=== PATIENT | female | born 1945 | race Caucasian/White ===

== ENCOUNTER → 2017-10-15 07:02 | Outpatient (CLI) | payer MEDICARE, OTHER, SELFPAY ==
--- NOTE | 2017-10-15 07:08 | BI_ITS ---
MAMMOGRAPHY - BILATERAL SCREENING REASON FOR EXAM: Female, 72 years old. Routine annual screening examination. PERTINENT HISTORY: Mother with breast cancer. Aunt with breast cancer. TECHNIQUE: Digital bilateral breast fabiana (3D mammographic acquisition) in the CC and MLO projections. 2-D mediolateral oblique (MLO) and craniocaudad (CC) views of both breasts were obtained. CAD: Full Field Digital Mammography with Computer Added Detection was performed. COMPARISON: Comparison is made with prior study dated October 10, 2016 and October 09, 2015. FINDINGS: Breast Composition: There are scattered areas of fibroglandular density. There are no dominant masses or suspicious calcifications. No other significant abnormalities are identified. There has been no significant change since the prior study. BI/SCREENING MAMM (CAD), BILAT IMPRESSION: Stable bilateral screening mammogram. Yearly follow-up mammogram recommended. (A) ASSESSMENT CATEGORY: BIRADS Category 1: Negative. A letter regarding these results will be sent to the patient by the facility within 30 days. Approximately 10% of breast cancers are not detected by mammography. A normal mammogram should not delay biopsy of a clinically suspicious abnormality. [id number] Electronically Signed: Sandro Velazquez MD at 9:46 EDT Tel [phone], Service support ,
== END ==
DX: Z12.31 Encounter for screening mammogram for malignant neoplasm of breast (principal)
CPT/HCPCS: 77063; 77067

== ENCOUNTER → 2018-10-28 07:47 | Outpatient (CLI) | payer MEDICARE, OTHER, SELFPAY ==
--- NOTE | 2018-10-28 07:50 | BI_ITS ---
MAMMOGRAPHY - BILATERAL SCREENING REASON FOR EXAM: Female, 73 years old. Routine annual screening examination. PERTINENT HISTORY: Mother with breast cancer. Aunt with breast cancer. TECHNIQUE: Digital bilateral breast nacho (3D mammographic acquisition) in the CC and MLO projections. 2-D mediolateral oblique (MLO) and craniocaudad (CC) views of both breasts were obtained. CAD: Full Field Digital Mammography with Computer Added Detection was performed. COMPARISON: Comparison is made with prior study dated October 15, 2017 and October 10, 2016. FINDINGS: Breast Composition: There are scattered areas of fibroglandular density. There are no dominant masses or suspicious calcifications. No other significant abnormalities are identified. There has been no significant change since the prior study. BI/SCREEN MAMM (CAD) W/NACHO BILAT IMPRESSION: Stable bilateral screening mammogram. Yearly follow-up mammogram recommended. (A) ASSESSMENT CATEGORY: BIRADS Category 1: Negative. A letter regarding these results will be sent to the patient by the facility within 30 days. Approximately 10% of breast cancers are not detected by mammography. A normal mammogram should not delay biopsy of a clinically suspicious abnormality. [id number] Electronically Signed: Sandro Velazquez, at 10:38 EDT , Service support ,
== END ==
DX: Z12.31 Encounter for screening mammogram for malignant neoplasm of breast (principal); Z80.3 Family history of malignant neoplasm of breast
CPT/HCPCS: 77063; 77067

== ENCOUNTER → 2019-11-01 14:29 | Outpatient (CLI) | payer MEDICARE, OTHER, SELFPAY ==
--- NOTE | 2019-11-01 14:34 | BI_ITS ---
MAMMOGRAPHY - BILATERAL SCREENING REASON FOR EXAM: Female, 74 years old. Routine annual screening examination. PERTINENT HISTORY: Mother with breast cancer. Aunt with breast cancer. TECHNIQUE: Digital bilateral breast nacho (3D mammographic acquisition) in the CC and MLO projections. 2-D mediolateral oblique (MLO) and craniocaudad (CC) views of both breasts were obtained. CAD: Full Field Digital Mammography with Computer Added Detection was performed. COMPARISON: Comparison is made with prior study dated 10/28/2018 and 10/15/2017. FINDINGS: Breast Composition: There are scattered areas of fibroglandular density. There are no dominant masses or suspicious calcifications. Stable bilateral benign-appearing axillary lymph nodes. No other significant abnormalities are identified. There has been no significant change since the prior study. BI/SCREEN MAMM (CAD) W/NACHO BILAT IMPRESSION: Stable bilateral screening mammogram. Yearly follow-up mammogram recommended. (A) ASSESSMENT CATEGORY: BIRADS Category 2: Benign. A letter regarding these results will be sent to the patient by the facility within 30 days. Approximately 10% of breast cancers are not detected by mammography. A normal mammogram should not delay biopsy of a clinically suspicious abnormality. [id number] Electronically Signed: Sandro Velazquez, at 15:17 EDT , Service support ,
== END ==
DX: Z12.31 Encounter for screening mammogram for malignant neoplasm of breast (principal)
CPT/HCPCS: 77063; 77067

== ENCOUNTER → 2020-11-06 09:44 | Outpatient (CLI) | payer MEDICARE, OTHER, SELFPAY ==
--- NOTE | 2020-11-06 09:47 | BI_ITS ---
MAMMOGRAPHY - BILATERAL SCREENING REASON FOR EXAM: Female, 75 years old. Routine annual screening examination. PERTINENT HISTORY: Mother with breast cancer. TECHNIQUE: Digital bilateral breast nacho (3D mammographic acquisition) in the CC and MLO projections. 2-D mediolateral oblique (MLO) and craniocaudad (CC) views of both breasts were obtained. CAD: Full Field Digital Mammography with Computer Added Detection was performed. COMPARISON: Comparison is made with prior study dated 11/01/2019 and 10/28/2018. FINDINGS: Breast Composition: There are scattered areas of fibroglandular density. There are no dominant masses or suspicious calcifications. Stable benign-appearing bilateral axillary lymph nodes. No other significant abnormalities are identified. There has been no significant change since the prior study. BI/SCRN MAMM (CAD)W/NACHO BILAT IMPRESSION: Stable bilateral screening mammogram. Yearly follow-up mammogram recommended. (A) ASSESSMENT CATEGORY: BIRADS Category 2: Benign. A letter regarding these results will be sent to the patient by the facility within 30 days. Approximately 10% of breast cancers are not detected by mammography. A normal mammogram should not delay biopsy of a clinically suspicious abnormality. [id number] Electronically Signed: Sandro Velazquez MD at 11:50 EDT , Service support ,
== END ==
DX: Z12.31 Encounter for screening mammogram for malignant neoplasm of breast (principal)
CPT/HCPCS: 77063; 77067

== ENCOUNTER 2021-06-07 06:12 | Outpatient (CLI) | payer MEDICARE, OTHER, SELFPAY ==
--- NOTE | 2021-06-07 06:34 | MRI_ITS ---
EXAM: MR HEAD WITHOUT AND WITH INTRAVENOUS CONTRAST CLINICAL INDICATION: TRIGEMINAL NERVE DISORDER ;right lower jaw pain TECHNIQUE: Multiplanar and multisequence MR images of the brain were obtained without and with intravenous contrast. This report was created using [employer] report [employer] technology. CONTRAST: IV 19ml Dotarem COMPARISON: None. FINDINGS: BRAIN AND EXTRA-AXIAL SPACES: Unremarkable. No intra- or extra-axial hemorrhage. No evidence of acute infarct. No intracranial mass or mass effect. There is preservation of the archer/white matter interface. Posterior fossa structures are unremarkable. Normal ventricles and cisterns. Normal Meckel''s cave cisterns. No suspicious abnormality of the trigeminal nerves. Following IV contrast administration, there are no suspicious enhancing lesions intraaxially and extra-axially. SELLA: Unremarkable. Normal sella turcica, pituitary gland, infundibular stalk, optic chiasm and hypothalamus. AUDITORY SYSTEM: Unremarkable. The internal auditory canals are patent. BONES/JOINTS: Unremarkable. No discrete lytic or blastic abnormalities. SINUSES: Unremarkable as visualized. Clear. MASTOID AIR CELLS: Unremarkable as visualized. Clear. ORBITS: Unremarkable as visualized. Both globes, extraocular muscles, optic nerves and retrobulbar fat appear unremarkable. VASCULATURE: Unremarkable as visualized. Normal flow voids in the major intracranial circulation. MRI/Brain W/WO Contrast IMPRESSION: Negative MRI brain without and with intravenous contrast including the trigeminal nerves and pathways. Electronically Signed: Nasim Acharya MD at 10:31 EST Reading Location ID and State: [facility] / [place] , Service support ,
[2021-06-07 06:45] LABS: CREATININE FINGERSTICK 0.7 mg/dL (0.55-1.02); EGFR FINGERSTICK > 60.0000 mL/min (>60)
== END 2021-06-07 23:59 | disposition home or self-care (01) ==
LOC: MRI 06:14
PROVIDERS: Referring Provider Psychiatry & Neurology Neurology; Visit Provider Psychiatry & Neurology Neurology
DX: G50.9 Disorder of trigeminal nerve, unspecified (principal)
CPT/HCPCS: 70553; A9575

== ENCOUNTER → 2021-11-14 | Outpatient (CLI) | payer MEDICARE, OTHER, SELFPAY ==
--- NOTE | 2021-11-14 09:54 | BI_ITS ---
MAMMOGRAPHY - BILATERAL SCREENING 3-D TOMOSYNTHESIS REASON FOR EXAM: Female, 76 years old. SCREENING PERTINENT HISTORY: No significant family history. TECHNIQUE: 2-D mammograms and 3-D Tomosynthesis of the breast (s) were performed. CAD was performed. COMPARISON: 11/06/2020 FINDINGS: The breast composition is composed of scattered fibroglandular density. Scattered benign calcifications are seen. No dense spiculated masses or suspicious microcalcifications are identified. No architectural distortion is identified. There is no skin thickening or retraction. There has been no significant change since the prior study. BI/SCRN MAMM (CAD)W/NACHO BILAT IMPRESSION: No mammographic signs of malignancy. Routine yearly mammograms recommended. ASSESSMENT CATEGORY: BIRADS Category 1: Negative. A letter regarding these results will be sent to the patient by the facility within 30 days. FOLLOW UP RECOMMENDATION: Yearly follow up mammogram recommended. (A) Approximately 10% of breast cancers are not detected by mammography. A normal mammogram should not delay biopsy of a clinically suspicious abnormality. Electronically Signed: Luis Watt MD at 10:49 EDT ,
== END | disposition home or self-care (01) ==
LOC: OPBI 09:52
DX: Z12.31 Encounter for screening mammogram for malignant neoplasm of breast (principal)
CPT/HCPCS: 77063; 77067

== ENCOUNTER → 2022-11-15 | Outpatient (CLI) | payer MEDICARE, OTHER, SELFPAY ==
--- NOTE | 2022-11-15 09:57 | BI_ITS ---
MAMMOGRAPHY - BILATERAL SCREENING REASON FOR EXAM: Female, 77 years old. Routine annual screening examination. PERTINENT HISTORY: Mother with breast cancer. Aunt with breast cancer. TECHNIQUE: Digital bilateral breast nacho (3D mammographic acquisition) in the CC and MLO projections. 2-D mediolateral oblique (MLO) and craniocaudad (CC) views of both breasts were obtained. CAD: Full Field Digital Mammography with Computer Added Detection was performed. COMPARISON: Comparison is made with prior study dated November 14, 2021 and November 06, 2020. FINDINGS: Breast Composition: There are scattered areas of fibroglandular density. There are no dominant masses or suspicious calcifications. No other significant abnormalities are identified. There has been no significant change since the prior study. BI/SCRN MAMM (CAD)W/NACHO BILAT IMPRESSION: Stable bilateral screening mammogram. Yearly follow-up mammogram recommended. (A) ASSESSMENT CATEGORY: BIRADS Category 1: Negative. A letter regarding these results will be sent to the patient by the facility within 30 days. Approximately 10% of breast cancers are not detected by mammography. A normal mammogram should not delay biopsy of a clinically suspicious abnormality. [id number] Electronically Signed: Sandro Velazquez MD at 10:54 EDT ,
== END | disposition home or self-care (01) ==
LOC: OPBI 09:56
DX: Z12.31 Encounter for screening mammogram for malignant neoplasm of breast (principal)
CPT/HCPCS: 77063; 77067

== ENCOUNTER → 2023-11-19 | Outpatient (CLI) | payer MEDICARE, OTHER, SELFPAY ==
--- NOTE | 2023-11-19 12:42 | BI_ITS ---
MAMMOGRAPHY - BILATERAL SCREENING REASON FOR EXAM: Female, 78 years old. Routine annual screening examination. PERTINENT HISTORY: Mother with breast cancer. Aunt with breast cancer. TECHNIQUE: Digital bilateral breast nacho (3D mammographic acquisition) in the CC and MLO projections. 2-D mediolateral oblique (MLO) and craniocaudad (CC) views of both breasts were obtained. CAD: Full Field Digital Mammography with Computer Added Detection was performed. COMPARISON: Comparison is made with prior study November 15, 2022 and November 14, 2021. FINDINGS: Breast Composition: There are scattered areas of fibroglandular density. There are no dominant masses or suspicious calcifications. No other significant abnormalities are identified. There has been no significant change since the prior study. BI/SCRN MAMM (CAD)W/NACHO BILAT IMPRESSION: Stable bilateral screening mammogram. Yearly follow-up mammogram recommended. (A) ASSESSMENT CATEGORY: BIRADS Category 1: Negative. A letter regarding these results will be sent to the patient by the facility within 30 days. Approximately 10% of breast cancers are not detected by mammography. A normal mammogram should not delay biopsy of a clinically suspicious abnormality. [id number] Electronically Signed: Sandro Velazquez MD at 13:39 EDT ,
== END | disposition home or self-care (01) ==
LOC: OPBI 12:41
DX: Z12.31 Encounter for screening mammogram for malignant neoplasm of breast (principal)
CPT/HCPCS: 77063; 77067

== ENCOUNTER → 2024-11-19 | Outpatient (CLI) | payer MEDICARE, OTHER, SELFPAY ==
--- NOTE | 2024-11-19 07:50 | BI_ITS ---
EXAM: SCRN MAMM (CAD)W/NACHO BILAT DATE: 11/19/2024 CLINICAL HISTORY: F, Age 79 y/o , SCREEN TECHNIQUE: SCRN MAMM (CAD)W/NACHO BILAT COMPARISON: Prior exam(s) dated 11/19/2023, 11/15/2022, 11/14/2021. FINDINGS: TISSUE DENSITY: There are scattered areas of fibroglandular density. Bilateral Breast Mammographic Findings: No significant masses, calcifications or other abnormalities are identified. BI/SCRN MAMM (CAD)W/NACHO BILAT IMPRESSION: There is no mammographic evidence of malignancy. OVERALL FINAL ASSESSMENT BI-RADS Must pick one of these options! RECOMMENDATION: Must pick one of these options! A letter with findings and recommendations will be mailed to the patient. Reading Location: [id number]
== END | disposition home or self-care (01) ==
LOC: OPBI 07:49
DX: Z12.31 Encounter for screening mammogram for malignant neoplasm of breast (principal)
CPT/HCPCS: 77063; 77067

== ENCOUNTER → 2024-11-30 | Outpatient (CLI) | payer MEDICARE, OTHER, SELFPAY ==
--- NOTE | 2024-11-30 | FLU_PTH ---
PATIENT: WAYNE YE LOC: [facility] U#:[id number] AGE/SX: 79/F ROOM: RE11/30/[address]: Dr. Annmarie Mcdaniel MD : 1945 BED: DIS: 11/30/2024 SPEC #: [id number] RECD: 11/30/24 15:45 STATUS: NYDIA REQ #: [id number] DENISSE: 11/30/24 00:[address]: Annmarie Mcdaniel DEPT: CYTOLOGY RECD BY: Jag Ahuja ENTERED: 12/01/24 08:18 SP TYPE: Fluid OTHR DR: Dr. Brooke Downey, DO Tissues: A - Urine Procedures: Special Stain Group II Cytospin Fluid HEADER OPERATION: Not noted PRE-OP DIAGNOSIS: Gross hematuria TISSUE SUBMITTED: A- Urine for cytology - voided DIAGNOSIS CYTOLOGY A. Urine, voided (cytospin): - No malignant cells identified. - Predominantly squamous cells with acute inflammation. CYTOLOGY STUDY Slides are reviewed. CYTOLOGY GROSS A. Received is 70 ml of yellow-cloudy fluid labeled with the patient's name and and designated per the requisition as urine. Submitted for cytology preparation. Mr 12/01/2024 CPT: 28139
[2024-11-30 15:47] LABS: Cytology, Body Fluid / CSF SEE PATHOLOGY REPORT
== END | disposition home or self-care (01) ==
LOC: LABSPEC 15:44
PROVIDERS: Visit Provider Urology
DX: R31.0 Gross hematuria (principal)
CPT/HCPCS: 88108; 88305; 88313

== ENCOUNTER → 2024-11-30 | Outpatient (CLI) | payer MEDICARE, OTHER, SELFPAY ==
[2024-11-30 15:55] LABS: Anion Gap 11 (5-15); BUN 19 mg/dL (4-19); BUN/Creat Ratio 24.9 RATIO (10-20); Calcium,Total 9.0 mg/dL (7.6-11.0); Carbon Dioxide 26.5 mmol/L (21.0-32.0); Chloride 103 mmol/L (98-108); Glucose 94 mg/dL (70-99); Potassium 4.0 mmol/L (3.3-5.1)
== END | disposition home or self-care (01) ==
LOC: MTLAB 12:52
PROVIDERS: Referring Provider Urology; Visit Provider Urology
DX: R31.9 Hematuria, unspecified (principal)
CPT/HCPCS: 36415; 80048

== ENCOUNTER → 2024-12-15 | Outpatient (CLI) | payer MEDICARE, OTHER, SELFPAY ==
--- NOTE | 2024-12-15 06:08 | CT_ITS ---
PROCEDURE: CT ABD/PELVIS W/WO CONTRAST 12/15/2024 REASON FOR EXAM: HEMATURIA Gross hematuria for 2 months. Prior hysterectomy. Personal history of hypertension, skin cancer TECHNIQUE: Procedure Code: [id number] Modality: CT Procedure: CT ABD/PELVIS W/WO CONTRAST Coronal and Sagittal reconstruction series were provided. CONTRAST: Optiray 320 VOLUME: 96 mL One or more dose reduction techniques were used (e.g., Automated exposure control, adjustment of the mA and/or kV according to patient size, use of iterative reconstruction technique. RADIATION DOSE SUMMARY: CTDlvol: 71 mGy DLP: 3006 mGycm COMPARISON: None FINDINGS: Lung bases: Clear Liver: Tiny portal venous shunt in the anterior segment right hepatic lobe shown on the portal venous phase images. Otherwise, the liver is normal. Gallbladder: Cholecystectomy. No biliary duct dilation. Spleen: Normal Pancreas: Normal Adrenals: Normal Kidneys: No renal calculus or collecting system dilation is seen. No renal mass. Small cortical defect left midpole likely the sequelae of old infarct or inflammation. Bladder: Nearly empty but otherwise normal. Unremarkable on delayed images. Reproductive Organs: Hysterectomy. Ovaries are normal. No adnexal mass. Of the level of the anus and vaginal introitus there is qualitative thickening and indistinctness of the adjacent fat planes in the directly adjacent ischiorectal fossa. The entirety of this region is not imaged. Bowel: Stomach is normal. Small bowel is not dilated. Modest amount of formed stool is present within the otherwise unremarkable colon. Appendix: The appendix is not identified. There is no inflammatory process identified in the right lower quadrant to suggest appendicitis. Lymph nodes: None appear enlarged. Vasculature: Mild atherosclerotic plaque without aneurysm. Peritoneum / Retroperitoneum: No free air, free fluid or mass. Bones: Mild decreased bone mineralization. Grade 1 anterolisthesis L4 on L5 related to facet arthropathy. No pars defects. Multilevel degenerative disc disease with marginal endplate spurring in the lower thoracic and lumbar spine. Lower lumbar facet hypertrophy. CT/CT Abd/Pelvis W/WO Contrast IMPRESSION: 1. Cholecystectomy 2. No renal calculus or renal mass seen. No collecting system dilation seen. 3. Hysterectomy. 4. Qualitative fullness and indistinctness of the fat planes adjacent to the v aginal introitus. Recommend direct inspection to ensure no inflammation. No abscess seen. The entirety of the caudal aspect of the vaginal introitus was not included. 5. Multilevel degenerative disc disease. Grade 1 anterolisthesis L4 on L5 fro m degenerative change. Reading Location: [id number]
--- OUTSIDE RECORDS SUMMARY | 2024-12-15 06:11 | XMS RPT_ITS | CCD ---
Author Organization [facility] ion [facility] Care Team Providers Care 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 Name Role Phone SHAYAN GELLER, DR MIEER Primary Care Physician [phone] Luann King PT Unavailable Unavailable Hardeep Downey DO Primary Care Provider Fidel Whitehead Unavailable Shayan, Dr. Hardeep Brock Primary Care Unavailab ronnell Garcia, Dr. Yodit Varghese Referring Giacomo Garcia, Dr. Yodit Varghese Attending Giacomo Garcia, Dr. Yodit Varghese Admitting Giacomo Downey, Dr. Hardeep Brock Referring Unavailab ronnell Downey, Dr. Hardeep Brock Primary Care Unavailab ronnell Garcia, Dr. Yodit Varghese Attending Giacomo Garcia, Dr. Yodit Varghese Admitting Giacomo Downey DO, Hardeep Brock Primary Care Provider Unav ailable Hardeep Downey DO Primary Care Provider HARDEEP DOWNEY Primary Care Unavailable YODIT GARCIA Referring Unavailable ABDIRAHMAN PASTRANA Attending Unavailabl e SHAYAN , DR MEIER Attending Unavailable SHAYAN DO, DR MEIER Primary Care Unavailable TERESA ROSE, DR JACOBO Attending Unavailabl e SHAYAN , DR MEIER Primary Care Unavailable TERESA ROSE, DR JACOBO Attending Unavailabl e SHAYAN DO, DR MEIER Primary Care Unavailable SHAYAN DO, DR MEIER Attending Unavailable SHAYAN DO, DR MEIER Primary Care Unavailable SHAYAN DO, DR MEIER Attending Unavailable SHAYAN DO, DR MEIER Primary Care Unavailable SHAYAN DO, DR MEIER Attending Unavailable SHAYAN DO, DR MEIER Primary Care Unavailable SHAYAN DO, DR MEIER Attending Unavailable SHAYAN DO, DR MEIER Primary Care Unavailable SHAYAN DO, DR MEIER Attending Unavailable SHAYAN DO, DR MEIER Primary Care Unavailable SHAYAN DO, DR MEIER Attending Unavailable SHAYAN DO, DR MEIER Primary Care Unavailable Shayan DO, Dr. Hardeep Brock Primary Care Provider Shayan DO, Dr. Hardeep Brock Attending Provider [phone] Shayan DO, Dr. Hardeep Brock Referring Provider [phone] Violeta ROSE, Dr. Anguiano Attending Provider [phone] SHAYAN DO, DR MEIER Primary Care Unavailable SHAYAN DO, DR MEIER Attending Unavailable SHAYAN DO, DR MEIER Primary Care Unavailable SHAYAN DO, DR MEIER Attending Unavailable SHAYAN DO, DR MEIER Primary Care Unavailable MELIZA ROSE, DR YELENA Skaggs Attending Unavailab le SHAYAN DO, DR MEIER Primary Care Unavailable SHAYAN DO, DR MEIER Attending Unavailable SHAYAN DO, DR MEIER Primary Care Unavailable SHAYAN DO, DR MEIER Attending Unavailable SHAYAN DO, DR MEIER Primary Care Unavailable SHAYAN DO, DR MEIER Attending Unavailable SHAYAN DO, DR MEIER Primary Care Unavailable SHAYAN DO, DR MEIER Attending Unavailable SHAYAN DO, DR MEIER Primary Care Unavailable SHAYAN DO, DR MEIER Attending Unavailable WynesAnnmarie haider Attending Unavailable Hardeep Downey Primary Care Unavailable ShayanHardeep Referring Unavailable ShayanHardeep Primary Care Unavailable Annmarie Mcdaniel Attending Unavailable Annmarie Mcdaniel Referring Unavailable Annmarie Mcdaniel Attending Unavailable Hardeep Downey Primary Care Unavailable Annmarie Mcdaniel Attending Unavailable Annmarie Mcdaniel Referring Unavailable ShayanHardeep mosquera Primary Care Unavailable ShayanHardeep Referring Unavailable ShayanHardeep Primary Care Unavailable ShayanHardeep salazar Attending Unavailable Allergies Allergy Classification Reported Allergen(s) Allergy Type Date of Onset Reaction(s) Facility (7 sources) Penicillin; Translations: [penicillins] Drug Allergy Rash [facility] Comment on above: RASH (11 sources) Penicillins; Translations: [penicillins] Drug allergy 7 Rash [facility] (4 sources) Sulfonamides; Translations: [sulfonamides] Drug allergy [facility] Comment on above: dermatitis (20 sources) Sulfonamides (Antibiotic); Translations: [sulfa drugs] Drug allergy itching [facility] (20 sources) traMADol; Translations: [tramadol] Drug Allergy 9 Memory impairment (finding), Mental Status Change [facility] (20 sources) carBAMazepine; Translations: [carbamazepine] Drug Allergy 3 Fatigue (finding), Dizziness (finding), Other: See Comments [facility] (16 sources) Penicillin; Translations: [penicillins] Drug Allergy Rash [facility] Comment on above: RASH (5 sources) Sulfonamides (Antibiotic); Translations: [SULFA (SULFONAMIDE ANTIBIOTICS)] Propensity to adverse reactions 7 Itching [facility] (4 sources) environmental [Other] Propensity to adverse reactions 0 [facility] (1 source) OTHER; Translations: [OTHER] Propensity to adverse reactions (disorder) 0 [facility] (3 sources) seasonal enviromental Allergy to substance varies [facility] (1 source) traMADol Drug Allergy 5 [facility] Repository Medications Current Medications Medication Drug Class(es) Dates Sig (Normalized) Sig (Original) acetaminophen 1000 mg oral tablet (19 sources) Start: 01-02-2022 take 1 tablet by mouth once daily Tylenol Dose : 1,000 mg = 2 tab(s), Oral, q8hr, not to exceed 3000 mg/day, 0 Refill(s) Start Date: 01/02/22 Status: Ordered Medication Dispense Status: Completed Total Allowed Fills: 1 Fills Dispensed: 0 Start: 12-21-2021 take 1 dose by mouth once ksenia y Tylenol Dose : 325 mg =, Oral, Daily, 0 Refill(s) Start Date: 12/21/21 Status: Ordered acetaminophen 500 mg / diphenhydrAMINE hydrochloride 25 mg oral tablet (2 sources) Histamine-1 Receptor Antagonist Start: 02-22-2020 take 1 tablet by mouth once daily at bedtime as needed for sleep Tylenol PM Extra Strength oral tablet Dose = 1 tab(s), Oral, qHS, PRN as needed for sleep, 0 Refill(s) Start Date: 02/22/20 Status: Ordered albuterol MDI (90 mcg/inh) CFC free inhalation aerosol (8 sources) Start: 10-21-2023 take 1-2 puff(s) by inhalation every four hours as needed for wheezing albuterol MDI (90 mcg/inh) CFC free inhalation aerosol See Instructions, PRN Shortness of breath or wheezing, 1 to 2 puff(s) Inhalation q4h, # 18 gram(s), 0 Refill(s), Pharmacy: [facility]/pharmacy #[id number], Wheezing, 163.8, cm, 10/21/23 8:25:00 EDT, Height, kg, 10/21/23 8:25:00 EDT, Dosing Weight Start Date: 10/21/23 Status: Ordered Medication Dispense Status: Completed Quantity: 18.0 Unit: g Total Allowed Fills: 1 Fills Dispensed: 0 Indications: Wheezing; Start: 10-21-2023 take 1-2 puff(s) by inhalation every four hours as needed for wheezing albuterol MDI (90 mcg/inh) CFC free inhalation aerosol See Instructions, PRN Shortness of breath or wheezing, 1 to 2 puff(s) Inhalation q4h, # 18 gram(s), 0 Refill(s), Pharmacy: [facility]/pharmacy #[id number], Wheezing, 163.8, cm, 10/21/23 8:25:00 EDT, Height, kg, 10/21/23 8:25:00 EDT, Dosing Weight Start Date: 10/21/23 Status: Ordered Quantity: 18.0 Unit: g Repeat number: 1 Indications: Wheezing; Start: 10-21-2023 take 1-2 puff(s) by inhalation every four hours as needed for wheezing albuterol MDI (90 mcg/inh) CFC free inhalation aerosol See Instructions, PRN Shortness of breath or wheezing, 1 to 2 puff(s) Inhalation q4h, # 18 gram(s), 0 Refill(s), Pharmacy: [facility]/pharmacy #[id number], Wheezing, 163.8, cm, 10/21/23 8:25:00 EDT, Height, kg, 10/21/23 8:25:00 EDT, Dosing Weight Start Date: 10/21/23 Status: Ordered ascorbic acid 500 mg oral tablet (19 sources) Vitamin C Start: 12-21-2021 take 1 dose by mouth once daily Vitamin C Dose : 500 mg =, Oral, qDay, 0 Refill(s) Start Date: 12/21/21 Status: Ordered Medication Dispense Status: Completed Total Allowed Fills: 1 Fills Dispensed: 0 aspirin 81 mg delayed release oral tablet (1 source) Platelet Aggregation Inhibitor, Nonsteroidal Anti-inflammatory Drug Start: 01-02-2022 End: 02-01-2022 take 1 tablet by mouth twice daily aspirin 81 mg oral delayed release tablet Dose : 81 mg = 1 tab(s), Oral, BID, Take 81 mg aspirin twice daily with food for 4 weeks postoperatively for DVT prophylaxis, # 60 tab(s), 0 Refill(s), [facility]acy: [id number], 160, cm, 01/01/22 12:32:00 EDT, Height Start Date: 01/02/22 Stop Date: 02/01/22 Status: Ordered bifidobacterium animalis [id number] unt / lactobacillus acidophilus [id number] unt oral capsule (4 sources) L. acidophilus/Bifid. animalis 32 billion cell cap Take by mouth as directed. 0 Active Comment on above: Take by mouth as dir ected. cetirizine hydrochloride 10 mg oral tablet (6 sources) Histamine-1 Receptor Antagonist Start: 05-13-2024 take 1 tablet by mouth once daily Cetirizine 10 mg tablet Active 10 mg PO daily November 30, 2024 12:00am Start: 09-03-2021 Zyrtec 10 mg o ral tablet Dose : 10 mg = 1 tab(s), Oral, qDay, # 30 tab(s), 2 Refill(s), Pharmacy: [facility] 162.2, cm, 09/03/21 16:48:00 EDT, Height Start Date: 09/03/21 Status: Ordered cholecalciferol 0.05 mg oral capsule (5 sources) Vitamin D Start: 11-30-2024 take 1 capsule by mouth once daily Cholecalciferol (Vitamin D3) 50 mcg (2,000 unit) capsule Active 50 ug PO daily November 30, 2024 12:00am cholecalciferol (VITAMIN D3) 1,000 unit tab tablet Take 2,000 Units by mouth. 0 Active Comment on above: Take 2,000 Units by mouth. cinnamon preparation 500 mg oral tablet (11 sources) Non-Standardized Food Allergenic Extract Start: 12-28-2019 take 1 capsule by mouth once daily Cinnamon 500 mg oral capsule 1 cap(s), Oral, qDay, 0 Refill(s) Start Date: 12/28/19 Status: Ordered Start: 12-28-2019 Cinnamon 500 m g oral capsule See Instructions, 0 Refill(s) Start Date: 12/28/19 Status: Ordered clobetasol propionate 0.5 mg/ml topical solution (4 sources) Corticosteroid Start: 10-21-2023 clobetasol 0.0 5% topical solution MASSAGE INTO THE SCALP AND LEAVE ON OVERNIGHT EVERY NIGHT FOR 2WKS, THEN USE 2-3X WEEK NEEDED Start Date: 10/21/23 Status: Ordered Co Q-10 100 mg oral capsule (4 sources) Start: 06-13-2023 Co Q-10 100 mg oral capsule Dose : 100 mg = 1 cap(s), Oral, Daily, 0 Refill(s) Start Date: 06/13/23 Status: Ordered Cranberry preparation (8 sources) Non-Standardized Food Allergenic Extract, Non-Standardized Plant Allergenic Extract Start: 11-17-2023 cranberry oral capsule 0 Refill(s) Start Date: 11/17/23 Status: Ordered Medication Dispense Status: Completed Total Allowed Fills: 1 Fills Dispensed: 0 Start: 11-17-2023 cranberry oral capsule 0 Refill(s) Start Date: 11/17/23 Status: Ordered Repeat number: 1 Start: 11-17-2023 cranberry oral capsule 0 Refill(s) Start Date: 11/17/23 Status: Ordered DME MISCellaneous (2 sources) Start: 08-24-2020 DME MISCellane ous See Instructions, onetouch verio test strips 1 strip 3 times daily # 300 for 90 days and 3 refills., # 1 EA, 0 Refill(s), [facility]acy: [facility] Diabetes, 163, cm, 08/24/20 9:26:00 EDT, Height, 97.3, kg, 08/24/20 9:26:00 EDT, Dosing Weight Start Date: 08/24/20 Status: Ordered docusate sodium 50 mg / sennosides, long-term 8.6 mg oral tablet (1 source) Start: 01-02-2022 End: 01-04-2022 take 1 tablet by mouth twice daily Senokot S 50 mg-8.6 mg oral tablet Dose = 2 tab(s), Oral, BID, Take until first bowel movement, then as needed, # 30 tab(s), 0 Refill(s), [facility]acy: [facility] #[id number], 160, cm, 01/01/22 12:32:00 EDT, Height Start Date: 01/02/22 Stop Date: 01/04/22 Status: Ordered famotidine 20 mg oral tablet (1 source) Histamine-2 Receptor Antagonist Start: 01-02-2022 Pepcid 20 mg oral tablet Dose : 20 mg = 1 tab(s), Oral, qDay, # 30 tab(s), 0 Refill(s), Pharmacy: [facility] #[id number], 160, cm, 01/01/22 12:32:00 EDT, Height Start Date: 01/02/22 Status: Ordered fexofenadine hydrochloride 180 mg oral tablet (20 sources) Histamine-1 Receptor Antagonist Start: 05-26-2014 Archana Oral, 0 Refill(s) Start Date: 05/26/14 Status: Ordered Start: 09-05-2009 Archana 24 Suzan r Allergy oral tablet Dose : 180 mg = 1 tab(s), Oral, Daily Start Date: 01/01/22 Status: Ordered Medication Dispense Status: Completed Total Allowed Fills: 1 Fills Dispensed: 0 Comment on above: Take one(1) tablet d aily. gabapentin 100 mg oral capsule (1 source) Anti-epileptic Agent Start: 08-08-19 gabapentin 100 mg oral capsule Dose : 100 mg = 1 cap(s), Oral, qDay, # 60 cap(s), 0 Refill(s), 97.2 Start Date: 08/07/21 Status: Ordered ketoconazole 20 mg/ml medicated shampoo (4 sources) Azole Antifungal Start: 10-21-19 ketoconazole 2% topical shampoo LATHER THE SCALP AND ALLOW TO SIT FOR 5-10 MINUTES BEFORE RINSING 3-4 DAYS A WEEK Start Date: 10/21/23 Status: Ordered Lactobacillus Combination No.9 (Adult 50 Plus Probiotic) 4 billion cell capsule (1 source) Start: 12-01-19 take 4 capsules by mouth once daily Lactobacillus Combination No.9 (Adult 50 Plus Probiotic) 4 billion cell capsule Active 4000 NMA PO daily November 30, 2024 12:00am administer with a meal levothyroxine sodium 0.075 mg oral tablet (12 sources) l-Thyroxine Start: 12-01-19 take 1 tablet by mouth once daily Levothyroxine 75 mcg tablet Active 75 ug PO daily November 30, 2024 12:00am Start: 09-17-2024 levothyroxine 75 mcg (0.075 mg) oral tablet Dose : 75 mcg = 1 tab(s), Oral, qDay, # 100 tab(s), 1 Refill(s), Pharmacy: [facility]/pharmacy #[id number], 161, cm, 09/07/24 11:24:00 EDT, Height, kg, 09/07/24 11:24:00 EDT, Dosing Weight Start Date: 09/17/24 Status: Ordered Medication Dispense Status: Completed Quantity: 100.0 Unit: tab(s) Total Allowed Fills: 2 Fills Dispensed: 0 Start: 02-19-2024 levothyroxine 75 mcg (0.075 mg) oral tablet Dose : 75 mcg = 1 tab(s), Oral, qDay, # 90 tab(s), 1 Refill(s), Pharmacy: [facility]/pharmacy #[id number], 161.5, cm, 12/16/23 14:00:00 EDT, Height, kg, 12/16/23 14:00:00 EDT, Dosing Weight Start Date: 02/19/24 Status: Ordered Quantity: 90.0 Unit: tab(s) Repeat number: 2 Start: 10-01-2023 take 1 tablet by mouth once le vothyroxine (SYNTHROID) 75 mcg tablet Take 1 tablet by mouth every afternoon. 0 10/01/2023 Active Start: 09-11-2023 levothyroxine 75 mcg (0.075 mg) oral tablet Dose : 75 mcg = 1 tab(s), Oral, qDay, # 90 tab(s), 1 Refill(s), Pharmacy: [facility]/pharmacy #[id number], 164, cm, 09/11/23 8:52:00 EDT, Height, kg, 09/11/23 8:52:00 EDT, Dosing Weight Start Date: 09/11/23 Status: Ordered Start: 08-12-2023 levothyroxine 75 mcg (0.075 mg) oral tablet Dose : 75 mcg = 1 tab(s), Oral, qDay, # 30 tab(s), 1 Refill(s), Pharmacy: [facility]/pharmacy #[id number], 164, cm, 08/12/23 14:16:00 EDT, Height, kg, 08/12/23 14:16:00 EDT, Dosing Weight Start Date: 08/12/23 Status: Ordered Start: 07-15-2023 levothyroxine 75 mcg (0.075 mg) oral tablet Dose : 75 mcg = 1 tab(s), Oral, qDay, # 30 tab(s), 1 Refill(s), [id number], 164, cm, 07/15/23 13:30:00 EDT, Height, kg, 07/15/23 13:30:00 EDT, Dosing Weight Start Date: 07/15/23 Status: Ordered liothyronine sodium 0.005 mg oral tablet (11 sources) l-Triiodothyronine Start: 11-30-2024 take 1 tablet by mouth once daily Liothyronine 5 mcg tablet Active 5 ug PO daily November 30, 2024 12:00am Start: 08-10-2024 liothyronine 5 mcg oral tablet Dose : 5 mcg = 1 tab(s), Oral, Daily, # 90 tab(s), 1 Refill(s), Pharmacy: [facility]/pharmacy #[id number], 161, cm, 06/15/24 14:05:00 EDT, Height, kg, 06/15/24 14:05:00 EDT, Dosing Weight Start Date: 08/10/24 Status: Ordered Medication Dispense Status: Completed Quantity: 90.0 Unit: tab(s) Total Allowed Fills: 2 Fills Dispensed: 0 Start: 10-06-2023 take 1 tablet by mouth once li othyronine (CYTOMEL) 5 mcg tablet Take 1 tablet by mouth every afternoon. 0 10/06/2023 Active Start: 09-11-2023 liothyronine 5 mcg oral tablet Dose : 5 mcg = 1 tab(s), Oral, Daily, # 90 tab(s), 1 Refill(s), Pharmacy: [facility]/pharmacy #[id number], 164, cm, 09/11/23 8:52:00 EDT, Height, kg, 09/11/23 8:52:00 EDT, Dosing Weight Start Date: 09/11/23 Status: Ordered Start: 08-12-2023 liothyronine 5 mcg oral tablet Dose : 5 mcg = 1 tab(s), Oral, Daily, # 30 tab(s), 1 Refill(s), Pharmacy: [facility]/pharmacy #[id number], 164, cm, 08/12/23 14:16:00 EDT, Height, kg, 08/12/23 14:16:00 EDT, Dosing Weight Start Date: 08/12/23 Status: Ordered lisinopril 2.5 mg oral tablet (20 sources) Angiotensin Converting Enzyme Inhibitor Start: 06-15-2024 take 1 tablet by mouth once daily Lisinopril 2.5 mg tablet Active 2.5 mg PO daily November 30, 2024 12:00am Start: 09-05-2009 lisinopril 5 m g oral tablet Dose : 5 mg = 1 tab(s), Oral, qPM, # 90 tab(s), 3 Refill(s), Pharmacy: [facility]/pharmacy #[id number], 164, cm, 06/13/23 9:28:00 EDT, Height, kg, 06/13/23 9:28:00 EDT, Dosing Weight Start Date: 06/13/23 Status: Ordered Comment on above: Take one(1) tablet d aily. magnesium oxide 500 mg oral tablet (15 sources) Start: 07-15-19 20 Magnesium Oxide 500 mg tab Take by mouth. 0 07/15/2019 Active Comment on above: Take by mouth. meloxicam 7.5 mg oral tablet (1 source) Nonsteroidal Anti-inflammatory Drug Start: 01-03-20 Mobic 7.5 mg oral tablet Dose : 7.5 mg = 1 tab(s), Oral, BIDM, Do not take any other nonsteroidal anti-inflammatories while on meloxicam/Mobic, # 60 tab(s), 0 Refill(s), Pharmacy: [facility] #[id number], 160, cm, 01/01/22 12:32:00 EDT, Height Start Date: 01/02/22 Status: Ordered metroNIDAZOLE 0.0075 mg/mg topical gel (4 sources) Nitroimidazole Antimicrobial Start: 10-21-19 metroNIDAZOLE 0.75% topical gel APPLY TO THE FULL FACE ONCE DAILY, MAY MIX 50/50 WITH A GENTLE MOISTURIZER. Start Date: 10/21/23 Status: Ordered Misc Medication (2 sources) Start: 11-22-19 Misc Medication 0 Refill(s), 97.3 Start Date: 11/21/20 Status: Ordered Multivitamin preparation (19 sources) Start: 12-22-19 take 1 tablet by mouth once daily Multivitamin Dose = 1 tab(s), Oral, Daily, 0 Refill(s) Start Date: 12/21/21 Status: Ordered Medication Dispense Status: Completed Total Allowed Fills: 1 Fills Dispensed: 0 Start: 12-21-2021 take 1 tablet by krishan th once daily Multivitamin Dose = 1 tab(s), Oral, Daily, 0 Refill(s) Start Date: 12/21/21 Status: Ordered Repeat number: 1 Start: 12-21-2021 take 1 tablet by krishan th once daily Multivitamin Dose = 1 tab(s), Oral, Daily, 0 Refill(s) Start Date: 12/21/21 Status: Ordered multivitamins(DAILY MULTIPLE TAB) (4 sources) Start: 09-05-2009 multivitamins(DAILY MULTIPLE TAB) Take one(1) tablet daily. ` 0 09/05/2009 Active Comment on above: Take one(1) tablet d aily. Omeprazole (12 sources) Proton Pump Inhibitor Start: 11-17-2023 omeprazole Oral, qDay, 0 Refill(s) Start Date: 11/17/23 Status: Ordered Start: 09-11-2023 take 1 capsule by mouth once o meprazole (PRILOSEC) 20 mg capsule Take 1 capsule by mouth every afternoon. 0 09/11/2023 Active Start: 09-11-2023 omeprazole 20 mg oral delayed release capsule Dose : 20 mg = 1 cap(s), Oral, qDay, # 90 cap(s), 0 Refill(s), Pharmacy: [facility]/pharmacy #[id number], 164, cm, 09/11/23 8:52:00 EDT, Height, kg, 09/11/23 8:52:00 EDT, Dosing Weight Start Date: 09/11/23 Status: Ordered Medication Dispense Status: Completed Quantity: 90.0 Unit: cap(s) Total Allowed Fills: 1 Fills Dispensed: 0 Omeprazole 20 mg capsule,delayed release(DR/EC) (1 source) Start: 11-30-2024 take 1 capsule by mouth once daily Omeprazole 20 mg capsule,delayed release(DR/EC) Active 20 mg PO daily November 30, 2024 12:00am oxyCODONE hydrochloride 5 mg oral tablet (1 source) Opioid Agonist Start: 01-02-2022 End: 01-09-2022 take 1-2 tablets by mouth every four hours as needed for pain oxyCODONE 5 mg oral tablet ( IMMEDIATE release ) See Instructions, PRN as needed for pain, 1-2 tab(s) Oral q4h, # 42 tab(s), 0 Refill(s), 01/09/22 8:10:00 EDT, [facility]acy: [facility] #[id number], Status post total left knee replacement, 160, cm, 01/01/22 12:32:00 EDT, Height, 88 Start Date: 01/02/22 Stop Date: 01/09/22 Status: Ordered phenylephrine hydrochloride 25 mg/ml ophthalmic solution (2 sources) alpha-1 Adrenergic Agonist Start: 10-14-2023 End: 10-14-2023 PHENYLephrine 2.5 % 1 Drop (AK-DILATE, EJNY-SYNEPHRINE) Pregnenolone Misc Powd (4 sources) Start: 10-17-2006 Pregnenolone Misc Powd 100 MG SR ONE DAILY 0 10/17/2006 Active Comment on above: 100 MG SR ONE DAILY Probiotic (20 sources) Start: 10-15-2018 take 1 capsule by mouth once daily Probiotic Dose = 1 cap(s), Oral, Daily, 0 Refill(s) Start Date: 10/15/18 Status: Ordered Medication Dispense Status: Completed Total Allowed Fills: 1 Fills Dispensed: 0 Start: 10-15-2018 take 1 capsule by [facility] once daily Probiotic Dose = 1 cap(s), Oral, Daily, 0 Refill(s) Start Date: 10/15/18 Status: Ordered Repeat number: 1 Start: 10-15-2018 take 1 capsule by [facility] once daily Probiotic Dose = 1 cap(s), Oral, Daily, 0 Refill(s) Start Date: 10/15/18 Status: Ordered Start: 10-15-2018 Probiotic Oral , Daily, 0 Refill(s) Start Date: 10/15/18 Status: Ordered proparacaine hydrochloride 5 mg/ml ophthalmic solution (3 sources) Local Anesthetic Start: 10-14-2023 End: 10-14-2023 proparacaine 0.5 % 1 Drop (ALCAINE) Start: 09-16-2022 End: 09-16-2022 proparacaine 0.5 % 1 Drop (A LCAINE) Quercitin (3 sources) Start: 09-07-2024 take 500 mg by mouth once daily Quercitin 500 mg, Oral, qDay, 0 Refill(s) Start Date: 09/07/24 Status: Ordered Medication Dispense Status: Completed Total Allowed Fills: 1 Fills Dispensed: 0 Start: 09-07-2024 take 500 mg by mouth once ksenia y Quercitin 500 mg, Oral, qDay, 0 Refill(s) Start Date: 09/07/24 Status: Ordered Repeat number: 1 thyroid (long-term) 60 mg oral tab let (15 sources) Start: 06-13-2023 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 60 mg oral tablet Dose : 60 mg = 1 tab(s), Oral, qDay, # 90 tab(s), 1 Refill(s), Pharmacy: [facility] #[id number], 164, cm, 06/13/23 9:28:00 EDT, Height, kg, 06/13/23 9:28:00 EDT, Dosing Weight Start Date: 06/13/23 Status: Ordered Start: 05-30-2022 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 60 mg oral tablet Dose : 60 mg = 1 tab(s), Oral, qDay, # 90 tab(s), 1 Refill(s), Pharmacy: [facility] #[id number], 162.6, cm, 12/19/22 8:07:00 EDT, Height, kg, 12/19/22 8:07:00 EDT, Dosing Weight Start Date: 12/19/22 Status: Ordered Start: 12-04-2021 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 60 mg oral tablet Dose : 60 mg = 1 tab(s), Oral, qDay, # 90 tab(s), 1 Refill(s), Pharmacy: [facility] #[id number], 162.2, cm, 12/04/21 10:18:00 EDT, Height, kg, 12/04/21 10:18:00 EDT, Dosing Weight Start Date: 12/04/21 Status: Ordered Start: 06-22-2021 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 60 mg oral tablet Dose : 60 mg = 1 tab(s), Oral, qDay, # 30 tab(s), 5 Refill(s), Pharmacy: [facility] 163, cm, 06/22/21 13:20:00 EDT, Height, kg, 06/22/21 13:10:00 EDT, Dosing Weight Start Date: 06/22/21 Status: Ordered Comment on above: Take 60 mg by mouth once daily. tropicamide 10 mg/ml ophthalmic solution (2 sources) Anticholinergic Start: 10-14-19 End: 10-14-19 tropicamide 1 % 1 Drop (MYDRIACYL) turmeric extract 500 mg oral capsule (4 sources) Start: 10-11-19 turmeric 500 mg oral capsule 0 Refill(s) Start Date: 10/11/19 Status: Ordered Tylenol PM Extra Strength oral tablet (2 sources) Start: 02-22-20 take 1 tablet by mouth once daily at bedtime as needed for sleep Tylenol PM Extra Strength oral tablet Dose = 1 tab(s), Oral, qHS, PRN as needed for sleep, 0 Refill(s) Start Date: 02/22/20 Status: Ordered Vitamin B Complex oral tablet (3 sources) Start: 09-08-19 take 1 tablet by mouth once daily Vitamin B Complex oral tablet Dose = 1 tab(s), Oral, Daily, 0 Refill(s) Start Date: 09/07/24 Status: Ordered Medication Dispense Status: Completed Total Allowed Fills: 1 Fills Dispensed: 0 Start: 09-07-2024 take 1 tablet by krishan th once daily Vitamin B Complex oral tablet Dose = 1 tab(s), Oral, Daily, 0 Refill(s) Start Date: 09/07/24 Status: Ordered Repeat number: 1 Vitamin D3 (19 sources) Start: 10-15-2018 Vitamin D3 2,0 00, Oral, Daily, 0 Refill(s) Start Date: 10/15/18 Status: Ordered Start: 10-15-2018 Vitamin D3 Dos e : 1,000 unit(s) = 1 tab(s), Oral, Daily, 0 Refill(s) Start Date: 10/15/18 Status: Ordered Vitamin D3 50 mcg (2000 intl units) oral capsule (4 sources) Start: 06-15-2024 Vitamin D3 50 mcg (2000 intl units) oral capsule Dose : 50 mcg = 1 cap(s), Oral, BID, 0 Refill(s) Start Date: 06/15/24 Status: Ordered Medication Dispense Status: Completed Total Allowed Fills: 1 Fills Dispensed: 0 Start: 06-15-2024 Vitamin D3 50 mcg (2000 intl units) oral capsule Dose : 50 mcg = 1 cap(s), Oral, BID, 0 Refill(s) Start Date: 06/15/24 Status: Ordered Repeat number: 1 Zinc (19 sources) Start: 12-21-2021 take 1 dose by mouth once daily Zinc Dose : 30 mg =, Oral, qDay, 0 Refill(s) Start Date: 12/21/21 Status: Ordered Medication Dispense Status: Completed Total Allowed Fills: 1 Fills Dispensed: 0 Start: 12-21-2021 take 1 dose by mouth once ksenia y Zinc Dose : 30 mg =, Oral, qDay, 0 Refill(s) Start Date: 12/21/21 Status: Ordered Repeat number: 1 Start: 12-21-2021 take 1 dose by mouth once ksenia y Zinc Dose : 30 mg =, Oral, qDay, 0 Refill(s) Start Date: 12/21/21 Status: Ordered Completed/Discontinued Medications Medication Drug Class(es) Dates Sig (Normalized) Sig (Original) fluorometholone 1 mg/ml ophthalmic suspension (4 sources) Corticosteroid Start: 09-09-2022 End: 10-04-2022 fluorometholone (FML LIQUID FILM) 0.1 % ophthalmic suspension Use 1 Drop in the left eye three times daily. 5 mL 2 09/20/2022 10/04/2022 Discontinued (Course of therapy completed) Comment on above: Use 1 Drop in both e yes three times daily. Use 1 Drop in the le ft eye three times daily. fluticasone propionate 0.05 mg/actuat metered dose nasal spray (8 sources) Corticosteroid Start: 05-13-2024 End: 08-11-2024 take 100 ug nasal route once daily fluticasone 50 mcg/inh NASAL spray 100 mcg Dose = 2 spray(s), Nostril, each, qDay, shake well before using, # 16 gram(s), 2 Refill(s), Pharmacy: [facility]/pharmacy #[id number], Acute rhinosinusitis Seasonal allergies, 161, cm, 05/13/24 16:07:00 EST, Height, kg, 05/13/24 16:07:00 EST, Dosing Weight Start Date: 05/13/24 Stop Date: 08/11/24 Status: Ordered Medication Dispense Status: Completed Quantity: 16.0 Unit: g Total Allowed Fills: 3 Fills Dispensed: 0 Indications: Acute sinusitis, unspecified; Other seasonal allergic rhinitis; Start: 03-11-2011 take 1-2 spray(s) na job route once daily fluticasone 50 mcg/Actuation NASAL nasal spray Indications: Allergic rhinitis, cause unspecified Use 1-2 Sprays in each nostril once daily. 1 Bottle 11 03/11/2011 Active Comment on above: Use 1-2 Sprays in ea ch nostril once daily. ketorolac tromethamine 5 mg/ml ophthalmic solution (5 sources) Nonsteroidal Anti-inflammatory Drug, Cyclooxygenase Inhibitor Start: 10-05-19 End: 10-14-19 24 take 1 drop(s) into the eye(s) three times daily keTORolac (ACULAR) 0.5 % ophthalmic solution Use 1 Drop in the right eye three times daily. 5 mL 2 10/04/2022 10/14/2023 Discontinued (Course of therapy completed) Start: 10-04-2022 take 1 drop(s) into the eye(s) three times daily keTORolac (ACULAR) 0.5 % ophthalmic solution Use 1 Drop in the right eye three times daily. 5 mL 2 10/04/2022 Active Start: 09-19-2022 End: 11-07-2022 take 1 drop(s) into the eye(s) four times daily keTORolac (ACULAR) 0.5 % ophthalmic solution Use 1 Drop in the left eye four times daily. 5 mL 1 10/03/2022 11/07/2022 Active Comment on above: Use 1 Drop in the ri ght eye four times daily. For 7 days, then 3 times daily until 10/24/2022 Use 1 Drop in the le ft eye four times daily. Use 1 Drop in the ri ght eye three times daily. prednisoLONE acetate 10 mg/ml ophthalmic suspension (5 sources) Corticosteroid Start: 10-04-2022 End: 10-14-2023 prednisoLONE acetate (PRED FORTE) 1 % ophthalmic suspension Use 1 Drop in the right eye three times daily. 5 mL 2 10/04/2022 10/14/2023 Discontinued (Course of therapy completed) Start: 10-04-2022 prednisoLONE a cetate (PRED FORTE) 1 % ophthalmic suspension Use 1 Drop in the right eye three times daily. 5 mL 2 10/04/2022 Active Start: 09-20-2022 End: 11-07-2022 prednisoLONE acetate (PRED F ORTE) 1 % ophthalmic suspension Use 1 Drop in the left eye four times daily. 5 mL 1 10/03/2022 11/07/2022 Active Comment on above: Use 1 Drop in the ri ght eye four times daily. For 7 days, then 3 times daily until 10/24/2022 Use 1 Drop in the le ft eye four times daily. Use 1 Drop in the ri ght eye three times daily. Problems Active Problems Problem Classification Problem Date Documented Date Episodic/Chronic Allergic reactions (6 sources) Allergy status to penicillin; Translations: [Allergy status to sulfonamides status] Onset: 10-03-2022 10-07-2022 Episodic Anxiety disorders (20 sources) Anxiety; Translations: [Claustrophobia] Onset: 01-02-2022 10-23-2018 Chronic Diabetes mellitus without complication (20 sources) Prediabetes; Translations: [Hyperglycemia] 07-15-2019 Episodic Disorders of lipid metabolism (20 sources) Hyperlipidemia; Translations: [Hyperlipidemia, unspecified] 07-15-2019 Chronic Essential hypertension (20 sources) Hypertensive disorder; Translations: [Essential (primary) hypertension] Onset: 10-03-2022 10-23-2018 Chronic Genitourinary symptoms and ill-defined conditions (6 sources) Blood in urine; Translations: [Hematuria, unspecified] Onset: 09-28-2024 11-30-2024 Episodic Malaise and fatigue (5 sources) Fatigue; Translations: [Other fatigue] Onset: 07-21-2024 Episodic Malignant neoplasm without specification of site (20 sources) Squamous cell carcinoma 10-23-2018 Chronic Mood disorders (20 sources) Recurrent major depressive episodes, moderate 06-27-2020 Chronic Mycoses (20 sources) Tinea pedis 06-22-2021 Episodic Nutritional deficiencies (20 sources) Vitamin D deficiency; Translations: [Vitamin D deficiency, unspecified] 10-23-2018 Chronic Osteoarthritis (20 sources) Osteoarthritis of knee; Translations: [Arthritis] Onset: 09-09-2022 12-04-2021 Chronic Other connective tissue disease (1 source) Presence of unspecified artificial knee joint; Translations: [Presence of unspecified artificial knee joint] Onset: 10-03-2022 Chronic Other connective tissue disease (1 source) Artificial knee joint present; Translations: [Presence of unspecified artificial knee joint] 10-07-2022 Chronic Other connective tissue disease (20 sources) Fibromyalgia 10-23-2018 Episodic Other connective tissue disease (1 source) Trochanteric bursitis of left hip; Translations: [Trochanteric bursitis, left hip] Episodic Other eye disorders (2 sources) Bilateral vitreous floaters; Translations: [Other vitreous opacities, bilateral] Onset: 10-14-2023 10-14-2023 Chronic Other eye disorders (1 source) H/O: L cataract extraction; Translations: [Cataract extraction status, left eye] Episodic Other eye disorders (2 sources) Dry eyes; Translations: [Dry eye syndrome of bilateral lacrimal glands] Onset: 10-14-2023 10-14-2023 Episodic Other eye disorders (2 sources) Dermatochalasis of right upper eyelid; Translations: [Dermatochalasis] Onset: 10-14-2023 10-14-2023 Episodic Other nutritional; endocrine; and metabolic disorders (20 sources) Body mass index 30+ - obesity; Translations: [Body mass index (BMI) 35.0-35.9, adult] 05-15-2021 Chronic Other nutritional; endocrine; and metabolic disorders (7 sources) Morbid obesity; Translations: [Morbid (severe) obesity due to excess calories] 05-15-2021 Chronic Other nutritional; endocrine; and metabolic disorders (2 sources) Obesity; Translations: [Obesity, unspecified] Chronic Other nutritional; endocrine; and metabolic disorders (2 sources) Obese class II; Translations: [Body mass index (BMI) 36.0-36.9, adult] Chronic Other nutritional; endocrine; and metabolic disorders (1 source) Obesity, unspecified; Translations: [Obesity, unspecified] Onset: 09-19-2022 Chronic Other nutritional; endocrine; and metabolic disorders (1 source) Body mass index (BMI) 35.0-35.9, adult; Translations: [Body mass index [BMI] 35.0-35.9, adult] Onset: 09-19-2022 Chronic Other nutritional; endocrine; and metabolic disorders (12 sources) Severe obesity 06-13-2023 Chronic Other screening for suspected conditions (not mental disorders or infectious disease) (2 sources) Encounter for screening for diabetes mellitus; Translations: [Encounter for screening mammogram for malignant neoplasm of breast] Onset: 11-26-2024 Episodic Other upper respiratory disease (8 sources) Seasonal allergy 10-21-2023 Chronic Residual codes; unclassified (20 sources) Obstructive sleep apnea syndrome; Translations: [Obstructive sleep apnea (adult) (pediatric)] Onset: 01-02-2022 05-14-2019 Chronic Residual codes; unclassified (6 sources) Sleep apnea; Translations: [Sleep apnea, unspecified] Onset: 09-09-2022 Chronic Residual codes; unclassified (1 source) Obstructive sleep apnea (adult) (pediatric); Translations: [Obstructive sleep apnea (adult) (pediatric)] Onset: 10-03-2022 Chronic Residual codes; unclassified (20 sources) Increased body mass index 07-15-2019 Episodic Residual codes; unclassified (1 source) Family history of other specified eye disorder; Translations: [Family history of other specified eye disorder] Episodic Residual codes; unclassified (3 sources) FH: Cataract 09-10-2022 Episodic Residual codes; unclassified (3 sources) Preoperative state 09-10-2022 Episodic Thyroid disorders (20 sources) Hypothyroidism; Translations: [Hypothyroidism, unspecified] Onset: 01-02-2022 05-24-2014 Chronic Unclassified (3 sources) Patient encounter status 09-10-2022 Past or Other Problems Problem Classification Problem Date Documented Date Episodic/Chronic Cataract (19 sources) Senile combined form cataract of right eye; Translations: [Combined forms of age-related cataract, right eye] Onset: 09-09-2022 Resolved: 10-14-2023 Chronic Complications of surgical procedures or medical care (6 sources) Hypertensive disorder; Translations: [Postprocedural hypertension] Onset: 01-02-2022 Episodic Other connective tissue disease (1 source) Trochanteric bursitis, left hip; Translations: [Trochanteric bursitis, left hip] Onset: 07-21-2024 Episodic Other eye disorders (6 sources) Dermatochalasis of left upper eyelid; Translations: [Dermatochalasis of left upper eyelid] Onset: 09-09-2022 Resolved: 10-14-2023 Episodic Other eye disorders (6 sources) Dermatochalasis of right upper eyelid; Translations: [Dermatochalasis of right upper eyelid] Onset: 09-09-2022 Resolved: 10-14-2023 Episodic Other eye disorders (5 sources) H/O: R cataract extraction; Translations: [Cataract extraction status, right eye] Onset: 09-20-2022 Resolved: 10-14-2023 Episodic Results Test Name Value Interpretation Reference Range Facility .Auto Diffon 12-06-2024 Basophil, Absolute 0.0 10 3/mcL Normal 0.0-0.3 [facility] Comment on above: Performed By: #### F T4, CBC, VIDH, ADIFF, TSH, GFR, ANEU, FE, FERR, CMP, FT3 #### [facility] [address] [place], [place] [address] Basophils/100 WBC (Bld) 0.1 % Normal 0.0-2.5 [facility] Comment on above: Performed By: #### F T4, CBC, VIDH, ADIFF, TSH, GFR, ANEU, FE, FERR, CMP, FT3 #### [address] [address] Eosinophil, Absolute 0.5 10 3/mcL Normal 0.0-0.7 [facility] Comment on above: Performed By: #### F T4, CBC, VIDH, ADIFF, TSH, GFR, ANEU, FE, FERR, CMP, FT3 #### [address] [address] Eosinophils/100 WBC (Bld) 9.2 % High 0.0-6.0 [facility] Comment on above: Performed By: #### F T4, CBC, VIDH, ADIFF, TSH, GFR, ANEU, FE, FERR, CMP, FT3 #### [address] [address] Lymphocyte, Absolute 1.7 10 3/mcL Normal 0.9-4.3 [facility] Comment on above: Performed By: #### F T4, CBC, VIDH, ADIFF, TSH, GFR, ANEU, FE, FERR, CMP, FT3 #### [address] [address] Lymphocytes/100 WBC (Bld) 30.9 % Normal 20.0-40.0 [facility] Comment on above: Performed By: #### F T4, CBC, VIDH, ADIFF, TSH, GFR, ANEU, FE, FERR, CMP, FT3 #### [address] [address] Monocyte, Absolute 0.4 10 3/mcL Normal 0.1-1.4 [facility] Comment on above: Performed By: #### F T4, CBC, VIDH, ADIFF, TSH, GFR, ANEU, FE, FERR, CMP, FT3 #### [address] [address] Monocytes/100 WBC (Bld) 7.3 % Normal 2.0-13.0 [facility] Comment on above: Performed By: #### F T4, CBC, VIDH, ADIFF, TSH, GFR, ANEU, FE, FERR, CMP, FT3 #### [address] [address] Neutrophils/100 WBC (Bld) 52.3 % Normal 50.0-75.0 [facility] Comment on above: Performed By: #### F T4, CBC, VIDH, ADIFF, TSH, GFR, ANEU, FE, FERR, CMP, FT3 #### [place] [id number] [place], [place] [address] .GFRon 12-06-2024 Estimated Glomerular Filtration Rate 82 ml/min/1.73sqm Normal [facility] Comment on above: Result Comment: Stages of Chronic Kidney Disease (CKD) Stage Description eGFR(ml/min/1.73 sq.m.) CKD 1 Normal kidney function or >=90 normal kindney function with possible kidney damage (ex. Proteinuria) CKD 2 Kidney damage with mild loss 60-89 of kidney function CKD 3a Mild to moderate loss of kidney 45-59 function CKD 3b Moderate to severe loss of 30-44 of kindey function CKD 4 Severe loss of kidney function 15-29 CKD 5 Kidney failure <15 Note: (go live 2024) the eGFR calculation was updated to the 2020 CKD-EPI creatinine equation without a race factor to calculate the eGFR results. Performed By: #### F T4, CBC, VIDH, ADIFF, TSH, GFR, ANEU, FE, FERR, CMP, FT3 #### [address] [address] .NEUABSon 12-06-2024 Neutrophil, Absolute 3.0 10 3/mcL Normal 2.3-8.1 [facility] Comment on above: Performed By: #### F T4, CBC, VIDH, ADIFF, TSH, GFR, ANEU, FE, FERR, CMP, FT3 #### [id number] [place], [place] [address] A1Con 12-06-2024 Glucose [Mass/Vol] 114 mg/dL Normal [facility] Comment on above: Result Comment: Brenda mated Average Glucose calculated by equation ((28.7xA1C)-46.7) Estimated average glucose (eAG) is a calculated value from Hemoglobin A1C and is 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 Normal range: less than 114 mg/dL Performed By: #### F T4, CBC, VIDH, ADIFF, TSH, GFR, ANEU, FE, FERR, CMP, FT3 #### [address] [address] HbA1c (Bld) [Mass fraction] 5.6 % Normal 4.3-6.4 [facility] Comment on above: Performed By: #### F T4, CBC, VIDH, ADIFF, TSH, GFR, ANEU, FE, FERR, CMP, FT3 #### [address] [address] CBCon 12-06-2024 Erythrocyte distribution width (RBC) [Ratio] 13.2 % Normal 11.5-15.5 [facility] Comment on above: Performed By: #### F T4, CBC, VIDH, ADIFF, TSH, GFR, ANEU, FE, FERR, CMP, FT3 #### [place] [address] Hematocrit (Bld) [Volume fraction] 41.8 % Normal 34.0-46.0 [facility] Comment on above: Performed By: #### F T4, CBC, VIDH, ADIFF, TSH, GFR, ANEU, FE, FERR, CMP, FT3 #### [address] [address] Hgb 14.0 G/dL Normal 12.0-16.0 [facility] Comment on above: Performed By: #### F T4, CBC, VIDH, ADIFF, TSH, GFR, ANEU, FE, FERR, CMP, FT3 #### [address] [address] MCH (RBC) [Entitic mass] 30.9 pg Normal 27.0-33.0 [facility] Comment on above: Performed By: #### F T4, CBC, VIDH, ADIFF, TSH, GFR, ANEU, FE, FERR, CMP, FT3 #### [place] [id number] MCHC 33.7 G/dL Normal 32.0-36.0 [facility] Comment on above: Performed By: #### F T4, CBC, VIDH, ADIFF, TSH, GFR, ANEU, FE, FERR, CMP, FT3 #### [address] [address] MCV (RBC) [Entitic vol] 91.6 fL Normal 80.0-99.0 [facility] Comment on above: Performed By: #### F T4, CBC, VIDH, ADIFF, TSH, GFR, ANEU, FE, FERR, CMP, FT3 #### [address] [address] Platelet 172 10 3/mcL Normal 150-450 [facility] Comment on above: Performed By: #### F T4, CBC, VIDH, ADIFF, TSH, GFR, ANEU, FE, FERR, CMP, FT3 #### [address] [address] Platelet mean volume (Bld) [Entitic vol] 8.7 fL Normal 6.6-10.5 [facility] Comment on above: Performed By: #### F T4, CBC, VIDH, ADIFF, TSH, GFR, ANEU, FE, FERR, CMP, FT3 #### [address] [address] RBC 4.56 10 6/mcL Normal 4.10-5.30 [facility] Comment on above: Performed By: #### F T4, CBC, VIDH, ADIFF, TSH, GFR, ANEU, FE, FERR, CMP, FT3 #### [address] [address] WBC 5.7 10 3/mcL Normal 4.5-10.8 [facility] Comment on above: Performed By: #### F T4, CBC, VIDH, ADIFF, TSH, GFR, ANEU, FE, FERR, CMP, FT3 #### [address] [address] CMPon 12-06-2024 Albumin Level 3.3 G/dL Low 3.4-4.8 [facility] Comment on above: Performed By: #### F T4, CBC, VIDH, ADIFF, TSH, GFR, ANEU, FE, FERR, CMP, FT3 #### [place] [address] Albumin/Globulin [Mass ratio] 0.9 {ratio} Low 1.1-2.5 [facility] Comment on above: Performed By: #### F T4, CBC, VIDH, ADIFF, TSH, GFR, ANEU, FE, FERR, CMP, FT3 #### [place] [address] ALP [Catalytic activity/Vol] 107 U/L Normal 40-135 [facility] Comment on above: Performed By: #### F T4, CBC, VIDH, ADIFF, TSH, GFR, ANEU, FE, FERR, CMP, FT3 #### [place] [address] ALT [Catalytic activity/Vol] 19 U/L Normal 14-59 [facility] Comment on above: Performed By: #### F T4, CBC, VIDH, ADIFF, TSH, GFR, ANEU, FE, FERR, CMP, FT3 #### [place] [address] AST [Catalytic activity/Vol] 15 U/L Normal 10-40 [facility] Comment on above: Performed By: #### F T4, CBC, VIDH, ADIFF, TSH, GFR, ANEU, FE, FERR, CMP, FT3 #### [place] [address] Bili Total 0.6 mg/dL Normal 0.2-1.0 [facility] Comment on above: Result Comment: Use of this assay is not recommended for patients undergoing treatment with eltrombopag due to the potential for falsely elevated results. Performed By: #### F T4, CBC, VIDH, ADIFF, TSH, GFR, ANEU, FE, FERR, CMP, FT3 #### [place] [address] BUN/Creatinine Ratio 25 ratio Normal 7-27 [facility] Comment on above: Performed By: #### F T4, CBC, VIDH, ADIFF, TSH, GFR, ANEU, FE, FERR, CMP, FT3 #### [address] [address] Calcium [Mass/Vol] 8.5 mg/dL Normal 8.4-10.2 [facility] Comment on above: Performed By: #### F T4, CBC, VIDH, ADIFF, TSH, GFR, ANEU, FE, FERR, CMP, FT3 #### [address] [address] Chloride [Moles/Vol] 106 mmol/L Normal 98-107 [facility] Comment on above: Performed By: #### F T4, CBC, VIDH, ADIFF, TSH, GFR, ANEU, FE, FERR, CMP, FT3 #### [address] [address] CO2 [Moles/Vol] 31 mmol/L Normal 23-31 [facility] Comment on above: Performed By: #### F T4, CBC, VIDH, ADIFF, TSH, GFR, ANEU, FE, FERR, CMP, FT3 #### [address] [address] Creatinine [Mass/Vol] 0.75 mg/dL Normal 0.51-0.95 [facility] Comment on above: Performed By: #### F T4, CBC, VIDH, ADIFF, TSH, GFR, ANEU, FE, FERR, CMP, FT3 #### [address] [address] Electrolyte Balance 6.0 mEq/L Normal 4.0-15.0 [facility] Comment on above: Performed By: #### F T4, CBC, VIDH, ADIFF, TSH, GFR, ANEU, FE, FERR, CMP, FT3 #### [address] [address] Globulin 3.8 G/dL Normal 2.7-4.4 [facility] Comment on above: Performed By: #### F T4, CBC, VIDH, ADIFF, TSH, GFR, ANEU, FE, FERR, CMP, FT3 #### [address] [address] Glucose [Mass/Vol] 114 mg/dL High 83-110 [facility] Comment on above: Performed By: #### F T4, CBC, VIDH, ADIFF, TSH, GFR, ANEU, FE, FERR, CMP, FT3 #### [address] [address] Potassium [Moles/Vol] 4.0 mmol/L Normal 3.5-5.1 [facility] Comment on above: Performed By: #### F T4, CBC, VIDH, ADIFF, TSH, GFR, ANEU, FE, FERR, CMP, FT3 #### [address] [address] Sodium [Moles/Vol] 143 mmol/L Normal 136-145 [facility] Comment on above: Performed By: #### F T4, CBC, VIDH, ADIFF, TSH, GFR, ANEU, FE, FERR, CMP, FT3 #### [address] [address] Total Protein 7.1 G/dL Normal 6.4-8.2 [facility] Comment on above: Performed By: #### F T4, CBC, VIDH, ADIFF, TSH, GFR, ANEU, FE, FERR, CMP, FT3 #### [address] [address] Urea nitrogen [Mass/Vol] 19 mg/dL High 7-18 [facility] Comment on above: Performed By: #### F T4, CBC, VIDH, ADIFF, TSH, GFR, ANEU, FE, FERR, CMP, FT3 #### [address] [address] FT3on 12-06-2024 Free T3 [Mass/Vol] 3.05 pg/mL Normal 2.30-4.00 [facility] Comment on above: Performed By: #### F T4, CBC, VIDH, ADIFF, TSH, GFR, ANEU, FE, FERR, CMP, FT3 #### [place] [place] [address] [place], [place] [address] FT4on 12-06-2024 Free T4 [Mass/Vol] 0.96 ng/dL Normal 0.76-1.46 [facility] Comment on above: Performed By: #### F T4, CBC, VIDH, ADIFF, TSH, GFR, ANEU, FE, FERR, CMP, FT3 #### [place] [place] [id number] [place], [place] [address] LABORATORYOrdered By: SYSTEM SYSTEM on 12-06-2024 25-hydroxyvitamin D3 [Mass/Vol] 77.1 ng/mL Invalid Interpretation Code AO ADM SS Comment on above: Interpretive Data: I nterpretive Values Based on Total 25(OH) Vitamin D: Deficient <20 ng/mL Insufficient 20 - <30 ng/mL Sufficient 30-100 ng/mL Albumin BCP dye [Mass/Vol] 3.3 G/dL Low 3.4 - 4.8 G/dL AO ADM SS Albumin/Globulin [Mass ratio] 0.9 {ratio} Low 1.1 - 2.5 ratio AO ADM SS ALP [Catalytic activity/Vol] 107 U/L Normal 40 - 135 U/L AO ADM SS ALT With P-5'-P [Catalytic activity/Vol] 19 U/L Normal 14 - 59 U/L AO ADM SS AST With P-5'-P [Catalytic activity/Vol] 15 U/L Normal 10 - 40 U/L AO ADM SS Basophils (Bld) [#/Vol] 0.0 103/mcL Normal 0.0 - 0.3 10^3/mcL AO Workflow SS Basophils/100 WBC (Bld) 0.1 % Normal 0.0 - 2.5 % AO Workflow SS Bilirubin [Mass/Vol] 0.6 mg/dL Normal 0.2 - 1.0 mg/dL AO ADM SS Comment on above: Interpretive Data: U se of this assay is not recommended for patients undergoing treatment with eltrombopag due to the potential for falsely elevated results. Calcium [Mass/Vol] 8.5 mg/dL Normal 8.4 - 10. 2 mg/dL AO ADM SS Chloride [Moles/Vol] 106 mmol/L Normal 98 - 107 mmol/L AO ADM SS CO2 [Moles/Vol] 31 mmol/L Normal 23 - 31 mmol/L AO ADM SS Creatinine [Mass/Vol] 0.75 mg/dL Normal 0.51 - 0.95 mg/dL AO ADM SS Electrolyte Balance 6.0 mEq/L Normal 4.0 - 15 .0 mEq/L AO ADM SS Eosinophil, Absolute 0.5 103/mcL Normal 0.0 - 0.7 10^3/mcL AO Workflow SS Eosinophils/100 WBC (Bld) 9.2 % High 0.0 - 6.0 % AO Workflow SS Erythrocyte distribution width (RBC) [Ratio] 13.2 % Normal 11.5 - 15.5 % AO Workflow SS Estimated Glomerular Filtration Rate 82 ml/min/1.73sqm Invalid Interpretation Code AO Chemistry S Comment on above: Interpretive Data: Stages of Chronic Kidney Disease (CKD) Stage Description eGFR(ml/min/1.73 sq.m.) CKD 1 Normal kidney function or >=90 normal kindney function with possible kidney damage (ex. Proteinuria) CKD 2 Kidney damage with mild loss 60-89 of kidney function CKD 3a Mild to moderate loss of kidney 45-59 function CKD 3b Moderate to severe loss of 30-44 of kindey function CKD 4 Severe loss of kidney function 15-29 CKD 5 Kidney failure <15 Note: (go live 2024) the eGFR calculation was updated to the 2020 CKD-EPI creatinine equation without a race factor to calculate the eGFR results. Free T3 [Mass/Vol] 3.05 pg/mL Normal 2.30 - 4. 00 pg/mL AO ADM SS Free T4 [Mass/Vol] 0.96 ng/dL Normal 0.76 - 1. 46 ng/dL AO ADM SS Globulin 3.8 G/dL Normal 2.7 - 4.4 G/dL AO ADM SS HbA1c (Bld) [Mass fraction] 5.6 % Normal 4.3 - 6.4 % AO ADM SS Hematocrit (Bld) [Volume fraction] 41.8 % Normal 34.0 - 46.0 % AO Workflow SS Hemoglobin (Bld) [Mass/Vol] 14.0 G/dL Normal 12.0 - 16.0 G/dL AO Workflow SS Lymphocytes (Bld) [#/Vol] 1.7 103/mcL Normal 0.9 - 4.3 10^3/mcL AO Workflow SS Lymphocytes/100 WBC (Bld) 30.9 % Normal 20.0 - 40.0 % AO Workflow SS MCH (RBC) [Entitic mass] 30.9 pg Normal 27.0 - 33.0 pg AO Workflow SS MCHC 33.7 G/dL Normal 32.0 - 36.0 G/dL AO Workflow SS MCV (RBC) [Entitic vol] 91.6 fL Normal 80.0 - 99.0 fL AO Workflow SS Monocytes (Bld) [#/Vol] 0.4 103/mcL Normal 0.1 - 1.4 10^3/mcL AO Workflow SS Monocytes/100 WBC (Bld) 7.3 % Normal 2.0 - 13.0 % AO Workflow SS Neutrophils (Bld) [#/Vol] 3.0 103/mcL Normal 2.3 - 8.1 10^3/mcL AO Workflow SS Neutrophils/100 WBC (Bld) 52.3 % Normal 50.0 - 75.0 % AO Workflow SS Platelet mean volume (Bld) [Entitic vol] 8.7 fL Normal 6.6 - 10.5 fL AO Workflow SS Platelets (Bld) [#/Vol] 172 103/mcL Normal 150 - 450 10^3/mcL AO Workflow SS Potassium [Moles/Vol] 4.0 mmol/L Normal 3.5 - 5.1 mmol/L AO ADM SS Protein [Mass/Vol] 7.1 G/dL Normal 6.4 - 8.2 G/dL AO ADM SS RBC (Bld) [#/Vol] 4.56 106/mcL Normal 4.10 - 5.3 0 10^6/mcL AO Workflow SS Sodium [Moles/Vol] 143 mmol/L Normal 136 - 145 mmol/L AO ADM SS TSH Qn 0.61 m[IU]/L Normal 0.36 - 3.74 mcIU/mL AO ADM SS Urea nitrogen [Mass/Vol] 19 mg/dL High 7 - 18 mg/dL AO ADM SS Urea nitrogen/Creatinine [Mass ratio] 25 ratio Normal 7 - 27 ratio AO ADM SS WBC (Bld) [#/Vol] 5.7 103/mcL Normal 4.5 - 10.8 10^3/mcL AO Workflow SS LABORATORYOrdered By: Ni Moody on 12-06-2024 Cholesterol [Mass/Vol] 237 mg/dL High 0 - 200 mg/dL AO ADM SS Comment on above: Interpretive Data: C holesterol Reference Interval: Less than 200 Desirable 200-239 Borderline high risk 240 and above High risk Cholesterol in HDL [Mass/Vol] 47 mg/dL Normal 40 - 60 mg/dL AO ADM SS Cholesterol in LDL [Mass/Vol] 164 mg/dL High 0 - 130 mg/dL AO ADM SS Triglyceride [Mass/Vol] 128 mg/dL Normal 0 - 150 mg/dL AO ADM SS Comment on above: Interpretive Data: T riglyceride Reference Interval: Less than 150 Normal 150-199 Borderline high risk 200-499 High risk 500 or higher Very high risk LIPIDon 12-06-2024 Cholesterol [Mass/Vol] 237 mg/dL High 0-200 [facility] Comment on above: Result Comment: Chol esterol Reference Interval: Less than 200 Desirable 200-239 Borderline high risk 240 and above High risk Performed By: #### F T4, CBC, VIDH, ADIFF, TSH, GFR, ANEU, FE, FERR, CMP, FT3 #### [address] [address] Cholesterol in HDL [Mass/Vol] 47 mg/dL Normal 40-60 [facility] Comment on above: Performed By: #### F T4, CBC, VIDH, ADIFF, TSH, GFR, ANEU, FE, FERR, CMP, FT3 #### [address] [address] Cholesterol in LDL [Mass/Vol] 164 mg/dL High 0-130 [facility] Comment on above: Performed By: #### F T4, CBC, VIDH, ADIFF, TSH, GFR, ANEU, FE, FERR, CMP, FT3 #### [address] [address] Triglyceride [Mass/Vol] 128 mg/dL Normal 0-150 [facility] Comment on above: Result Comment: Trig lyceride Reference Interval: Less than 150 Normal 150-199 Borderline high risk 200-499 High risk 500 or higher Very high risk Performed By: #### F T4, CBC, VIDH, ADIFF, TSH, GFR, ANEU, FE, FERR, CMP, FT3 #### [address] [address] Laboratory - Chemistry and C hemistry - challengeOrdered By: SYSTEM SYSTEM on 12-06-2024 Glucose [Mass/Vol] 114 mg/dL Invalid Interpretation Code AO ADM SS Comment on above: Interpretive Data: E stimated average glucose (eAG) is a calculated value from Hemoglobin A1C and is 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 Normal range: less than 114 mg/dL TSHon 12-06-2024 TSH Qn 0.61 m[IU]/L Normal 0.36-3.74 [facility] Comment on above: Performed By: #### F T4, CBC, VIDH, ADIFF, TSH, GFR, ANEU, FE, FERR, CMP, FT3 #### [address] [place], [place] [address] VIDHon 12-06-2024 Vit. D 25-Hydroxy 77.1 ng/mL Normal [facility] Comment on above: Result Comment: Inte rpretive Values Based on Total 25(OH) Vitamin D: Deficient <20 ng/mL Insufficient 20 - <30 ng/mL Sufficient 30-100 ng/mL Performed By: #### F T4, CBC, VIDH, ADIFF, TSH, GFR, ANEU, FE, FERR, CMP, FT3 #### [address] [place], [place] [address] Basic Metabolic Profile (BMP )on 11-30-2024 BUN/CRE 24.9 RATIO High 10-20 [facility] Comment on above: Performed By: #### L 500.2500 #### [facility] [address] [place], [address] Calcium [Mass/Vol] 9.0 mg/dL Normal 7.6-11.0 [facility] Comment on above: Performed By: #### L 500.2500 #### [facility] [address] [place], [address] Chloride [Moles/Vol] 103 mmol/L Normal 98-108 [facility] Comment on above: Performed By: #### L 500.2500 #### [facility] [address] [place], [address] CO2 [Moles/Vol] 26.5 mmol/L Normal 21.0-32.0 [facility] Comment on above: Performed By: #### L 500.2500 #### [facility] [address] [place], [address] Creatinine [Mass/Vol] 0.75 mg/dL Normal 0.70-1.20 [facility] Comment on above: Performed By: #### L 500.2500 #### [facility] [address] [place], [address] GAP 11 Normal 5-15 [facility] Comment on above: Performed By: #### L 500.2500 #### [facility] [address] [place], [address] GFR/1.73 sq M.predicted among non-blacks MDRD (S/P/Bld) [Vol rate/Area] 82 mL/min/{1.73_m2} Normal >60 [facility] Comment on above: Result Comment: mL/m in/1.73m2 CKD-EPI Creatinine Equation (2020) Performed By: #### L 500.2500 #### [facility] [address] [place], [address] Glucose [Mass/Vol] 94 mg/dL Normal 70-99 [facility] Comment on above: Performed By: #### L 500.2500 #### [facility] [address] [place], [address] Potassium [Moles/Vol] 4.0 mmol/L Normal 3.3-5.1 [facility] Comment on above: Performed By: #### L 500.2500 #### [facility] [address] [place], [address] Sodium [Moles/Vol] 140 mmol/L Normal 133-145 [facility] Comment on above: Performed By: #### L 500.2500 #### [facility] [address] [place], [address] Urea nitrogen [Mass/Vol] 19 mg/dL Normal 4-19 [facility] Comment on above: Performed By: #### L 500.2500 #### [facility] [address] [place], [address] MR/Chen 11-30-2024 /MARLEY [facility] [address], [address] [place], [place] [address] OFFICE VISIT Date of Service: 11/30/24 MR#: [id number] Acct: [id number] Name: PRACHI PIERRE Rep #: [id number] : 1945 Provider: Dr. 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 Service Required: No Accompanied by: Self Is patient in pain?: No Allergies Penicillins Allergy (Verified 11/30/24 11:13) unknown tramadol Allergy (Verified 11/30/24 11:13) sleepiness Medications ???Medication ???Instructions ???Recorded ???Confirmed ???Type cetirizine 10 mg tablet 10 mg PO QDAY 11/30/24 11/30/24 Hi story cholecalciferol (vitamin D3) 50 50 mcg PO QDAY 11/30/24 11/30/24 H istory mcg (2,000 unit) capsule lactobacillus combination no.9 4 4,000 mmu cells PO QDAY 11/30/24 0 11/30/24 History billion cell capsule (Adult 50 Plus Probiotic) levothyroxine 75 mcg tablet 75 mcg PO QDAY 11/30/24 11/30/24 H istory liothyronine 5 mcg tablet 5 mcg PO QDAY 11/30/24 11/30/24 Hi story lisinopril 2.5 mg tablet 2.5 mg PO QDAY 11/30/24 11/30/24 H istory omeprazole 20 mg capsule,delayed 20 mg PO QDAY 11/30/24 11/30/24 Hi story release Have you fallen in the past year?: No Nurse's Note: blood on her pad and when she wipes with some frequency Bladder scan PVR 1cc. [facility] Medical History (Updated 12/02/24 @ 13:[address] Annmarie Mcdaniel MD) Mixed incontinence Nocturia Overactive bladder Social History Smoking Status: Never smoker HPI HPI Urology Chief Complaint: new- bleeding on pads Details: PRACHI PIERRE, is a 79 F. She is here for evaluation and management of blood with wiping. She has had this for a couple of months. It is daily. Sometimes in her pad, but every time she wipes. The toilet water is never red. She had a urologic evaluation for hematuria several years ago that was negative. She has lost 40 pounds of weight in the last year on weight loss program. She is voiding 10 times during the day, 2-3 times at night. There is urge incontinence where she cannot make it to the bathroom. There is mild stress incontinence with cough, laugh, sneeze, lifting, etc. She is using 2 pads in 24 hours. She has had no urinary tract infections in the last year. She is not sexually active. There is no sensation of vaginal bulging. Had an anterior repair 40 years ago and in 2003. She had bleeding with that and will never do that again. She is very aware of lifting. She has the following issues with chronic bowel function: constipation. There is no pelvic pain. She has no history of smoking. There is no history of blood clots or easy bleeding. There is a family history of breast cancer in the family. She is itchy all over, including vaginally. She has coldness and fatigue recently. She is working on her thyroid and changing medications etc. ROS Const Constitutional: No chills, fatigue, fever(s), headache(s), night sweats, weakness, weight change, abnormal sleep pattern or change in appetite Eyes Eyes: No change in vision ENT ENT: No headache(s) or dry mouth Resp Respiratory: No cough, chest congestion, shortness of breath or wheezing Cardio Cardiology: Positive for other (No chest pain.); No shortness of breath, irregular heart rhythm or lightheadedness Gastro GI: Positive for other (No nausea.); No abdominal pain, change in bowel habits, constipation, diarrhea or vomiting Musc Musculoskeletal: No abnormal gait Skin Skin: No yellowing of the eye, lesions, itchy eyes, rash or skin ulcer Neuro Neurology: No abnormal gait, confusion, dizziness, weakness, headache(s) or memory loss Psych Psychiatric: No abnormal sleep pattern, No change in appetite, No confusion and No memory loss Endo Endocrine: No fatigue, increased thirst/drinking or weight change Aller/Imm Allergy/Immunologic: No itchy eyes or wheezing Mario/Lymp Hematologic/Lymphatic: No easy bleeding, easy bruising or enlarged lymph nodes Exam Const General: cooperative, healthy appearing, comfortable and no acute distress HENMT Head: normocephalic and atraumatic Ears: hearing grossly normal bilaterally and external ears normal Nose: external nose normal Eyes General: appearance normal, both eyes and all related structures Neck Neck: normal visual inspection and trachea midline Chest Chest palpation inspection: normal inspection of the chest Resp Effort Inspection: normal respiratory effort, able to speak in complete sentences and symmetric chest movement Cardio Rate: regular rate GI In (more content not included)... Normal [facility] Breast imaging reportOrdered By: Loly Woodall on 11-19-2024 Study report [facility] [address] [place] [address] SCRN MAMM (CAD)W/MILAD BILAT MR#: [id number] Acct: [id number] Name: PRACHI PIERRE Rep #: [id number] : 1945 F 79 From: Lola Woodall MD PCP: Dr. Hardeep Downey DO Status: REG CLI Study:SCRN MAMM (CAD)W/MILAD BILAT Date of Exa m: 11/19/24 Exam# [id number] Ordering Dr: Hardeep Downey DO ADDENDUM by Dr. Loly Woodall MD on 11/19/24 at 1409 BI-RADS 1: NEGATIVE. RECOMMENDATION: Routine annual follow-up in 1 Year Reading Location: [id number] 11/19/24 1410 Date cc: Dr. 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 FINDINGS: TISSUE DENSITY: There are scattered areas of fibroglandular density. Bilateral Breast Mammographic Findings: No significant masses, calcifications or other abnormalities are identified. BI/SCRN MAMM (CAD)W/MILAD BILAT IMPRESSION: There is no mammographic evidence of malignancy. OVERALL FINAL ASSESSMENT BI-RADS Must pick one of these options! RECOMMENDATION: Must pick one of these options! A letter with findings and recommendations will be mailed to the patient. Reading Location: [facility] CC: Dr. Hardeep Downey DO ~ Aed Trainer: Signed [facility] SCRN MAMM (CAD)W/MILAD BILATo n 11-19-2024 SCRN MAMM (CAD)W/MILAD BILAT [facility] [address] [place] [address] SCRN MAMM (CAD)W/MILAD BILAT MR#: [id number] Acct: [id number] Name: PRACHI PIERRE Rep #: [id number] : 1945 F 79 From: Loly Woodall MD PCP: Dr. Hardeep Downey DO Status: REG CLI Study: SCRN MAMM (CAD)W/MILAD BILAT Date of Exam: 10/30 05/25 Exam# [id number] Ordering Dr: Hardeep Downey DO ADDENDUM by Dr. Loly Woodall MD on 11/19/24 at 1409 BI-RADS 1: NEGATIVE. RECOMMENDATION: Routine annual follow-up in 1 Year Reading Location: [facility] 11/19/24 1410 Date cc: Dr. 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 FINDINGS: TISSUE DENSITY: There are scattered areas of fibroglandular density. Bilateral Breast Mammographic Findings: No significant masses, calcifications or other abnormalities are identified. BI/SCRN MAMM (CAD)W/MILAD BILAT IMPRESSION: There is no mammographic evidence of malignancy. OVERALL FINAL ASSESSMENT BI-RADS Must pick one of these options! RECOMMENDATION: Must pick one of these options! A letter with findings and recommendations will be mailed to the patient. Reading Location: [facility] CC: Dr. Hardeep Downey DO Aed Trainer: Signed Normal [facility] .Auto Diffon 09-28-2024 Basophil, Absolute 0.0 10 3/mcL Normal 0.0-0.3 [facility] Comment on above: Performed By: #### F T4, CBC, VIDH, ADIFF, TSH, GFR, ANEU, FE, FERR, CMP, FT3 #### [facility] [address] [place], [place] [address] Basophils/100 WBC (Bld) 0.6 % Normal 0.0-2.5 [facility] Comment on above: Performed By: #### F T4, CBC, VIDH, ADIFF, TSH, GFR, ANEU, FE, FERR, CMP, FT3 #### [address] [address] Eosinophil, Absolute 0.4 10 3/mcL Normal 0.0-0.7 [facility] Comment on above: Performed By: #### F T4, CBC, VIDH, ADIFF, TSH, GFR, ANEU, FE, FERR, CMP, FT3 #### [address] [address] Eosinophils/100 WBC (Bld) 6.4 % High 0.0-6.0 [facility] Comment on above: Performed By: #### F T4, CBC, VIDH, ADIFF, TSH, GFR, ANEU, FE, FERR, CMP, FT3 #### [address] [address] Lymphocyte, Absolute 1.6 10 3/mcL Normal 0.9-4.3 [facility] Comment on above: Performed By: #### F T4, CBC, VIDH, ADIFF, TSH, GFR, ANEU, FE, FERR, CMP, FT3 #### [address] [address] Lymphocytes/100 WBC (Bld) 26.1 % Normal 20.0-40.0 [facility] Comment on above: Performed By: #### F T4, CBC, VIDH, ADIFF, TSH, GFR, ANEU, FE, FERR, CMP, FT3 #### [address] [address] Monocyte, Absolute 0.6 10 3/mcL Normal 0.1-1.4 [facility] Comment on above: Performed By: #### F T4, CBC, VIDH, ADIFF, TSH, GFR, ANEU, FE, FERR, CMP, FT3 #### [address] [address] Monocytes/100 WBC (Bld) 9.1 % Normal 2.0-13.0 [facility] Comment on above: Performed By: #### F T4, CBC, VIDH, ADIFF, TSH, GFR, ANEU, FE, FERR, CMP, FT3 #### [address] [address] Neutrophils/100 WBC (Bld) 57.8 % Normal 50.0-75.0 [facility] Comment on above: Performed By: #### F T4, CBC, VIDH, ADIFF, TSH, GFR, ANEU, FE, FERR, CMP, FT3 #### [address] [address] .GFRon 09-28-2024 Estimated Glomerular Filtration Rate 89 ml/min/1.73sqm Normal [facility] Comment on above: Result Comment: Stages of Chronic Kidney Disease (CKD) Stage Description eGFR(ml/min/1.73 sq.m.) CKD 1 Normal kidney function or >=90 normal kindney function with possible kidney damage (ex. Proteinuria) CKD 2 Kidney damage with mild loss 60-89 of kidney function CKD 3a Mild to moderate loss of kidney 45-59 function CKD 3b Moderate to severe loss of 30-44 of kindey function CKD 4 Severe loss of kidney function 15-29 CKD 5 Kidney failure <15 Note: (go live 2024) the eGFR calculation was updated to the 2020 CKD-EPI creatinine equation without a race factor to calculate the eGFR results. Performed By: #### F T4, CBC, VIDH, ADIFF, TSH, GFR, ANEU, FE, FERR, CMP, FT3 #### [address] [address] .NEUABSon 09-28-2024 Neutrophil, Absolute 3.5 10 3/mcL Normal 2.3-8.1 [facility] Comment on above: Performed By: #### F T4, CBC, VIDH, ADIFF, TSH, GFR, ANEU, FE, FERR, CMP, FT3 #### [address] [address] CBCon 09-28-2024 Erythrocyte distribution width (RBC) [Ratio] 14.3 % Normal 11.5-15.5 [facility] Comment on above: Performed By: #### F T4, CBC, VIDH, ADIFF, TSH, GFR, ANEU, FE, FERR, CMP, FT3 #### [place] [address] Hematocrit (Bld) [Volume fraction] 39.3 % Normal 34.0-46.0 [facility] Comment on above: Performed By: #### F T4, CBC, VIDH, ADIFF, TSH, GFR, ANEU, FE, FERR, CMP, FT3 #### [place] [address] Hgb 13.0 G/dL Normal 12.0-16.0 [facility] Comment on above: Performed By: #### F T4, CBC, VIDH, ADIFF, TSH, GFR, ANEU, FE, FERR, CMP, FT3 #### [place] [address] MCH (RBC) [Entitic mass] 31.0 pg Normal 27.0-33.0 [facility] Comment on above: Performed By: #### F T4, CBC, VIDH, ADIFF, TSH, GFR, ANEU, FE, FERR, CMP, FT3 #### [place] [address] MCHC 33.1 G/dL Normal 32.0-36.0 [facility] Comment on above: Performed By: #### F T4, CBC, VIDH, ADIFF, TSH, GFR, ANEU, FE, FERR, CMP, FT3 #### [address] [address] MCV (RBC) [Entitic vol] 93.8 fL Normal 80.0-99.0 [facility] Comment on above: Performed By: #### F T4, CBC, VIDH, ADIFF, TSH, GFR, ANEU, FE, FERR, CMP, FT3 #### [place] [address] Platelet 152 10 3/mcL Normal 150-450 [facility] Comment on above: Performed By: #### F T4, CBC, VIDH, ADIFF, TSH, GFR, ANEU, FE, FERR, CMP, FT3 #### [place] [address] Platelet mean volume (Bld) [Entitic vol] 8.8 fL Normal 6.6-10.5 [facility] Comment on above: Performed By: #### F T4, CBC, VIDH, ADIFF, TSH, GFR, ANEU, FE, FERR, CMP, FT3 #### [address] [address] RBC 4.19 10 6/mcL Normal 4.10-5.30 [facility] Comment on above: Performed By: #### F T4, CBC, VIDH, ADIFF, TSH, GFR, ANEU, FE, FERR, CMP, FT3 #### [address] [address] WBC 6.1 10 3/mcL Normal 4.5-10.8 [facility] Comment on above: Performed By: #### F T4, CBC, VIDH, ADIFF, TSH, GFR, ANEU, FE, FERR, CMP, FT3 #### [address] [address] CMPon 09-28-2024 Albumin Level 3.1 G/dL Low 3.4-4.8 [facility] Comment on above: Performed By: #### F T4, CBC, VIDH, ADIFF, TSH, GFR, ANEU, FE, FERR, CMP, FT3 #### [address] [address] Albumin/Globulin [Mass ratio] 0.8 {ratio} Low 1.1-2.5 [facility] Comment on above: Performed By: #### F T4, CBC, VIDH, ADIFF, TSH, GFR, ANEU, FE, FERR, CMP, FT3 #### [address] [address] ALP [Catalytic activity/Vol] 109 U/L Normal 40-135 [facility] Comment on above: Performed By: #### F T4, CBC, VIDH, ADIFF, TSH, GFR, ANEU, FE, FERR, CMP, FT3 #### [address] [address] ALT [Catalytic activity/Vol] 28 U/L Normal 14-59 [facility] Comment on above: Performed By: #### F T4, CBC, VIDH, ADIFF, TSH, GFR, ANEU, FE, FERR, CMP, FT3 #### [address] [address] AST [Catalytic activity/Vol] 21 U/L Normal 10-40 [facility] Comment on above: Performed By: #### F T4, CBC, VIDH, ADIFF, TSH, GFR, ANEU, FE, FERR, CMP, FT3 #### [address] [address] Bili Total 0.5 mg/dL Normal 0.2-1.0 [facility] Comment on above: Result Comment: Use of this assay is not recommended for patients undergoing treatment with eltrombopag due to the potential for falsely elevated results. Performed By: #### F T4, CBC, VIDH, ADIFF, TSH, GFR, ANEU, FE, FERR, CMP, FT3 #### [address] [address] BUN/Creatinine Ratio 29 ratio High 7-27 [facility] Comment on above: Performed By: #### F T4, CBC, VIDH, ADIFF, TSH, GFR, ANEU, FE, FERR, CMP, FT3 #### [address] [address] Calcium [Mass/Vol] 8.6 mg/dL Normal 8.4-10.2 [facility] Comment on above: Performed By: #### F T4, CBC, VIDH, ADIFF, TSH, GFR, ANEU, FE, FERR, CMP, FT3 #### [address] [address] Chloride [Moles/Vol] 107 mmol/L Normal 98-107 [facility] Comment on above: Performed By: #### F T4, CBC, VIDH, ADIFF, TSH, GFR, ANEU, FE, FERR, CMP, FT3 #### [address] [address] CO2 [Moles/Vol] 30 mmol/L Normal 23-31 [facility] Comment on above: Performed By: #### F T4, CBC, VIDH, ADIFF, TSH, GFR, ANEU, FE, FERR, CMP, FT3 #### [address] [address] Creatinine [Mass/Vol] 0.70 mg/dL Normal 0.51-0.95 [facility] Comment on above: Performed By: #### F T4, CBC, VIDH, ADIFF, TSH, GFR, ANEU, FE, FERR, CMP, FT3 #### [address] [address] Electrolyte Balance 5.0 mEq/L Normal 4.0-15.0 [facility] Comment on above: Performed By: #### F T4, CBC, VIDH, ADIFF, TSH, GFR, ANEU, FE, FERR, CMP, FT3 #### [address] [address] Globulin 4.0 G/dL Normal 2.7-4.4 [facility] Comment on above: Performed By: #### F T4, CBC, VIDH, ADIFF, TSH, GFR, ANEU, FE, FERR, CMP, FT3 #### [address] [address] Glucose [Mass/Vol] 92 mg/dL Normal 83-110 [facility] Comment on above: Performed By: #### F T4, CBC, VIDH, ADIFF, TSH, GFR, ANEU, FE, FERR, CMP, FT3 #### [address] [address] Potassium [Moles/Vol] 4.1 mmol/L Normal 3.5-5.1 [facility] Comment on above: Performed By: #### F T4, CBC, VIDH, ADIFF, TSH, GFR, ANEU, FE, FERR, CMP, FT3 #### [address] [address] Sodium [Moles/Vol] 142 mmol/L Normal 136-145 [facility] Comment on above: Performed By: #### F T4, CBC, VIDH, ADIFF, TSH, GFR, ANEU, FE, FERR, CMP, FT3 #### [address] [address] Total Protein 7.1 G/dL Normal 6.4-8.2 [facility] Comment on above: Performed By: #### F T4, CBC, VIDH, ADIFF, TSH, GFR, ANEU, FE, FERR, CMP, FT3 #### [address] [address] Urea nitrogen [Mass/Vol] 20 mg/dL High 7-18 [facility] Comment on above: Performed By: #### F T4, CBC, VIDH, ADIFF, TSH, GFR, ANEU, FE, FERR, CMP, FT3 #### [address] [address] FEon 09-28-2024 Iron [Mass/Vol] 64 ug/dL Normal 50-170 [facility] Comment on above: Performed By: #### F T4, CBC, VIDH, ADIFF, TSH, GFR, ANEU, FE, FERR, CMP, FT3 #### [address] [address] Tru 09-28-2024 Ferritin [Mass/Vol] 208.0 ng/mL Normal 8.0-252.0 [facility] Comment on above: Performed By: #### F T4, CBC, VIDH, ADIFF, TSH, GFR, ANEU, FE, FERR, CMP, FT3 #### [address] [address] FT3on 09-28-2024 Free T3 [Mass/Vol] 3.09 pg/mL Normal 2.30-4.00 [facility] Comment on above: Performed By: #### F T4, CBC, VIDH, ADIFF, TSH, GFR, ANEU, FE, FERR, CMP, FT3 #### [address] [address] FT4on 09-28-2024 Free T4 [Mass/Vol] 0.87 ng/dL Normal 0.76-1.46 [facility] Comment on above: Performed By: #### F T4, CBC, VIDH, ADIFF, TSH, GFR, ANEU, FE, FERR, CMP, FT3 #### [place] [address] [place], [place] [address] LABORATORYOrdered By: SYSTEM SYSTEM on 09-28-2024 25-hydroxyvitamin D3 [Mass/Vol] 89.6 ng/mL Invalid Interpretation Code AO ADM SS Comment on above: Interpretive Data: I nterpretive Values Based on Total 25(OH) Vitamin D: Deficient <20 ng/mL Insufficient 20 - <30 ng/mL Sufficient 30-100 ng/mL Albumin BCP dye [Mass/Vol] 3.1 G/dL Low 3.4 - 4.8 G/dL AO ADM SS Albumin/Globulin [Mass ratio] 0.8 {ratio} Low 1.1 - 2.5 ratio AO ADM SS ALP [Catalytic activity/Vol] 109 U/L Normal 40 - 135 U/L AO ADM SS ALT With P-5'-P [Catalytic activity/Vol] 28 U/L Normal 14 - 59 U/L AO ADM SS AST With P-5'-P [Catalytic activity/Vol] 21 U/L Normal 10 - 40 U/L AO ADM SS Basophils (Bld) [#/Vol] 0.0 103/mcL Normal 0.0 - 0.3 10^3/mcL AO Workflow SS Basophils/100 WBC (Bld) 0.6 % Normal 0.0 - 2.5 % AO Workflow SS Bilirubin [Mass/Vol] 0.5 mg/dL Normal 0.2 - 1.0 mg/dL AO ADM SS Comment on above: Interpretive Data: U se of this assay is not recommended for patients undergoing treatment with eltrombopag due to the potential for falsely elevated results. Calcium [Mass/Vol] 8.6 mg/dL Normal 8.4 - 10. 2 mg/dL AO ADM SS Chloride [Moles/Vol] 107 mmol/L Normal 98 - 107 mmol/L AO ADM SS CO2 [Moles/Vol] 30 mmol/L Normal 23 - 31 mmol/L AO ADM SS Creatinine [Mass/Vol] 0.70 mg/dL Normal 0.51 - 0.95 mg/dL AO ADM SS Electrolyte Balance 5.0 mEq/L Normal 4.0 - 15 .0 mEq/L AO ADM SS Eosinophil, Absolute 0.4 103/mcL Normal 0.0 - 0.7 10^3/mcL AO Workflow SS Eosinophils/100 WBC (Bld) 6.4 % High 0.0 - 6.0 % AO Workflow SS Erythrocyte distribution width (RBC) [Ratio] 14.3 % Normal 11.5 - 15.5 % AO Workflow SS Estimated Glomerular Filtration Rate 89 ml/min/1.73sqm Invalid Interpretation Code AO Chemistry S Comment on above: Interpretive Data: Stages of Chronic Kidney Disease (CKD) Stage Description eGFR(ml/min/1.73 sq.m.) CKD 1 Normal kidney function or >=90 normal kindney function with possible kidney damage (ex. Proteinuria) CKD 2 Kidney damage with mild loss 60-89 of kidney function CKD 3a Mild to moderate loss of kidney 45-59 function CKD 3b Moderate to severe loss of 30-44 of kindey function CKD 4 Severe loss of kidney function 15-29 CKD 5 Kidney failure <15 Note: (go live 2024) the eGFR calculation was updated to the 2020 CKD-EPI creatinine equation without a race factor to calculate the eGFR results. Ferritin [Mass/Vol] 208.0 ng/mL Normal 8.0 - 25 2.0 ng/mL AO ADM SS Free T3 [Mass/Vol] 3.09 pg/mL Normal 2.30 - 4. 00 pg/mL AO ADM SS Free T4 [Mass/Vol] 0.87 ng/dL Normal 0.76 - 1. 46 ng/dL AO ADM SS Globulin 4.0 G/dL Normal 2.7 - 4.4 G/dL AO ADM SS Glucose [Mass/Vol] 92 mg/dL Normal 83 - 110 mg/dL AO ADM SS Hematocrit (Bld) [Volume fraction] 39.3 % Normal 34.0 - 46.0 % AO Workflow SS Hemoglobin (Bld) [Mass/Vol] 13.0 G/dL Normal 12.0 - 16.0 G/dL AO Workflow SS Iron [Mass/Vol] 64 ug/dL Normal 50 - 170 mcg/dL AO ADM SS Lymphocytes (Bld) [#/Vol] 1.6 103/mcL Normal 0.9 - 4.3 10^3/mcL AO Workflow SS Lymphocytes/100 WBC (Bld) 26.1 % Normal 20.0 - 40.0 % AO Workflow SS MCH (RBC) [Entitic mass] 31.0 pg Normal 27.0 - 33.0 pg AO Workflow SS MCHC 33.1 G/dL Normal 32.0 - 36.0 G/dL AO Workflow SS MCV (RBC) [Entitic vol] 93.8 fL Normal 80.0 - 99.0 fL AO Workflow SS Monocytes (Bld) [#/Vol] 0.6 103/mcL Normal 0.1 - 1.4 10^3/mcL AO Workflow SS Monocytes/100 WBC (Bld) 9.1 % Normal 2.0 - 13.0 % AO Workflow SS Neutrophils (Bld) [#/Vol] 3.5 103/mcL Normal 2.3 - 8.1 10^3/mcL AO Workflow SS Neutrophils/100 WBC (Bld) 57.8 % Normal 50.0 - 75.0 % AO Workflow SS Platelet mean volume (Bld) [Entitic vol] 8.8 fL Normal 6.6 - 10.5 fL AO Workflow SS Platelets (Bld) [#/Vol] 152 103/mcL Normal 150 - 450 10^3/mcL AO Workflow SS Potassium [Moles/Vol] 4.1 mmol/L Normal 3.5 - 5.1 mmol/L AO ADM SS Protein [Mass/Vol] 7.1 G/dL Normal 6.4 - 8.2 G/dL AO ADM SS RBC (Bld) [#/Vol] 4.19 106/mcL Normal 4.10 - 5.3 0 10^6/mcL AO Workflow SS Sodium [Moles/Vol] 142 mmol/L Normal 136 - 145 mmol/L AO ADM SS TSH Qn 0.37 m[IU]/L Normal 0.36 - 3.74 mcIU/mL AO ADM SS Urea nitrogen [Mass/Vol] 20 mg/dL High 7 - 18 mg/dL AO ADM SS Urea nitrogen/Creatinine [Mass ratio] 29 ratio High 7 - 27 ratio AO ADM SS WBC (Bld) [#/Vol] 6.1 103/mcL Normal 4.5 - 10.8 10^3/mcL AO Workflow SS No Panel Informationon 09-28 Culture Urine No growth at 48 hours. [facility] Work Phone: TSHon 09-28-2024 TSH Qn 0.37 m[IU]/L Normal 0.36-3.74 [facility] Comment on above: Performed By: #### F T4, CBC, VIDH, ADIFF, TSH, GFR, ANEU, FE, FERR, CMP, FT3 #### [address] [address] VIDHon 09-28-2024 Vit. D 25-Hydroxy 89.6 ng/mL Normal [facility] Comment on above: Result Comment: Inte rpretive Values Based on Total 25(OH) Vitamin D: Deficient <20 ng/mL Insufficient 20 - <30 ng/mL Sufficient 30-100 ng/mL Performed By: #### F T4, CBC, VIDH, ADIFF, TSH, GFR, ANEU, FE, FERR, CMP, FT3 #### [address] [address] .Auto Diffon 06-08-2024 Basophil, Absolute 0.0 10 3/mcL Normal 0.0-0.2 [facility] Comment on above: Performed By: #### F T4, CBC, VIDH, ADIFF, TSH, GFR, ANEU, FE, FERR, CMP, FT3 #### [address] [address] Basophils/100 WBC (Bld) 0.5 % Normal 0.0-2.5 [facility] Comment on above: Performed By: #### F T4, CBC, VIDH, ADIFF, TSH, GFR, ANEU, FE, FERR, CMP, FT3 #### [address] [address] Eosinophil, Absolute 0.1 10 3/mcL Normal 0.0-0.7 [facility] Comment on above: Performed By: #### F T4, CBC, VIDH, ADIFF, TSH, GFR, ANEU, FE, FERR, CMP, FT3 #### [address] [address] Eosinophils/100 WBC (Bld) 2.8 % Normal 0.0-7.0 [facility] Comment on above: Performed By: #### F T4, CBC, VIDH, ADIFF, TSH, GFR, ANEU, FE, FERR, CMP, FT3 #### [address] [address] Lymphocyte, Absolute 1.8 10 3/mcL Normal 0.9-4.3 [facility] Comment on above: Performed By: #### F T4, CBC, VIDH, ADIFF, TSH, GFR, ANEU, FE, FERR, CMP, FT3 #### [address] [address] Lymphocytes/100 WBC (Bld) 33.3 % Normal 20.0-40.0 [facility] Comment on above: Performed By: #### F T4, CBC, VIDH, ADIFF, TSH, GFR, ANEU, FE, FERR, CMP, FT3 #### [address] [address] Monocyte, Absolute 0.4 10 3/mcL Normal 0.1-1.4 [facility] Comment on above: Performed By: #### F T4, CBC, VIDH, ADIFF, TSH, GFR, ANEU, FE, FERR, CMP, FT3 #### [address] [address] Monocytes/100 WBC (Bld) 7.1 % Normal 2.0-13.0 [facility] Comment on above: Performed By: #### F T4, CBC, VIDH, ADIFF, TSH, GFR, ANEU, FE, FERR, CMP, FT3 #### [address] [address] Neutrophils/100 WBC (Bld) 56.3 % Normal 50.0-75.0 [facility] Comment on above: Performed By: #### F T4, CBC, VIDH, ADIFF, TSH, GFR, ANEU, FE, FERR, CMP, FT3 #### [address] [address] .GFRon 06-08-2024 Estimated Glomerular Filtration Rate 70 ml/min/1.73sqm Normal [facility] Comment on above: Result Comment: Stages of Chronic Kidney Disease (CKD) Stage Description eGFR(ml/min/1.73 sq.m.) CKD 1 Normal kidney function or >=90 normal kindney function with possible kidney damage (ex. Proteinuria) CKD 2 Kidney damage with mild loss 60-89 of kidney function CKD 3a Mild to moderate loss of kidney 45-59 function CKD 3b Moderate to severe loss of 30-44 of kindey function CKD 4 Severe loss of kidney function 15-29 CKD 5 Kidney failure <15 Note: (go live 2024) the eGFR calculation was updated to the 2020 CKD-EPI creatinine equation without a race factor to calculate the eGFR results. Performed By: #### F T4, CBC, VIDH, ADIFF, TSH, GFR, ANEU, FE, FERR, CMP, FT3 #### [address] [address] .NEUABSon 06-08-2024 Neutrophil, Absolute 3.0 10 3/mcL Normal 2.3-8.1 [facility] Comment on above: Performed By: #### F T4, CBC, VIDH, ADIFF, TSH, GFR, ANEU, FE, FERR, CMP, FT3 #### [address] [address] A1Con 06-08-2024 Glucose [Mass/Vol] 117 mg/dL Normal [facility] Comment on above: Result Comment: Brenda mated Average Glucose calculated by equation ((28.7xA1C)-46.7) Estimated average glucose (eAG) is a calculated value from Hemoglobin A1C and is 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 Normal range: less than 114 mg/dL Performed By: #### F T4, CBC, VIDH, ADIFF, TSH, GFR, ANEU, FE, FERR, CMP, FT3 #### [address] [address] HbA1c (Bld) [Mass fraction] 5.7 % Normal 4.3-6.4 [facility] Comment on above: Performed By: #### F T4, CBC, VIDH, ADIFF, TSH, GFR, ANEU, FE, FERR, CMP, FT3 #### [address] [address] CBCon 06-08-2024 Erythrocyte distribution width (RBC) [Ratio] 14.3 % Normal 11.5-15.5 [facility] Comment on above: Performed By: #### F T4, CBC, VIDH, ADIFF, TSH, GFR, ANEU, FE, FERR, CMP, FT3 #### [place] [address] Hematocrit (Bld) [Volume fraction] 40.2 % Normal 34.0-46.0 [facility] Comment on above: Performed By: #### F T4, CBC, VIDH, ADIFF, TSH, GFR, ANEU, FE, FERR, CMP, FT3 #### [place] [address] Hgb 13.5 G/dL Normal 12.0-16.0 [facility] Comment on above: Performed By: #### F T4, CBC, VIDH, ADIFF, TSH, GFR, ANEU, FE, FERR, CMP, FT3 #### [place] [address] MCH (RBC) [Entitic mass] 31.2 pg Normal 27.0-33.0 [facility] Comment on above: Performed By: #### F T4, CBC, VIDH, ADIFF, TSH, GFR, ANEU, FE, FERR, CMP, FT3 #### [place] [address] MCHC 33.6 G/dL Normal 32.0-36.0 [facility] Comment on above: Performed By: #### F T4, CBC, VIDH, ADIFF, TSH, GFR, ANEU, FE, FERR, CMP, FT3 #### [place] [address] MCV (RBC) [Entitic vol] 92.9 fL Normal 80.0-99.0 [facility] Comment on above: Performed By: #### F T4, CBC, VIDH, ADIFF, TSH, GFR, ANEU, FE, FERR, CMP, FT3 #### [place] [address] Platelet 144 10 3/mcL Low 150-450 [facility] Comment on above: Performed By: #### F T4, CBC, VIDH, ADIFF, TSH, GFR, ANEU, FE, FERR, CMP, FT3 #### [address] [address] Platelet mean volume (Bld) [Entitic vol] 9.0 fL Normal 6.6-10.5 [facility] Comment on above: Performed By: #### F T4, CBC, VIDH, ADIFF, TSH, GFR, ANEU, FE, FERR, CMP, FT3 #### [address] [address] RBC 4.33 10 6/mcL Normal 4.10-5.30 [facility] Comment on above: Performed By: #### F T4, CBC, VIDH, ADIFF, TSH, GFR, ANEU, FE, FERR, CMP, FT3 #### [address] [address] WBC 5.4 10 3/mcL Normal 4.5-10.8 [facility] Comment on above: Performed By: #### F T4, CBC, VIDH, ADIFF, TSH, GFR, ANEU, FE, FERR, CMP, FT3 #### [address] [address] CMPon 06-08-2024 Albumin Level 3.5 G/dL Normal 3.4-4.8 [facility] Comment on above: Performed By: #### F T4, CBC, VIDH, ADIFF, TSH, GFR, ANEU, FE, FERR, CMP, FT3 #### [address] [address] Albumin/Globulin [Mass ratio] 0.9 {ratio} Low 1.1-2.5 [facility] Comment on above: Performed By: #### F T4, CBC, VIDH, ADIFF, TSH, GFR, ANEU, FE, FERR, CMP, FT3 #### [address] [address] ALP [Catalytic activity/Vol] 114 U/L Normal 40-135 [facility] Comment on above: Performed By: #### F T4, CBC, VIDH, ADIFF, TSH, GFR, ANEU, FE, FERR, CMP, FT3 #### [address] [address] ALT [Catalytic activity/Vol] 19 U/L Normal 14-59 [facility] Comment on above: Performed By: #### F T4, CBC, VIDH, ADIFF, TSH, GFR, ANEU, FE, FERR, CMP, FT3 #### [address] [address] AST [Catalytic activity/Vol] 14 U/L Normal 10-40 [facility] Comment on above: Performed By: #### F T4, CBC, VIDH, ADIFF, TSH, GFR, ANEU, FE, FERR, CMP, FT3 #### [address] [address] Bili Total 0.8 mg/dL Normal 0.2-1.0 [facility] Comment on above: Result Comment: Use of this assay is not recommended for patients undergoing treatment with eltrombopag due to the potential for falsely elevated results. Performed By: #### F T4, CBC, VIDH, ADIFF, TSH, GFR, ANEU, FE, FERR, CMP, FT3 #### [address] [address] BUN/Creatinine Ratio 24 ratio Normal 7-27 [facility] Comment on above: Performed By: #### F T4, CBC, VIDH, ADIFF, TSH, GFR, ANEU, FE, FERR, CMP, FT3 #### [address] [address] Calcium [Mass/Vol] 9.0 mg/dL Normal 8.4-10.2 [facility] Comment on above: Performed By: #### F T4, CBC, VIDH, ADIFF, TSH, GFR, ANEU, FE, FERR, CMP, FT3 #### [address] [address] Chloride [Moles/Vol] 103 mmol/L Normal 98-107 [facility] Comment on above: Performed By: #### F T4, CBC, VIDH, ADIFF, TSH, GFR, ANEU, FE, FERR, CMP, FT3 #### [address] [address] CO2 [Moles/Vol] 29 mmol/L Normal 23-31 [facility] Comment on above: Performed By: #### F T4, CBC, VIDH, ADIFF, TSH, GFR, ANEU, FE, FERR, CMP, FT3 #### [address] [address] Creatinine [Mass/Vol] 0.86 mg/dL Normal 0.55-1.02 [facility] Comment on above: Result Comment: Test ing performed on Pixable Dimension EXL analyzer using a modified kinetic Gregoria technique. Performed By: #### F T4, CBC, VIDH, ADIFF, TSH, GFR, ANEU, FE, FERR, CMP, FT3 #### [address] [address] Electrolyte Balance 6.0 mEq/L Normal 4.0-15.0 [facility] Comment on above: Performed By: #### F T4, CBC, VIDH, ADIFF, TSH, GFR, ANEU, FE, FERR, CMP, FT3 #### [address] [address] Globulin 3.7 G/dL Normal 1.5-3.8 [facility] Comment on above: Performed By: #### F T4, CBC, VIDH, ADIFF, TSH, GFR, ANEU, FE, FERR, CMP, FT3 #### [address] [address] Glucose [Mass/Vol] 89 mg/dL Normal 83-110 [facility] Comment on above: Performed By: #### F T4, CBC, VIDH, ADIFF, TSH, GFR, ANEU, FE, FERR, CMP, FT3 #### [address] [address] Potassium [Moles/Vol] 3.7 mmol/L Normal 3.5-5.1 [facility] Comment on above: Performed By: #### F T4, CBC, VIDH, ADIFF, TSH, GFR, ANEU, FE, FERR, CMP, FT3 #### [address] [address] Sodium [Moles/Vol] 138 mmol/L Normal 136-145 [facility] Comment on above: Performed By: #### F T4, CBC, VIDH, ADIFF, TSH, GFR, ANEU, FE, FERR, CMP, FT3 #### [address] [address] Total Protein 7.2 G/dL Normal 6.4-8.2 [facility] Comment on above: Performed By: #### F T4, CBC, VIDH, ADIFF, TSH, GFR, ANEU, FE, FERR, CMP, FT3 #### [address] [address] Urea nitrogen [Mass/Vol] 21 mg/dL High 7-18 [facility] Comment on above: Performed By: #### F T4, CBC, VIDH, ADIFF, TSH, GFR, ANEU, FE, FERR, CMP, FT3 #### [address] [address] LIPIDon 06-08-2024 Cholesterol [Mass/Vol] 175 mg/dL Normal 0-200 [facility] Comment on above: Result Comment: Chol esterol Reference Interval: Less than 200 Desirable 200-239 Borderline high risk 240 and above High risk Performed By: #### F T4, CBC, VIDH, ADIFF, TSH, GFR, ANEU, FE, FERR, CMP, FT3 #### [address] [address] Cholesterol in HDL [Mass/Vol] 50 mg/dL Normal 40-60 [facility] Comment on above: Performed By: #### F T4, CBC, VIDH, ADIFF, TSH, GFR, ANEU, FE, FERR, CMP, FT3 #### [address] [address] Cholesterol in LDL [Mass/Vol] 106 mg/dL Normal 0-130 [facility] Comment on above: Performed By: #### F T4, CBC, VIDH, ADIFF, TSH, GFR, ANEU, FE, FERR, CMP, FT3 #### [address] [address] Triglyceride [Mass/Vol] 94 mg/dL Normal 0-150 [facility] Comment on above: Result Comment: Trig lyceride Reference Interval: Less than 150 Normal 150-199 Borderline high risk 200-499 High risk 500 or higher Very high risk Performed By: #### F T4, CBC, VIDH, ADIFF, TSH, GFR, ANEU, FE, FERR, CMP, FT3 #### [place] [address] TSHon 06-08-2024 TSH Qn 0.57 m[IU]/L Normal 0.36-3.74 [facility] Comment on above: Performed By: #### F T4, CBC, VIDH, ADIFF, TSH, GFR, ANEU, FE, FERR, CMP, FT3 #### [address] [address] VIDHon 06-08-2024 Vit. D 25-Hydroxy 87.4 ng/mL Normal [facility] Comment on above: Result Comment: Inte rpretive Values Based on Total 25(OH) Vitamin D: Deficient <20 ng/mL Insufficient 20 - <30 ng/mL Sufficient 30-100 ng/mL Performed By: #### F T4, CBC, VIDH, ADIFF, TSH, GFR, ANEU, FE, FERR, CMP, FT3 #### [address] [address] LABORATORYOrdered By: Ni Moody on 12-16-2023 Albumin DL <= 20 mg/L (U) [Mass/Vol] mcg/dL Invalid Interpretation Code AO Chemistry S Albumin/Creatinine DL <= 20 mg/L (U) [Mass ratio] unable to calc Invalid Interpretation Code 0 - 30 AO Chemistry S Creatinine (U) [Mass/Vol] 27.1 mg/dL Low 28.0 - 117.0 mg/dL AO ADM SS MALBRon 12-16-2023 U Creatinine 27.1 mg/dL Low 28.0-117.0 [facility] Comment on above: Performed By: #### F T4, CBC, VIDH, ADIFF, TSH, GFR, ANEU, FE, FERR, CMP, FT3 #### [address] [address] U Microalb <130 Normal [facility] Comment on above: Performed By: #### F T4, CBC, VIDH, ADIFF, TSH, GFR, ANEU, FE, FERR, CMP, FT3 #### [address] [address] U Ratio Alb/Cre unable to calc Normal 0-30 [facility] Comment on above: Performed By: #### F T4, CBC, VIDH, ADIFF, TSH, GFR, ANEU, FE, FERR, CMP, FT3 #### [address] [address] .Auto Diffon 12-09-2023 Basophil, Absolute 0.0 10 3/mcL Normal 0.0-0.2 [facility] Comment on above: Performed By: #### F T4, CBC, VIDH, ADIFF, TSH, GFR, ANEU, FE, FERR, CMP, FT3 #### [address] [address] Basophils/100 WBC (Bld) 0.5 % Normal 0.0-2.5 [facility] Comment on above: Performed By: #### F T4, CBC, VIDH, ADIFF, TSH, GFR, ANEU, FE, FERR, CMP, FT3 #### [address] [address] Eosinophil, Absolute 0.4 10 3/mcL Normal 0.0-0.4 [facility] Comment on above: Performed By: #### F T4, CBC, VIDH, ADIFF, TSH, GFR, ANEU, FE, FERR, CMP, FT3 #### [address] [address] Eosinophils/100 WBC (Bld) 5.9 % Normal 0.0-7.0 [facility] Comment on above: Performed By: #### F T4, CBC, VIDH, ADIFF, TSH, GFR, ANEU, FE, FERR, CMP, FT3 #### [address] [address] Lymphocyte, Absolute 1.9 10 3/mcL Normal 0.8-3.9 [facility] Comment on above: Performed By: #### F T4, CBC, VIDH, ADIFF, TSH, GFR, ANEU, FE, FERR, CMP, FT3 #### [address] [address] Lymphocytes/100 WBC (Bld) 32.7 % Normal 10.0-50.0 [facility] Comment on above: Performed By: #### F T4, CBC, VIDH, ADIFF, TSH, GFR, ANEU, FE, FERR, CMP, FT3 #### [address] [address] Monocyte, Absolute 0.5 10 3/mcL Normal 0.2-1.0 [facility] Comment on above: Performed By: #### F T4, CBC, VIDH, ADIFF, TSH, GFR, ANEU, FE, FERR, CMP, FT3 #### [address] [address] Monocytes/100 WBC (Bld) 8.2 % Normal 1.7-13.0 [facility] Comment on above: Performed By: #### F T4, CBC, VIDH, ADIFF, TSH, GFR, ANEU, FE, FERR, CMP, FT3 #### [address] [address] Neutrophils/100 WBC (Bld) 52.7 % Normal 37.0-80.0 [facility] Comment on above: Performed By: #### F T4, CBC, VIDH, ADIFF, TSH, GFR, ANEU, FE, FERR, CMP, FT3 #### [address] [address] .GFRon 12-09-2023 GFR Non- 60 ml/min/1.73sqm Normal [facility] Comment on above: Result Comment: GFR Population mean for , Non- Americans Ages 20-29 = 116 mL/min/1.73 sq.m. Ages 30-39 = 107 mL/min/1.73 sq.m. Ages 40-49 = 99 mL/min/1.73 sq.m. Ages 50-59 = 93 mL/min/1.73 sq.m. Ages 60-69 = 85 mL/min/1.73 sq.m. Ages 70+ = 75 mL/min/1.73 sq.m. Chronic Kidney Disease: Less than 60 mL/min/1.73 square meters End Stage Renal Disease: Less than 15 mL/min/1.73 square meters Performed By: #### F T4, CBC, VIDH, ADIFF, TSH, GFR, ANEU, FE, FERR, CMP, FT3 #### [address] [address] GFR 73 ml/min/1.73sqm [facility] Comment on above: Result Comment: GFR Population mean for , Non- Americans Ages 20-29 = 116 mL/min/1.73 sq.m. Ages 30-39 = 107 mL/min/1.73 sq.m. Ages 40-49 = 99 mL/min/1.73 sq.m. Ages 50-59 = 93 mL/min/1.73 sq.m. Ages 60-69 = 85 mL/min/1.73 sq.m. Ages 70+ = 75 mL/min/1.73 sq.m. Chronic Kidney Disease: Less than 60 mL/min/1.73 square meters End Stage Renal Disease: Less than 15 mL/min/1.73 square meters Performed By: #### F T4, CBC, VIDH, ADIFF, TSH, GFR, ANEU, FE, FERR, CMP, FT3 #### [address] [address] .NEUABSon 12-09-2023 Neutrophil, Absolute 3.1 10 3/mcL Normal 2.9-6.2 [facility] Comment on above: Performed By: #### F T4, CBC, VIDH, ADIFF, TSH, GFR, ANEU, FE, FERR, CMP, FT3 #### [address] [address] A1Con 12-09-2023 Glucose [Mass/Vol] 128 mg/dL Normal [facility] Comment on above: Result Comment: Brenda mated Average Glucose calculated by equation ((28.7xA1C)-46.7) Estimated average glucose (eAG) is a calculated value from Hemoglobin A1C and is 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 Normal range: less than 114 mg/dL Performed By: #### F T4, CBC, VIDH, ADIFF, TSH, GFR, ANEU, FE, FERR, CMP, FT3 #### [place] [address] HbA1c (Bld) [Mass fraction] 6.1 % Normal 4.3-6.4 [facility] Comment on above: Performed By: #### F T4, CBC, VIDH, ADIFF, TSH, GFR, ANEU, FE, FERR, CMP, FT3 #### [address] [address] CBCon 12-09-2023 Erythrocyte distribution width (RBC) [Ratio] 14.0 % Normal 11.5-14.5 [facility] Comment on above: Performed By: #### F T4, CBC, VIDH, ADIFF, TSH, GFR, ANEU, FE, FERR, CMP, FT3 #### [place] [address] Hematocrit (Bld) [Volume fraction] 39.8 % Normal 37.0-47.0 [facility] Comment on above: Performed By: #### F T4, CBC, VIDH, ADIFF, TSH, GFR, ANEU, FE, FERR, CMP, FT3 #### [place] [address] Hgb 13.4 G/dL Normal 12.0-16.0 [facility] Comment on above: Performed By: #### F T4, CBC, VIDH, ADIFF, TSH, GFR, ANEU, FE, FERR, CMP, FT3 #### [address] [address] MCH (RBC) [Entitic mass] 31.5 pg High 27.0-31.2 [facility] Comment on above: Performed By: #### F T4, CBC, VIDH, ADIFF, TSH, GFR, ANEU, FE, FERR, CMP, FT3 #### [place] [address] MCHC 33.7 G/dL Normal 33.0-37.0 [facility] Comment on above: Performed By: #### F T4, CBC, VIDH, ADIFF, TSH, GFR, ANEU, FE, FERR, CMP, FT3 #### [place] [address] MCV (RBC) [Entitic vol] 93.6 fL Normal 80.0-94.0 [facility] Comment on above: Performed By: #### F T4, CBC, VIDH, ADIFF, TSH, GFR, ANEU, FE, FERR, CMP, FT3 #### [place] [address] Platelet 158 10 3/mcL Normal 130-400 [facility] Comment on above: Performed By: #### F T4, CBC, VIDH, ADIFF, TSH, GFR, ANEU, FE, FERR, CMP, FT3 #### [place] [id number] Platelet mean volume (Bld) [Entitic vol] 9.1 fL Normal 7.4-10.4 [facility] Comment on above: Performed By: #### F T4, CBC, VIDH, ADIFF, TSH, GFR, ANEU, FE, FERR, CMP, FT3 #### [place] [id number] RBC 4.26 10 6/mcL Normal 4.20-5.40 [facility] Comment on above: Performed By: #### F T4, CBC, VIDH, ADIFF, TSH, GFR, ANEU, FE, FERR, CMP, FT3 #### [address] [address] WBC 5.9 10 3/mcL Normal 4.6-10.8 [facility] Comment on above: Performed By: #### F T4, CBC, VIDH, ADIFF, TSH, GFR, ANEU, FE, FERR, CMP, FT3 #### [address] [address] CMPon 12-09-2023 Albumin Level 3.5 G/dL Normal 3.4-4.8 [facility] Comment on above: Performed By: #### F T4, CBC, VIDH, ADIFF, TSH, GFR, ANEU, FE, FERR, CMP, FT3 #### [address] [address] Albumin/Globulin [Mass ratio] 1.0 {ratio} Low 1.1-2.5 [facility] Comment on above: Performed By: #### F T4, CBC, VIDH, ADIFF, TSH, GFR, ANEU, FE, FERR, CMP, FT3 #### [address] [address] ALP [Catalytic activity/Vol] 115 U/L Normal 40-135 [facility] Comment on above: Performed By: #### F T4, CBC, VIDH, ADIFF, TSH, GFR, ANEU, FE, FERR, CMP, FT3 #### [address] [address] ALT [Catalytic activity/Vol] 25 U/L Normal 14-59 [facility] Comment on above: Performed By: #### F T4, CBC, VIDH, ADIFF, TSH, GFR, ANEU, FE, FERR, CMP, FT3 #### [address] [address] AST [Catalytic activity/Vol] 14 U/L Normal 10-40 [facility] Comment on above: Performed By: #### F T4, CBC, VIDH, ADIFF, TSH, GFR, ANEU, FE, FERR, CMP, FT3 #### [address] [address] Bili Total 0.5 mg/dL Normal 0.2-1.0 [facility] Comment on above: Result Comment: Use of this assay is not recommended for patients undergoing treatment with eltrombopag due to the potential for falsely elevated results. Performed By: #### F T4, CBC, VIDH, ADIFF, TSH, GFR, ANEU, FE, FERR, CMP, FT3 #### [address] [address] BUN/Creatinine Ratio 20 ratio Normal 7-27 [facility] Comment on above: Performed By: #### F T4, CBC, VIDH, ADIFF, TSH, GFR, ANEU, FE, FERR, CMP, FT3 #### [address] [address] Calcium [Mass/Vol] 8.7 mg/dL Normal 8.4-10.2 [facility] Comment on above: Performed By: #### F T4, CBC, VIDH, ADIFF, TSH, GFR, ANEU, FE, FERR, CMP, FT3 #### [address] [address] Chloride [Moles/Vol] 103 mmol/L Normal 98-107 [facility] Comment on above: Performed By: #### F T4, CBC, VIDH, ADIFF, TSH, GFR, ANEU, FE, FERR, CMP, FT3 #### [address] [address] CO2 [Moles/Vol] 30 mmol/L Normal 23-31 [facility] Comment on above: Performed By: #### F T4, CBC, VIDH, ADIFF, TSH, GFR, ANEU, FE, FERR, CMP, FT3 #### [address] [address] Creatinine [Mass/Vol] 0.91 mg/dL Normal 0.55-1.02 [facility] Comment on above: Result Comment: Test ing performed on Siemens Dimension EXL analyzer using a modified kinetic Gregoria technique. Performed By: #### F T4, CBC, VIDH, ADIFF, TSH, GFR, ANEU, FE, FERR, CMP, FT3 #### [address] [address] Electrolyte Balance 5.0 mEq/L Normal 4.0-15.0 [facility] Comment on above: Performed By: #### F T4, CBC, VIDH, ADIFF, TSH, GFR, ANEU, FE, FERR, CMP, FT3 #### [address] [address] Globulin 3.6 G/dL Normal [facility] Comment on above: Performed By: #### F T4, CBC, VIDH, ADIFF, TSH, GFR, ANEU, FE, FERR, CMP, FT3 #### [address] [address] Glucose [Mass/Vol] 102 mg/dL Normal 83-110 [facility] Comment on above: Performed By: #### F T4, CBC, VIDH, ADIFF, TSH, GFR, ANEU, FE, FERR, CMP, FT3 #### [address] [address] Potassium [Moles/Vol] 4.0 mmol/L Normal 3.5-5.1 [facility] Comment on above: Performed By: #### F T4, CBC, VIDH, ADIFF, TSH, GFR, ANEU, FE, FERR, CMP, FT3 #### [address] [address] Sodium [Moles/Vol] 138 mmol/L Normal 136-145 [facility] Comment on above: Performed By: #### F T4, CBC, VIDH, ADIFF, TSH, GFR, ANEU, FE, FERR, CMP, FT3 #### [address] [address] Total Protein 7.1 G/dL Normal 6.4-8.2 [facility] Comment on above: Performed By: #### F T4, CBC, VIDH, ADIFF, TSH, GFR, ANEU, FE, FERR, CMP, FT3 #### [address] [address] Urea nitrogen [Mass/Vol] 18 mg/dL Normal 7-18 [facility] Comment on above: Performed By: #### F T4, CBC, VIDH, ADIFF, TSH, GFR, ANEU, FE, FERR, CMP, FT3 #### [facility] [address], [place] [address] LABORATORYOrdered By: SYSTEM SYSTEM on 12-09-2023 25-hydroxyvitamin D3 [Mass/Vol] 74.6 ng/mL Invalid Interpretation Code AO ADM SS Comment on above: Interpretive Data: I nterpretive Values Based on Total 25(OH) Vitamin D: Deficient <20 ng/mL Insufficient 20 - <30 ng/mL Sufficient 30-100 ng/mL Albumin BCP dye [Mass/Vol] 3.5 G/dL Normal 3.4 - 4.8 G/dL AO ADM SS Albumin/Globulin [Mass ratio] 1.0 {ratio} Low 1.1 - 2.5 ratio AO ADM SS ALP [Catalytic activity/Vol] 115 U/L Normal 40 - 135 U/L AO ADM SS ALT With P-5'-P [Catalytic activity/Vol] 25 U/L Normal 14 - 59 U/L AO ADM SS AST With P-5'-P [Catalytic activity/Vol] 14 U/L Normal 10 - 40 U/L AO ADM SS Basophils (Bld) [#/Vol] 0.0 103/mcL Normal 0.0 - 0.2 10^3/mcL AO Workflow SS Basophils/100 WBC (Bld) 0.5 % Normal 0.0 - 2.5 % AO Workflow SS Bilirubin [Mass/Vol] 0.5 mg/dL Normal 0.2 - 1.0 mg/dL AO ADM SS Comment on above: Interpretive Data: U se of this assay is not recommended for patients undergoing treatment with eltrombopag due to the potential for falsely elevated results. Calcium [Mass/Vol] 8.7 mg/dL Normal 8.4 - 10. 2 mg/dL AO ADM SS Chloride [Moles/Vol] 103 mmol/L Normal 98 - 107 mmol/L AO ADM SS CO2 [Moles/Vol] 30 mmol/L Normal 23 - 31 mmol/L AO ADM SS Creatinine [Mass/Vol] 0.91 mg/dL Normal 0.55 - 1.02 mg/dL AO ADM SS Comment on above: Interpretive Data: T esting performed on Siemens Dimension EXL analyzer using a modified kinetic Gregoria technique. Electrolyte Balance 5.0 mEq/L Normal 4.0 - 15 .0 mEq/L AO ADM SS Eosinophil, Absolute 0.4 103/mcL Normal 0.0 - 0.4 10^3/mcL AO Workflow SS Eosinophils/100 WBC (Bld) 5.9 % Normal 0.0 - 7.0 % AO Workflow SS Erythrocyte distribution width (RBC) [Ratio] 14.0 % Normal 11.5 - 14.5 % AO Workflow SS GFR/1.73 sq M.predicted among blacks MDRD (S/P/Bld) [Vol rate/Area] 73 ml/min/1.73sqm Invalid Interpretation Code AO Chemistry S Comment on above: Interpretive Data: GFR Population mean for , Non- Americans Ages 20-29 = 116 mL/min/1.73 sq.m. Ages 30-39 = 107 mL/min/1.73 sq.m. Ages 40-49 = 99 mL/min/1.73 sq.m. Ages 50-59 = 93 mL/min/1.73 sq.m. Ages 60-69 = 85 mL/min/1.73 sq.m. Ages 70+ = 75 mL/min/1.73 sq.m. Chronic Kidney Disease: Less than 60 mL/min/1.73 square meters End Stage Renal Disease: Less than 15 mL/min/1.73 square meters GFR/1.73 sq M.predicted among non-blacks MDRD (S/P/Bld) [Vol rate/Area] 60 ml/min/1.73sqm Invalid Interpretation Code AO Chemistry S Comment on above: Interpretive Data: GFR Population mean for , Non- Americans Ages 20-29 = 116 mL/min/1.73 sq.m. Ages 30-39 = 107 mL/min/1.73 sq.m. Ages 40-49 = 99 mL/min/1.73 sq.m. Ages 50-59 = 93 mL/min/1.73 sq.m. Ages 60-69 = 85 mL/min/1.73 sq.m. Ages 70+ = 75 mL/min/1.73 sq.m. Chronic Kidney Disease: Less than 60 mL/min/1.73 square meters End Stage Renal Disease: Less than 15 mL/min/1.73 square meters Globulin 3.6 G/dL Invalid Interpretation Code AO ADM SS Glucose [Mass/Vol] 102 mg/dL Normal 83 - 110 mg/dL AO ADM SS Glucose [Mass/Vol] 128 mg/dL Invalid Interpretation Code AO Chemistry S Comment on above: Interpretive Data: E stimated average glucose (eAG) is a calculated value from Hemoglobin A1C and is 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 Normal range: less than 114 mg/dL HbA1c (Bld) [Mass fraction] 6.1 % Normal 4.3 - 6.4 % AO ADM SS Hematocrit (Bld) [Volume fraction] 39.8 % Normal 37.0 - 47.0 % AO Workflow SS Hemoglobin (Bld) [Mass/Vol] 13.4 G/dL Normal 12.0 - 16.0 G/dL AO Workflow SS Lymphocytes (Bld) [#/Vol] 1.9 103/mcL Normal 0.8 - 3.9 10^3/mcL AO Workflow SS Lymphocytes/100 WBC (Bld) 32.7 % Normal 10.0 - 50.0 % AO Workflow SS MCH (RBC) [Entitic mass] 31.5 pg High 27.0 - 31.2 pg AO Workflow SS MCHC 33.7 G/dL Normal 33.0 - 37.0 G/dL AO Workflow SS MCV (RBC) [Entitic vol] 93.6 fL Normal 80.0 - 94.0 fL AO Workflow SS Monocytes (Bld) [#/Vol] 0.5 103/mcL Normal 0.2 - 1.0 10^3/mcL AO Workflow SS Monocytes/100 WBC (Bld) 8.2 % Normal 1.7 - 13.0 % AO Workflow SS Neutrophils (Bld) [#/Vol] 3.1 103/mcL Normal 2.9 - 6.2 10^3/mcL AO Workflow SS Neutrophils/100 WBC (Bld) 52.7 % Normal 37.0 - 80.0 % AO Workflow SS Platelet mean volume (Bld) [Entitic vol] 9.1 fL Normal 7.4 - 10.4 fL AO Workflow SS Platelets (Bld) [#/Vol] 158 103/mcL Normal 130 - 400 10^3/mcL AO Workflow SS Potassium [Moles/Vol] 4.0 mmol/L Normal 3.5 - 5.1 mmol/L AO ADM SS Protein [Mass/Vol] 7.1 G/dL Normal 6.4 - 8.2 G/dL AO ADM SS RBC (Bld) [#/Vol] 4.26 106/mcL Normal 4.20 - 5.4 0 10^6/mcL AO Workflow SS Sodium [Moles/Vol] 138 mmol/L Normal 136 - 145 mmol/L AO ADM SS TSH Qn 0.45 m[IU]/L Normal 0.36 - 3.74 mcIU/mL AO ADM SS Urea nitrogen [Mass/Vol] 18 mg/dL Normal 7 - 18 mg/dL AO ADM SS Urea nitrogen/Creatinine [Mass ratio] 20 ratio Normal 7 - 27 ratio AO ADM SS WBC (Bld) [#/Vol] 5.9 103/mcL Normal 4.6 - 10.8 10^3/mcL AO Workflow SS LABORATORYOrdered By: Ni Moody on 12-09-2023 Cholesterol [Mass/Vol] 212 mg/dL High 0 - 200 mg/dL AO ADM SS Comment on above: Interpretive Data: C holesterol Reference Interval: Less than 200 Desirable 200-239 Borderline high risk 240 and above High risk Cholesterol in HDL [Mass/Vol] 39 mg/dL Low 40 - 60 mg/dL AO ADM SS Cholesterol in LDL [Mass/Vol] 128 mg/dL Normal 0 - 130 mg/dL AO ADM SS Triglyceride [Mass/Vol] 223 mg/dL High 0 - 150 mg/dL AO ADM SS Comment on above: Interpretive Data: T riglyceride Reference Interval: Less than 150 Normal 150-199 Borderline high risk 200-499 High risk 500 or higher Very high risk LIPIDon 12-09-2023 Cholesterol [Mass/Vol] 212 mg/dL High 0-200 [facility] Comment on above: Result Comment: Chol esterol Reference Interval: Less than 200 Desirable 200-239 Borderline high risk 240 and above High risk Performed By: #### F T4, CBC, VIDH, ADIFF, TSH, GFR, ANEU, FE, FERR, CMP, FT3 #### [facility] [address], [place] [address] Cholesterol in HDL [Mass/Vol] 39 mg/dL Low 40-60 [facility] Comment on above: Performed By: #### F T4, CBC, VIDH, ADIFF, TSH, GFR, ANEU, FE, FERR, CMP, FT3 #### [address] [address] Cholesterol in LDL [Mass/Vol] 128 mg/dL Normal 0-130 [facility] Comment on above: Performed By: #### F T4, CBC, VIDH, ADIFF, TSH, GFR, ANEU, FE, FERR, CMP, FT3 #### [address] [address] Triglyceride [Mass/Vol] 223 mg/dL High 0-150 [facility] Comment on above: Result Comment: Trig lyceride Reference Interval: Less than 150 Normal 150-199 Borderline high risk 200-499 High risk 500 or higher Very high risk Performed By: #### F T4, CBC, VIDH, ADIFF, TSH, GFR, ANEU, FE, FERR, CMP, FT3 #### [address] [address] TSHon 12-09-2023 TSH Qn 0.45 m[IU]/L Normal 0.36-3.74 [facility] Comment on above: Performed By: #### F T4, CBC, VIDH, ADIFF, TSH, GFR, ANEU, FE, FERR, CMP, FT3 #### [address] [address] VIDHon 12-09-2023 Vit. D 25-Hydroxy 74.6 ng/mL Normal [facility] Comment on above: Result Comment: Inte rpretive Values Based on Total 25(OH) Vitamin D: Deficient <20 ng/mL Insufficient 20 - <30 ng/mL Sufficient 30-100 ng/mL Performed By: #### F T4, CBC, VIDH, ADIFF, TSH, GFR, ANEU, FE, FERR, CMP, FT3 #### [address] [address] Final Surgical Pathology Rep [facility] 11-18-2023 Final Surgical Pathology Report . Pathology Reports Accession: Collected Date/Time: Received Date/Time: Pathologist: [id number] 11/17/2023 09:59 EDT 11/17/2023 14:25 MD NADYA LYLES Final Surgical Pathology Report DIAGNOSIS: STOMACH, BIOPSY: - MILD CHRONIC GASTRITIS - NEGATIVE FOR H. PYLORI CLINICAL INFORMATION: Procedure: ESOPHAGOGASTRODUODENOSCOPY Preoperative diagnosis: EPIGASTRIC PAIN Postoperative diagnosis: EPIGASTRIC PAIN SPECIMEN: A GASTRIC, BX GROSS DESCRIPTION: All parts labelled with patient name and [id number] Received in formalin labeled gastric antrum are 4 bui-pink tissue fragments measuring less than 0.1 to 0.4 x 0.1 cm. Smallest fragment may not survive processing. TS-1 Gayatri Dennis, Grossing Pole Peeling Machine Operator/ Dr. Lisandro Mosqueda, Pathologist Performed by Gayatri Dennis MICROSCOPIC DESCRIPTION: The microscopic examination is performed, except in the case of Gross Only. Electronically Signed by Pathology Report verified by [facility] NADYA GAONA MD Sign out Date: 11/18/2023 09:24 Performing Lab: [facility], [address] [place] [address] Pathology Dept Disclaimer If ancillary studies were utilized, the following Laboratory Developed Test (LDT) disclaimer will apply: Under CLIA requirements, [facility] is qualified to perform high complexity testing. For all ancillary stains, positive and negative controls stain appropriately. Performance characteristics of immunohistochemical and chromogenic in-situ hybridization tests have been determined by [facility]. These tests are used for clinical purposes, They should not be regarded as investigational or for research. Normal [facility] ([place]) FT3on 09-03-2023 Free T3 [Mass/Vol] 3.02 pg/mL Normal 2.30-4.00 [facility]) Comment on above: Performed By: #### F T3, FT4, [id number], FERR, FE #### [place] [address] FT409-03-2023 Free T4 [Mass/Vol] 1.05 ng/dL Normal 0.76-1.46 [facility]) Comment on above: Performed By: #### F T3, FT4, 415648, FERR, FE #### [place] [id number] LABORATORYOrdered By: SYSTEM SYSTEM on 09-03-2023 Free T3 [Mass/Vol] 3.02 pg/mL Normal 2.30 - 4. 00 pg/mL AO ADM SS Free T4 [Mass/Vol] 1.05 ng/dL Normal 0.76 - 1. 46 ng/dL AO ADM SS TSH Qn 0.48 m[IU]/L Normal 0.36 - 3.74 mcIU/mL AO ADM SS TSHon 09-03-2023 TSH Qn 0.48 m[IU]/L Normal 0.36-3.74 [facility] ([place]) Comment on above: Performed By: #### F T3, FT4, 387989, FERR, FE #### [place] [address] B12on 08-07-2023 Cobalamin (Vitamin B12) [Mass/Vol] 638 pg/mL Normal 211-911 [facility] ([place] Comment on above: Performed By: #### F T3, FT4, 051764, FERR, FE #### [place] [address] FOLon 08-07-2023 Folate 33.22 ng/mL High 5.38-24.00 [facility] ([place] Comment on above: Performed By: #### F T3, FT4, 020853, FERR, FE #### [place] [address] FT3on 08-07-2023 Free T3 [Mass/Vol] 2.65 pg/mL Normal 2.30-4.00 [facility] ([place]) Comment on above: Performed By: #### T SH, FT4, FT3, MG #### [place] [address] #### B12, FOL #### [address] [address] FT4on 08-07-2023 Free T4 [Mass/Vol] 1.17 ng/dL Normal 0.76-1.46 [facility] ([place]) Comment on above: Performed By: #### T SH, FT4, FT3, MG #### [address] [address] #### B12, FOL #### [place] [address] LABORATORYOrdered By: SYSTEM SYSTEM on 08-07-2023 Cobalamin (Vitamin B12) [Mass/Vol] 638 pg/mL Normal 211 - 911 pg/mL AH ADM SS Folate [Mass/Vol] 33.22 ng/mL High 5.38 - 24.00 ng/mL AH ADM SS Free T3 [Mass/Vol] 2.65 pg/mL Normal 2.30 - 4. 00 pg/mL AO ADM SS Free T4 [Mass/Vol] 1.17 ng/dL Normal 0.76 - 1. 46 ng/dL AO ADM SS Magnesium [Mass/Vol] 1.8 mg/dL Normal 1.8 - 2.4 mg/dL AO ADM SS TSH Qn 1.01 m[IU]/L Normal 0.36 - 3.74 mcIU/mL AO ADM SS MGon 08-07-2023 Magnesium [Mass/Vol] 1.8 mg/dL Normal 1.8-2.4 [facility] ([place] Comment on above: Performed By: #### T SH, FT4, FT3, MG #### [address] [address] #### B12, FOL #### [place] [address] TSHon 08-07-2023 TSH Qn 1.01 m[IU]/L Normal 0.36-3.74 [facility] ([place]) Comment on above: Performed By: #### T SH, FT4, FT3, MG #### [address] [address] #### B12, FOL #### [place] [address] MALBRon 06-15-2023 U Creatinine 17.0 mg/dL Low 28.0-117.0 [facility] ([place] Comment on above: Performed By: #### F T3, FT4, 770224, FERR, FE #### [address] [address] U Microalb 200 mcg/dL Normal [facility] ([place] Comment on above: Performed By: #### F T3, FT4, 067413, FERR, FE #### [address] [address] U Ratio Alb/Cre 12 mcg/mg Normal 0-30 [facility] ([place] Comment on above: Performed By: #### F T3, FT4, 777415, FERR, FE #### [place] [address] LMERLYon 06-14-2023 Lyme Total Antibody KITTY Negative Normal Negative [facility] ([place]) Comment on above: Result Comment: Lyme antibodies not detected. Reflex testing is not indicated. No laboratory evidence of infection with B. burgdorferi (Lyme disease). Negative results may occur in patients recently infected (less than or equal to 14 days) with B. burgdorferi. If recent infection is suspected, repeat testing on a new sample collected in 7 to 14 days is recommended. Performed At: [address] [id number] Quintin Jacobo PhD Ph:[phone] Performed By: #### F T3, FT4, 418703, FERR, FE #### [place] [address] FEon 06-13-2023 Iron [Mass/Vol] 65 ug/dL Normal 50-170 [facility] ([place]) Comment on above: Performed By: #### F T3, FT4, 657775, FERR, FE #### [address] [address] Tru 06-13-2023 Ferritin [Mass/Vol] 208.0 ng/mL Normal 8.0-252.0 [facility] ([place]) Comment on above: Performed By: #### F T3, FT4, 983950, FERR, FE #### [address] [address] FT3on 06-13-2023 Free T3 [Mass/Vol] 3.04 pg/mL Normal 2.30-4.00 [facility] ([place]) Comment on above: Performed By: #### F T3, FT4, [id number], FERR, FE #### [place] [address] FT4on 06-13-2023 Free T4 [Mass/Vol] 0.76 ng/dL Normal 0.76-1.46 [facility] ([place]) Comment on above: Performed By: #### F T3, FT4, [id number], FERR, FE #### [place] [address] LABORATORYOrdered By: Rito Hammond on 06-13-2023 Albumin DL <= 20 mg/L (U) [Mass/Vol] 200 mcg/dL Invalid Interpretation Code AO ADM SS Albumin/Creatinine DL <= 20 mg/L (U) [Mass ratio] 12 mcg/mg Normal 0 - 30 mcg/mg AO ADM SS Creatinine (U) [Mass/Vol] 17.0 mg/dL Low 28.0 - 117.0 mg/dL AO ADM SS LABORATORYOrdered By: SYSTEM SYSTEM on 06-13-2023 Ferritin [Mass/Vol] 208.0 ng/mL Normal 8.0 - 25 2.0 ng/mL AO ADM SS Free T3 [Mass/Vol] 3.04 pg/mL Normal 2.30 - 4. 00 pg/mL AO ADM SS Free T4 [Mass/Vol] 0.76 ng/dL Normal 0.76 - 1. 46 ng/dL AO ADM SS Iron [Mass/Vol] 65 ug/dL Normal 50 - 170 mcg/dL AO ADM SS VIDHon 06-04-2023 Vit. D 25-Hydroxy 66.0 ng/mL Normal [facility] ([place]) Comment on above: Result Comment: Inte rpretive Values Based on Total 25(OH) Vitamin D: Deficient <20 ng/mL Insufficient 20 - <30 ng/mL Sufficient 30-100 ng/mL Performed By: #### F T3, FT4, [id number], FERR, FE #### [place] [address] .Auto Diffon 06-03-2023 Basophil, Absolute 0.0 10 3/mcL Normal 0.0-0.2 [facility] ([place]) Comment on above: Performed By: #### F T3, FT4, 614496, FERR, FE #### [address] [address] Basophils/100 WBC (Bld) 0.5 % Normal 0.0-2.5 [facility] ([place]) Comment on above: Performed By: #### F T3, FT4, 152357, FERR, FE #### [address] [address] Eosinophil, Absolute 0.3 10 3/mcL Normal 0.0-0.4 [facility] ([place]) Comment on above: Performed By: #### F T3, FT4, 581023, FERR, FE #### [address] [address] Eosinophils/100 WBC (Bld) 5.3 % Normal 0.0-7.0 [facility] ([place]) Comment on above: Performed By: #### F T3, FT4, 709555, FERR, FE #### [address] [address] Lymphocyte, Absolute 1.4 10 3/mcL Normal 0.8-3.9 [facility] ([place]) Comment on above: Performed By: #### F T3, FT4, 360779, FERR, FE #### [address] [address] Lymphocytes/100 WBC (Bld) 27.0 % Normal 10.0-50.0 [facility] ([place]) Comment on above: Performed By: #### F T3, FT4, 836267, FERR, FE #### [address] [address] Monocyte, Absolute 0.5 10 3/mcL Normal 0.2-1.0 [facility] ([place]) Comment on above: Performed By: #### F T3, FT4, 138852, FERR, FE #### [address] [address] Monocytes/100 WBC (Bld) 9.6 % Normal 1.7-13.0 [facility] ([place]) Comment on above: Performed By: #### F T3, FT4, 341469, FERR, FE #### [address] [address] Neutrophils/100 WBC (Bld) 57.6 % Normal 37.0-80.0 [facility] ([place] Comment on above: Performed By: #### F T3, FT4, 296793, FERR, FE #### [address] [address] .GFRon 06-03-2023 GFR Non- 62 ml/min/1.73sqm Normal [facility] ([place]) Comment on above: Result Comment: GFR Population mean for , Non- Americans Ages 20-29 = 116 mL/min/1.73 sq.m. Ages 30-39 = 107 mL/min/1.73 sq.m. Ages 40-49 = 99 mL/min/1.73 sq.m. Ages 50-59 = 93 mL/min/1.73 sq.m. Ages 60-69 = 85 mL/min/1.73 sq.m. Ages 70+ = 75 mL/min/1.73 sq.m. Chronic Kidney Disease: Less than 60 mL/min/1.73 square meters End Stage Renal Disease: Less than 15 mL/min/1.73 square meters Performed By: #### F T3, FT4, 160872, FERR, FE #### [address] [address] GFR 75 ml/min/1.73sqm Normal [facility] ([place] Comment on above: Result Comment: GFR Population mean for , Non- Americans Ages 20-29 = 116 mL/min/1.73 sq.m. Ages 30-39 = 107 mL/min/1.73 sq.m. Ages 40-49 = 99 mL/min/1.73 sq.m. Ages 50-59 = 93 mL/min/1.73 sq.m. Ages 60-69 = 85 mL/min/1.73 sq.m. Ages 70+ = 75 mL/min/1.73 sq.m. Chronic Kidney Disease: Less than 60 mL/min/1.73 square meters End Stage Renal Disease: Less than 15 mL/min/1.73 square meters Performed By: #### F T3, FT4, 078067, FERR, FE #### [place] [address] .NEUABSon 06-03-2023 Neutrophil, Absolute 3.0 10 3/mcL Normal 2.9-6.2 [facility] ([place] Comment on above: Performed By: #### F T3, FT4, 448550, FERR, FE #### [place] [address] A1Con 06-03-2023 HbA1c (Bld) [Mass fraction] 6.2 % Normal 4.3-6.4 [facility] ([place] Comment on above: Performed By: #### F T3, FT4, 824584, FERR, FE #### [place] [address] CBCon 06-03-2023 Erythrocyte distribution width (RBC) [Ratio] 13.9 % Normal 11.5-14.5 [facility] ([place] Comment on above: Performed By: #### F T3, FT4, 185708, FERR, FE #### [place] [address] Hematocrit (Bld) [Volume fraction] 40.0 % Normal 37.0-47.0 [facility] ([place] Comment on above: Performed By: #### F T3, FT4, 039759, FERR, FE #### [place] [address] Hgb 13.5 G/dL Normal 12.0-16.0 [facility] ([place] Comment on above: Performed By: #### F T3, FT4, 017430, FERR, FE #### [place] [address] MCH (RBC) [Entitic mass] 30.9 pg Normal 27.0-31.2 [facility] ([place] Comment on above: Performed By: #### F T3, FT4, 477809, FERR, FE #### [place] [address] MCHC 33.8 G/dL Normal 33.0-37.0 [facility] ([place] Comment on above: Performed By: #### F T3, FT4, 267178, FERR, FE #### [address] [address] MCV (RBC) [Entitic vol] 91.4 fL Normal 80.0-94.0 [facility] ([place] Comment on above: Performed By: #### F T3, FT4, 291526, FERR, FE #### [address] [address] Platelet 162 10 3/mcL Normal 130-400 [facility] ([place] Comment on above: Performed By: #### F T3, FT4, 872874, FERR, FE #### [address] [address] Platelet mean volume (Bld) [Entitic vol] 8.4 fL Normal 7.4-10.4 [facility] ([place]) Comment on above: Performed By: #### F T3, FT4, 179953, FERR, FE #### [address] [address] RBC 4.37 10 6/mcL Normal 4.20-5.40 [facility] ([place] Comment on above: Performed By: #### F T3, FT4, 269773, FERR, FE #### [address] [address] WBC 5.2 10 3/mcL Normal 4.6-10.8 [facility] ([place] Comment on above: Performed By: #### F T3, FT4, 369023, FERR, FE #### [address] [address] CMPon 06-03-2023 Albumin Level 3.3 G/dL Low 3.4-4.8 [facility] ([place] Comment on above: Performed By: #### F T3, FT4, 552580, FERR, FE #### [address] [address] Albumin/Globulin [Mass ratio] 0.9 {ratio} Low 1.1-2.5 [facility] ([place] Comment on above: Performed By: #### F T3, FT4, 386727, FERR, FE #### [place] [address] ALP [Catalytic activity/Vol] 96 U/L Normal 40-135 [facility] ([place] Comment on above: Performed By: #### F T3, FT4, 493742, FERR, FE #### [place] [address] ALT [Catalytic activity/Vol] 26 U/L Normal 14-59 [facility] ([place] Comment on above: Performed By: #### F T3, FT4, [id number], FERR, FE #### [place] [address] AST [Catalytic activity/Vol] 18 U/L Normal 10-40 [facility] ([place] Comment on above: Performed By: #### F T3, FT4, 513873, FERR, FE #### [place] [address] Bili Total 0.6 mg/dL Normal 0.2-1.0 [facility] ([place] Comment on above: Result Comment: Use of this assay is not recommended for patients undergoing treatment with eltrombopag due to the potential for falsely elevated results. Performed By: #### F T3, FT4, 809885, FERR, FE #### [place] [address] BUN/Creatinine Ratio 27 ratio Normal 7-27 [facility] ([place] Comment on above: Performed By: #### F T3, FT4, 590981, FERR, FE #### [address] [address] Calcium [Mass/Vol] 8.5 mg/dL Normal 8.4-10.2 [facility] ([place]) Comment on above: Performed By: #### F T3, FT4, 745103, FERR, FE #### [address] [address] Chloride [Moles/Vol] 101 mmol/L Normal 98-107 [facility] ([place] Comment on above: Performed By: #### F T3, FT4, [id number], FERR, FE #### [address] [address] CO2 [Moles/Vol] 27 mmol/L Normal 23-31 [facility] ([place] Comment on above: Performed By: #### F T3, FT4, [id number], FERR, FE #### [address] [address] Creatinine [Mass/Vol] 0.89 mg/dL Normal 0.55-1.02 [facility] ([place] Comment on above: Performed By: #### F T3, FT4, [id number], FERR, FE #### [address] [address] Electrolyte Balance 8.0 mEq/L Normal 4.0-15.0 [facility] ([place]) Comment on above: Performed By: #### F T3, FT4, [id number], FERR, FE #### [address] [address] Globulin 3.7 G/dL Normal [facility] ([place] Comment on above: Performed By: #### F T3, FT4, [id number], FERR, FE #### [address] [address] Glucose [Mass/Vol] 115 mg/dL High 83-110 [facility] ([place] Comment on above: Performed By: #### F T3, FT4, [id number], FERR, FE #### [address] [address] Potassium [Moles/Vol] 3.9 mmol/L Normal 3.5-5.1 [facility] ([place] Comment on above: Performed By: #### F T3, FT4, [id number], FERR, FE #### [address] [address] Sodium [Moles/Vol] 136 mmol/L Normal 136-145 [facility] ([place] Comment on above: Performed By: #### F T3, FT4, 118999, FERR, FE #### [place] [address] [place], [place] [address] Total Protein 7.0 G/dL Normal 6.4-8.2 [facility] ([place] Comment on above: Performed By: #### F T3, FT4, 586863, FERR, FE #### [place] [address] [place], [place] [address] Urea nitrogen [Mass/Vol] 24 mg/dL High 7-18 [facility] ([place] Comment on above: Performed By: #### F T3, FT4, [id number], FERR, FE #### [id number] [place], [place] [address] LABORATORYOrdered By: SYSTEM SYSTEM on 06-03-2023 Albumin BCP dye [Mass/Vol] 3.3 G/dL Low 3.4 - 4.8 G/dL AO ADM SS Albumin/Globulin [Mass ratio] 0.9 {ratio} Low 1.1 - 2.5 ratio AO ADM SS ALP [Catalytic activity/Vol] 96 U/L Normal 40 - 135 U/L AO ADM SS ALT With P-5'-P [Catalytic activity/Vol] 26 U/L Normal 14 - 59 U/L AO ADM SS AST With P-5'-P [Catalytic activity/Vol] 18 U/L Normal 10 - 40 U/L AO ADM SS Basophil, Absolute 0.0 103/mcL Normal 0.0 - 0.2 10^3/mcL AO Workflow SS Basophils/100 WBC (Bld) 0.5 % Normal 0.0 - 2.5 % AO Workflow SS Bilirubin [Mass/Vol] 0.6 mg/dL Normal 0.2 - 1.0 mg/dL AO ADM SS Comment on above: Interpretive Data: U se of this assay is not recommended for patients undergoing treatment with eltrombopag due to the potential for falsely elevated results. Calcium [Mass/Vol] 8.5 mg/dL Normal 8.4 - 10. 2 mg/dL AO ADM SS Chloride [Moles/Vol] 101 mmol/L Normal 98 - 107 mmol/L AO ADM SS CO2 [Moles/Vol] 27 mmol/L Normal 23 - 31 mmol/L AO ADM SS Creatinine [Mass/Vol] 0.89 mg/dL Normal 0.55 - 1.02 mg/dL AO ADM SS Electrolyte Balance 8.0 mEq/L Normal 4.0 - 15 .0 mEq/L AO ADM SS Eosinophil, Absolute 0.3 103/mcL Normal 0.0 - 0.4 10^3/mcL AO Workflow SS Eosinophils/100 WBC (Bld) 5.3 % Normal 0.0 - 7.0 % AO Workflow SS Erythrocyte distribution width (RBC) [Ratio] 13.9 % Normal 11.5 - 14.5 % AO Workflow SS GFR/1.73 sq M.predicted among blacks MDRD (S/P/Bld) [Vol rate/Area] 75 ml/min/1.73sqm Invalid Interpretation Code AO Chemistry S Comment on above: Interpretive Data: GFR Population mean for , Non- Americans Ages 20-29 = 116 mL/min/1.73 sq.m. Ages 30-39 = 107 mL/min/1.73 sq.m. Ages 40-49 = 99 mL/min/1.73 sq.m. Ages 50-59 = 93 mL/min/1.73 sq.m. Ages 60-69 = 85 mL/min/1.73 sq.m. Ages 70+ = 75 mL/min/1.73 sq.m. Chronic Kidney Disease: Less than 60 mL/min/1.73 square meters End Stage Renal Disease: Less than 15 mL/min/1.73 square meters GFR/1.73 sq M.predicted among non-blacks MDRD (S/P/Bld) [Vol rate/Area] 62 ml/min/1.73sqm Invalid Interpretation Code AO Chemistry S Comment on above: Interpretive Data: GFR Population mean for , Non- Americans Ages 20-29 = 116 mL/min/1.73 sq.m. Ages 30-39 = 107 mL/min/1.73 sq.m. Ages 40-49 = 99 mL/min/1.73 sq.m. Ages 50-59 = 93 mL/min/1.73 sq.m. Ages 60-69 = 85 mL/min/1.73 sq.m. Ages 70+ = 75 mL/min/1.73 sq.m. Chronic Kidney Disease: Less than 60 mL/min/1.73 square meters End Stage Renal Disease: Less than 15 mL/min/1.73 square meters Globulin 3.7 G/dL Invalid Interpretation Code AO ADM SS Glucose [Mass/Vol] 115 mg/dL High 83 - 110 mg/dL AO ADM SS HbA1c (Bld) [Mass fraction] 6.2 % Normal 4.3 - 6.4 % AO ADM SS Hematocrit (Bld) [Volume fraction] 40.0 % Normal 37.0 - 47.0 % AO Workflow SS Hemoglobin (Bld) [Mass/Vol] 13.5 G/dL Normal 12.0 - 16.0 G/dL AO Workflow SS Lymphocyte, Absolute 1.4 103/mcL Normal 0.8 - 3.9 10^3/mcL AO Workflow SS Lymphocytes/100 WBC (Bld) 27.0 % Normal 10.0 - 50.0 % AO Workflow SS MCH (RBC) [Entitic mass] 30.9 pg Normal 27.0 - 31.2 pg AO Workflow SS MCHC 33.8 G/dL Normal 33.0 - 37.0 G/dL AO Workflow SS MCV (RBC) [Entitic vol] 91.4 fL Normal 80.0 - 94.0 fL AO Workflow SS Monocyte, Absolute 0.5 103/mcL Normal 0.2 - 1.0 10^3/mcL AO Workflow SS Monocytes/100 WBC (Bld) 9.6 % Normal 1.7 - 13.0 % AO Workflow SS Neutrophil, Absolute 3.0 103/mcL Normal 2.9 - 6.2 10^3/mcL AO Workflow SS Neutrophils/100 WBC (Bld) 57.6 % Normal 37.0 - 80.0 % AO Workflow SS Platelet mean volume (Bld) [Entitic vol] 8.4 fL Normal 7.4 - 10.4 fL AO Workflow SS Platelets (Bld) [#/Vol] 162 103/mcL Normal 130 - 400 10^3/mcL AO Workflow SS Potassium [Moles/Vol] 3.9 mmol/L Normal 3.5 - 5.1 mmol/L AO ADM SS Protein [Mass/Vol] 7.0 G/dL Normal 6.4 - 8.2 G/dL AO ADM SS RBC (Bld) [#/Vol] 4.37 106/mcL Normal 4.20 - 5.4 0 10^6/mcL AO Workflow SS Sodium [Moles/Vol] 136 mmol/L Normal 136 - 145 mmol/L AO ADM SS TSH Qn 2.03 m[IU]/L Normal 0.36 - 3.74 mcIU/mL AO ADM SS Urea nitrogen [Mass/Vol] 24 mg/dL High 7 - 18 mg/dL AO ADM SS Urea nitrogen/Creatinine [Mass ratio] 27 ratio Normal 7 - 27 ratio AO ADM SS WBC (Bld) [#/Vol] 5.2 103/mcL Normal 4.6 - 10.8 10^3/mcL AO Workflow SS LABORATORYOrdered By: Kaia Martinez on 06-03-2023 Cholesterol [Mass/Vol] 226 mg/dL High 0 - 200 mg/dL AO ADM SS Comment on above: Interpretive Data: C holesterol Reference Interval: Less than 200 Desirable 200-239 Borderline high risk 240 and above High risk Cholesterol in HDL [Mass/Vol] 49 mg/dL Normal 40 - 60 mg/dL AO ADM SS Cholesterol in LDL [Mass/Vol] 142 mg/dL High 0 - 130 mg/dL AO ADM SS Triglyceride [Mass/Vol] 176 mg/dL High 0 - 150 mg/dL AO ADM SS Comment on above: Interpretive Data: T riglyceride Reference Interval: Less than 150 Normal 150-199 Borderline high risk 200-499 High risk 500 or higher Very high risk LIPIDon 06-03-2023 Cholesterol [Mass/Vol] 226 mg/dL High 0-200 [facility] ([place]) Comment on above: Result Comment: Chol esterol Reference Interval: Less than 200 Desirable 200-239 Borderline high risk 240 and above High risk Performed By: #### F T3, FT4, [id number], FERR, FE #### Ashely Cunha[address] [address] Cholesterol in HDL [Mass/Vol] 49 mg/dL Normal 40-60 [facility] ([place] Comment on above: Performed By: #### F T3, FT4, [id number], FERR, FE #### Ashely Cunha[address] [address] Cholesterol in LDL [Mass/Vol] 142 mg/dL High 0-130 [facility] ([place] Comment on above: Performed By: #### F T3, FT4, [id number], FERR, FE #### [address] [address] Triglyceride [Mass/Vol] 176 mg/dL High 0-150 [facility] ([place] Comment on above: Result Comment: Trig lyceride Reference Interval: Less than 150 Normal 150-199 Borderline high risk 200-499 High risk 500 or higher Very high risk Performed By: #### F T3, FT4, 094857, FERR, FE #### [address] [address] TSHon 06-03-2023 TSH Qn 2.03 m[IU]/L Normal 0.36-3.74 [facility] ([place]) Comment on above: Performed By: #### F T3, FT4, 711536, FERR, FE #### [address] [address] .Auto Diffon 11-20-2022 Basophil, Absolute 0.0 10 3/mcL Normal 0.0-0.2 [facility] ([place]) Comment on above: Performed By: #### F T3, FT4, 429109, FERR, FE #### [address] [address] Basophils/100 WBC (Bld) 0.5 % Normal 0.0-2.5 [facility] ([place] Comment on above: Performed By: #### F T3, FT4, 365365, FERR, FE #### [address] [address] Eosinophil, Absolute 0.3 10 3/mcL Normal 0.0-0.4 [facility] ([place] Comment on above: Performed By: #### F T3, FT4, 272797, FERR, FE #### [address] [address] Eosinophils/100 WBC (Bld) 4.7 % Normal 0.0-7.0 [facility] ([place] Comment on above: Performed By: #### F T3, FT4, 888424, FERR, FE #### [address] [address] Lymphocyte, Absolute 1.8 10 3/mcL Normal 0.8-3.9 [facility] ([place] Comment on above: Performed By: #### F T3, FT4, 294074, FERR, FE #### [address] [address] Lymphocytes/100 WBC (Bld) 28.4 % Normal 10.0-50.0 [facility] ([place] Comment on above: Performed By: #### F T3, FT4, 299586, FERR, FE #### [address] [address] Monocyte, Absolute 0.5 10 3/mcL Normal 0.2-1.0 [facility] ([place] Comment on above: Performed By: #### F T3, FT4, 398772, FERR, FE #### [address] [address] Monocytes/100 WBC (Bld) 7.9 % Normal 1.7-13.0 [facility] ([place] Comment on above: Performed By: #### F T3, FT4, [id number], FERR, FE #### [address] [address] Neutrophils/100 WBC (Bld) 58.5 % Normal 37.0-80.0 [facility] ([place] Comment on above: Performed By: #### F T3, FT4, 421866, FERR, FE #### [address] [address] .GFRon 11-20-2022 GFR 81 ml/min/1.73sqm Normal [facility] ([place] Comment on above: Result Comment: GFR Population mean for , Non- Americans Ages 20-29 = 116 mL/min/1.73 sq.m. Ages 30-39 = 107 mL/min/1.73 sq.m. Ages 40-49 = 99 mL/min/1.73 sq.m. Ages 50-59 = 93 mL/min/1.73 sq.m. Ages 60-69 = 85 mL/min/1.73 sq.m. Ages 70+ = 75 mL/min/1.73 sq.m. Chronic Kidney Disease: Less than 60 mL/min/1.73 square meters End Stage Renal Disease: Less than 15 mL/min/1.73 square meters Performed By: #### F T3, FT4, 859448, FERR, FE #### [address] [address] GFR Non- 67 ml/min/1.73sqm Normal [facility] ([place] Comment on above: Result Comment: GFR Population mean for , Non- Americans Ages 20-29 = 116 mL/min/1.73 sq.m. Ages 30-39 = 107 mL/min/1.73 sq.m. Ages 40-49 = 99 mL/min/1.73 sq.m. Ages 50-59 = 93 mL/min/1.73 sq.m. Ages 60-69 = 85 mL/min/1.73 sq.m. Ages 70+ = 75 mL/min/1.73 sq.m. Chronic Kidney Disease: Less than 60 mL/min/1.73 square meters End Stage Renal Disease: Less than 15 mL/min/1.73 square meters Performed By: #### F T3, FT4, 245877, FERR, FE #### [address] [address] .NEUABSon 11-20-2022 Neutrophil, Absolute 3.6 10 3/mcL Normal 2.9-6.2 [facility] ([place] Comment on above: Performed By: #### F T3, FT4, 448747, FERR, FE #### [address] [address] A1Con 11-20-2022 HbA1c (Bld) [Mass fraction] 5.9 % Normal 4.3-6.4 [facility] ([place] Comment on above: Performed By: #### F T3, FT4, 296033, FERR, FE #### [address] [address] CBCon 11-20-2022 Erythrocyte distribution width (RBC) [Ratio] 14.6 % High 11.5-14.5 [facility] ([place] Comment on above: Performed By: #### F T3, FT4, 560259, FERR, FE #### [address] [address] Hematocrit (Bld) [Volume fraction] 40.0 % Normal 37.0-47.0 [facility] ([place] Comment on above: Performed By: #### F T3, FT4, [id number], FERR, FE #### [address] [address] Hgb 13.4 G/dL Normal 12.0-16.0 [facility] ([place] Comment on above: Performed By: #### F T3, FT4, [id number], FERR, FE #### [place] [address] MCH (RBC) [Entitic mass] 30.7 pg Normal 27.0-31.2 [facility] ([place] Comment on above: Performed By: #### F T3, FT4, [id number], FERR, FE #### [place] [address] MCHC 33.5 G/dL Normal 33.0-37.0 [facility] [place] Comment on above: Performed By: #### F T3, FT4, [id number], FERR, FE #### [address] [address] MCV (RBC) [Entitic vol] 91.6 fL Normal 80.0-94.0 [facility] ([place] Comment on above: Performed By: #### F T3, FT4, [id number], FERR, FE #### [place] [address] Platelet 164 10 3/mcL Normal 130-400 [facility] [place] Comment on above: Performed By: #### F T3, FT4, [id number], FERR, FE #### [address] [address] Platelet mean volume (Bld) [Entitic vol] 8.3 fL Normal 7.4-10.4 [facility] [place] Comment on above: Performed By: #### F T3, FT4, [id number], FERR, FE #### [address] [address] RBC 4.37 10 6/mcL Normal 4.20-5.40 [facility] [place] Comment on above: Performed By: #### F T3, FT4, 932657, FERR, FE #### [address] [address] WBC 6.2 10 3/mcL Normal 4.6-10.8 [facility] ([place] Comment on above: Performed By: #### F T3, FT4, 352133, FERR, FE #### [address] [address] CMPon 11-20-2022 Albumin Level 3.5 G/dL Normal 3.4-4.8 [facility] ([place] Comment on above: Performed By: #### F T3, FT4, 567229, FERR, FE #### [address] [address] Albumin/Globulin [Mass ratio] 0.9 {ratio} Low 1.1-2.5 [facility] ([place] Comment on above: Performed By: #### F T3, FT4, 299654, FERR, FE #### [address] [address] ALP [Catalytic activity/Vol] 87 U/L Normal 40-135 [facility] ([place] Comment on above: Performed By: #### F T3, FT4, 216108, FERR, FE #### [address] [address] ALT [Catalytic activity/Vol] 25 U/L Normal 14-59 [facility] ([place] Comment on above: Performed By: #### F T3, FT4, 544312, FERR, FE #### [address] [address] AST [Catalytic activity/Vol] 20 U/L Normal 10-40 [facility] ([place] Comment on above: Performed By: #### F T3, FT4, 904595, FERR, FE #### [address] [address] Bili Total 0.7 mg/dL Normal 0.2-1.0 [facility] ([place] Comment on above: Result Comment: Use of this assay is not recommended for patients undergoing treatment with eltrombopag due to the potential for falsely elevated results. Performed By: #### F T3, FT4, 558587, FERR, FE #### [place] [address] BUN/Creatinine Ratio 24 ratio Normal 7-27 [facility] ([place] Comment on above: Performed By: #### F T3, FT4, 903260, FERR, FE #### [place] [id number] Calcium [Mass/Vol] 8.4 mg/dL Normal 8.4-10.2 [facility] ([place]) Comment on above: Performed By: #### F T3, FT4, 598108, FERR, FE #### [place] [address] Chloride [Moles/Vol] 105 mmol/L Normal 98-107 [facility] ([place] Comment on above: Performed By: #### F T3, FT4, 738634, FERR, FE #### [place] [address] CO2 [Moles/Vol] 28 mmol/L Normal 23-31 [facility] ([place] Comment on above: Performed By: #### F T3, FT4, 293060, FERR, FE #### [address] [address] Creatinine [Mass/Vol] 0.83 mg/dL Normal 0.55-1.02 [facility] ([place] Comment on above: Performed By: #### F T3, FT4, 665912, FERR, FE #### [address] [address] Electrolyte Balance 9.0 mEq/L Normal 4.0-15.0 [facility] ([place]) Comment on above: Performed By: #### F T3, FT4, 167074, FERR, FE #### [address] [address] Globulin 3.8 G/dL Normal [facility] ([place] Comment on above: Performed By: #### F T3, FT4, 477696, FERR, FE #### [address] [address] Glucose [Mass/Vol] 96 mg/dL Normal 83-110 [facility] ([place] Comment on above: Performed By: #### F T3, FT4, 303536, FERR, FE #### [address] [address] Potassium [Moles/Vol] 4.2 mmol/L Normal 3.5-5.1 [facility] ([place] Comment on above: Performed By: #### F T3, FT4, 218042, FERR, FE #### [address] [address] Sodium [Moles/Vol] 142 mmol/L Normal 136-145 [facility] ([place] Comment on above: Performed By: #### F T3, FT4, 073375, FERR, FE #### [address] [address] Total Protein 7.3 G/dL Normal 6.4-8.2 [facility] ([place] Comment on above: Performed By: #### F T3, FT4, 226065, FERR, FE #### [address] [address] Urea nitrogen [Mass/Vol] 20 mg/dL High 7-18 [facility] ([place] Comment on above: Performed By: #### F T3, FT4, 635174, FERR, FE #### [address] [address] LABORATORYOrdered By: Kaia Martinez on 11-20-2022 25-hydroxyvitamin D3 [Mass/Vol] 59.4 ng/mL Invalid Interpretation Code AO Chemistry S Comment on above: Interpretive Data: I nterpretive Values Based on Total 25(OH) Vitamin D: Deficient <20 ng/mL Insufficient 20 - <30 ng/mL Sufficient 30-100 ng/mL Cholesterol [Mass/Vol] 245 mg/dL Invalid Interpretation Code 0 - 200 mg/dL AO ADM SS Comment on above: Interpretive Data: C holesterol Reference Interval: Less than 200 Desirable 200-239 Borderline high risk 240 and above High risk Cholesterol in HDL [Mass/Vol] 55 mg/dL Invalid Interpretation Code 40 - 60 mg/dL AO ADM SS Cholesterol in LDL [Mass/Vol] 150 mg/dL Invalid Interpretation Code 0 - 130 mg/dL AO ADM SS Triglyceride [Mass/Vol] 199 mg/dL Invalid Interpretation Code 0 - 150 mg/dL AO ADM SS Comment on above: Interpretive Data: T riglyceride Reference Interval: Less than 150 Normal 150-199 Borderline high risk 200-499 High risk 500 or higher Very high risk LABORATORYOrdered By: SYSTEM SYSTEM on 11-20-2022 Albumin BCP dye [Mass/Vol] 3.5 G/dL Invalid Interpretation Code 3.4 - 4.8 G/dL AO ADM SS Albumin/Globulin [Mass ratio] 0.9 {ratio} Invalid Interpretation Code 1.1 - 2.5 ratio AO ADM SS ALP [Catalytic activity/Vol] 87 U/L Invalid Interpretation Code 40 - 135 U/L AO ADM SS ALT With P-5'-P [Catalytic activity/Vol] 25 U/L Invalid Interpretation Code 14 - 59 U/L AO ADM SS AST With P-5'-P [Catalytic activity/Vol] 20 U/L Invalid Interpretation Code 10 - 40 U/L AO ADM SS Basophil, Absolute 0.0 103/mcL Invalid Interpretation Code 0.0 - 0.2 10^3/mcL AO Workflow SS Basophils/100 WBC (Bld) 0.5 % Invalid Interpretation Code 0.0 - 2.5 % AO Workflow SS Bilirubin [Mass/Vol] 0.7 mg/dL Invalid Interpretation Code 0.2 - 1.0 mg/dL AO ADM SS Comment on above: Interpretive Data: U se of this assay is not recommended for patients undergoing treatment with eltrombopag due to the potential for falsely elevated results. Calcium [Mass/Vol] 8.4 mg/dL Invalid Interpretation Code 8.4 - 10.2 mg/dL AO ADM SS Chloride [Moles/Vol] 105 mmol/L Invalid Interpretation Code 98 - 107 mmol/L AO ADM SS CO2 [Moles/Vol] 28 mmol/L Invalid Interpretation Code 23 - 31 mmol/L AO ADM SS Creatinine [Mass/Vol] 0.83 mg/dL Invalid Interpretation Code 0.55 - 1.02 mg/dL AO ADM SS Electrolyte Balance 9.0 mEq/L Invalid Interpretation Code 4.0 - 15.0 mEq/L AO ADM SS Eosinophil, Absolute 0.3 103/mcL Invalid Interpretation Code 0.0 - 0.4 10^3/mcL AO Workflow SS Eosinophils/100 WBC (Bld) 4.7 % Invalid Interpretation Code 0.0 - 7.0 % AO Workflow SS Erythrocyte distribution width (RBC) [Ratio] 14.6 % Invalid Interpretation Code 11.5 - 14.5 % AO Workflow SS GFR/1.73 sq M.predicted among blacks MDRD (S/P/Bld) [Vol rate/Area] 81 ml/min/1.73sqm Invalid Interpretation Code AO Chemistry S Comment on above: Interpretive Data: GFR Population mean for , Non- Americans Ages 20-29 = 116 mL/min/1.73 sq.m. Ages 30-39 = 107 mL/min/1.73 sq.m. Ages 40-49 = 99 mL/min/1.73 sq.m. Ages 50-59 = 93 mL/min/1.73 sq.m. Ages 60-69 = 85 mL/min/1.73 sq.m. Ages 70+ = 75 mL/min/1.73 sq.m. Chronic Kidney Disease: Less than 60 mL/min/1.73 square meters End Stage Renal Disease: Less than 15 mL/min/1.73 square meters GFR/1.73 sq M.predicted among non-blacks MDRD (S/P/Bld) [Vol rate/Area] 67 ml/min/1.73sqm Invalid Interpretation Code AO Chemistry S Comment on above: Interpretive Data: GFR Population mean for , Non- Americans Ages 20-29 = 116 mL/min/1.73 sq.m. Ages 30-39 = 107 mL/min/1.73 sq.m. Ages 40-49 = 99 mL/min/1.73 sq.m. Ages 50-59 = 93 mL/min/1.73 sq.m. Ages 60-69 = 85 mL/min/1.73 sq.m. Ages 70+ = 75 mL/min/1.73 sq.m. Chronic Kidney Disease: Less than 60 mL/min/1.73 square meters End Stage Renal Disease: Less than 15 mL/min/1.73 square meters Globulin 3.8 G/dL Invalid Interpretation Code AO ADM SS Glucose [Mass/Vol] 96 mg/dL Invalid Interpretation Code 83 - 110 mg/dL AO ADM SS HbA1c (Bld) [Mass fraction] 5.9 % Invalid Interpretation Code 4.3 - 6.4 % AO ADM SS Hematocrit (Bld) [Volume fraction] 40.0 % Invalid Interpretation Code 37.0 - 47.0 % AO Workflow SS Hemoglobin (Bld) [Mass/Vol] 13.4 G/dL Invalid Interpretation Code 12.0 - 16.0 G/dL AO Workflow SS Lymphocyte, Absolute 1.8 103/mcL Invalid Interpretation Code 0.8 - 3.9 10^3/mcL AO Workflow SS Lymphocytes/100 WBC (Bld) 28.4 % Invalid Interpretation Code 10.0 - 50.0 % AO Workflow SS MCH (RBC) [Entitic mass] 30.7 pg Invalid Interpretation Code 27.0 - 31.2 pg AO Workflow SS MCHC 33.5 G/dL Invalid Interpretation Code 33.0 - 37.0 G/dL AO Workflow SS MCV (RBC) [Entitic vol] 91.6 fL Invalid Interpretation Code 80.0 - 94.0 fL AO Workflow SS Monocyte, Absolute 0.5 103/mcL Invalid Interpretation Code 0.2 - 1.0 10^3/mcL AO Workflow SS Monocytes/100 WBC (Bld) 7.9 % Invalid Interpretation Code 1.7 - 13.0 % AO Workflow SS Neutrophil, Absolute 3.6 103/mcL Invalid Interpretation Code 2.9 - 6.2 10^3/mcL AO Workflow SS Neutrophils/100 WBC (Bld) 58.5 % Invalid Interpretation Code 37.0 - 80.0 % AO Workflow SS Platelet mean volume (Bld) [Entitic vol] 8.3 fL Invalid Interpretation Code 7.4 - 10.4 fL AO Workflow SS Platelets (Bld) [#/Vol] 164 103/mcL Invalid Interpretation Code 130 - 400 10^3/mcL AO Workflow SS Potassium [Moles/Vol] 4.2 mmol/L Invalid Interpretation Code 3.5 - 5.1 mmol/L AO ADM SS Protein [Mass/Vol] 7.3 G/dL Invalid Interpretation Code 6.4 - 8.2 G/dL AO ADM SS RBC (Bld) [#/Vol] 4.37 106/mcL Invalid Interpretation Code 4.20 - 5.40 10^6/mcL AO Workflow SS Sodium [Moles/Vol] 142 mmol/L Invalid Interpretation Code 136 - 145 mmol/L AO ADM SS TSH Qn 1.09 m[IU]/L Invalid Interpretation Code 0.36 - 3.74 mcIU/mL AO ADM SS Urea nitrogen [Mass/Vol] 20 mg/dL Invalid Interpretation Code 7 - 18 mg/dL AO ADM SS Urea nitrogen/Creatinine [Mass ratio] 24 ratio Invalid Interpretation Code 7 - 27 ratio AO ADM SS WBC (Bld) [#/Vol] 6.2 103/mcL Invalid Interpretation Code 4.6 - 10.8 10^3/mcL AO Workflow SS LIPIDon 11-20-2022 Cholesterol [Mass/Vol] 245 mg/dL High 0-200 [facility] ([place]) Comment on above: Result Comment: Chol esterol Reference Interval: Less than 200 Desirable 200-239 Borderline high risk 240 and above High risk Performed By: #### F T3, FT4, [id number], FERR, FE #### [address] [address] Cholesterol in HDL [Mass/Vol] 55 mg/dL Normal 40-60 [facility] ([place] Comment on above: Performed By: #### F T3, FT4, 709802, FERR, FE #### [address] [address] Cholesterol in LDL [Mass/Vol] 150 mg/dL High 0-130 [facility] ([place] Comment on above: Performed By: #### F T3, FT4, 890905, FERR, FE #### [address] [address] Triglyceride [Mass/Vol] 199 mg/dL High 0-150 [facility] ([place] Comment on above: Result Comment: Trig lyceride Reference Interval: Less than 150 Normal 150-199 Borderline high risk 200-499 High risk 500 or higher Very high risk Performed By: #### F T3, FT4, 438501, FERR, FE #### [place] [address] [place], [place] [address] TSHon 11-20-2022 TSH Qn 1.09 m[IU]/L Normal 0.36-3.74 [facility] ([place] Comment on above: Performed By: #### F T3, FT4, 395250, LESA, FE #### Ashely Moon [address] [place], [place] [address] VIDHon 11-20-2022 Vit. D 25-Hydroxy 59.4 ng/mL Normal [facility] ([place] Comment on above: Result Comment: Inte rpretive Values Based on Total 25(OH) Vitamin D: Deficient <20 ng/mL Insufficient 20 - <30 ng/mL Sufficient 30-100 ng/mL Performed By: #### F T3, FT4, 694775, LESA, FE #### Ashe[address] Moon [address] [place], [place] [address] Order Reconciliationon 10-03 Order Reconciliation Page 1 Discharge Reconciliation Document Reconciliation Type: Discharge requested on behalf of Yodit Garcia (Physician) done by Yodit Garcia) Discharge - Reconciliation: 03-Oct-2022 12:56 by: Yodit Garcia) Home Medications EnteredHOME MEDICATIONS AT DISCHARGE DateReconciliation Comment/ Additional Information Archana 180 mg oral tablet 1 tab(s) orally once a day 17-Sep-2022 07:07 Archana 180 mg oral tablet 1 tab(s) orally once a day 17-Sep-2022 07:07 Archana 180 mg oral tablet is continued as Archana 180 mg oral tablet [place] Thyroid 60 mg oral tablet 1 tab(s) orally once a day 17-Sep-2022 07:08 [place] Thyroid 60 mg oral tablet 1 tab(s) orally once a day 17-Sep-2022 07:08 [place] Thyroid 60 mg oral tablet is continued as [place] Thyroid 60 mg oral tablet fluticasone 50 mcg/inh nasal spray 1 spray(s) nasal once a day, As Needed - for allergy symptoms 17-Sep-2022 07:08 fluticasone 50 mcg/inh nasal spray 1 spray(s) nasal once a day, As Needed - for allergy symptoms 17-Sep-2022 07:08 fluticasone 50 mcg/inh nasal spray is continued as fluticasone 50 mcg/inh nasal spray lisinopril 5 mg oral tablet 1 tab(s) orally once a day 17-Sep-2022 07:06 lisinopril 5 mg oral tablet 1 tab(s) orally once a day 17-Sep-2022 07:06 lisinopril 5 mg oral tablet is continued as lisinopril 5 mg oral tablet magnesium oxide 500 mg oral tablet 1 tab(s) orally once a day 17-Sep-2022 07:08 magnesium oxide 500 mg oral tablet 1 tab(s) orally once a day 17-Sep-2022 07:08 magnesium oxide 500 mg oral tablet is continued as magnesium oxide 500 mg oral tablet Multiple Vitamins oral tablet 1 tab(s) orally once a day 17-Sep-2022 07:06 Multiple Vitamins oral tablet 1 tab(s) orally once a day 17-Sep-2022 07:06 Multiple Vitamins oral tablet is continued as Multiple Vitamins oral tablet Probiotic Formula oral capsule 1 cap(s) orally once a day 17-Sep-2022 07:08 Probiotic Formula oral capsule 1 cap(s) orally once a day 17-Sep-2022 07:08 Probiotic Formula oral capsule is continued as Probiotic Formula oral capsule Vitamin D3 400 intl units (10 mcg) oral tablet 1 tab(s) orally once a day 17-Sep-2022 07:08 Vitamin D3 400 intl units (10 mcg) oral tablet 1 tab(s) orally once a day 17-Sep-2022 07:08 Vitamin D3 400 intl units (10 mcg) oral tablet is continued as Vitamin D3 400 intl units (10 mcg) oral tablet Home Medications Added During Discharge Reconciliation Additional Patient Instructions Follow printed discharge instructions Discharge Discharge Diagnosis< 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 Do not remove any midline, if present, without an order from the provider. Discharge Instructions - PHR After your discharge from the hospital, two Summary of Care Documents will be available online in your Personal Health Record (PHR). 1.Consolidated-Clinical Document Architecture (C-CDA) Patient Discharge Summary This document is a summary of your hospital stay to be kept for your reference.2.C-CDA Visit Summary This document is a summary of your hospital stay to be shared with your follow-up providers (doctor, medical office receptionist assistant, physical therapist, etc.). Post Procedure Discharge Criteria Criteria: Easily arousable / responding appropriately; Significant complications are absent; SpO2 = or > 92%, or if SpO2 < 92%, maintains within 2% of baseline; Vital signs +/- 20% of preprocedure status; Ambulates without dizziness / age appropriate activity and ambulatory status returns to pre-procedure baseline. 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 Do not remove any midline, if present, without an order from the provider. Discharge Instructions - PHR After your discharge from the hospital, two Summary of Care Documents will be available online in your Personal Health Record (PHR). 1.Consolidated-Clinical Document Architecture (C-CDA) Patient Discharge Summary This document is a summary of your hospital stay to be kept for your reference.2.C-CDA Visit Summary This document is a summary of your hospital stay to be shared with your follow-up providers (doctor, medical office receptionist assistant, physical therapist, etc.). fluticasone 50 mcg/inh nasal spray 1 spray(s) nasal once a day, As Needed - for (more content not included)... [facility] Patient Profile - Preop v3on 09-26-2022 Patient Profile - Preop v3 Patient Profile - Preop: Initial Info: Patient DemographicsName: PRACHI PIERRE Date: 1945 Address: [facility] [address] [place] [address] Primary Phone [phone] Call Attemptedattempt 1 Instructions Givenappropriate clothing, bring responsible adult as the otr company driver (procedure may be cancelled if no otr company driver), center location, insurance information Prep Instructions Reviewedyes Instructed to Have No Fluids Aftermidnight How to be AddressedSandy Spoken Language PreferredEnglish Source of Informationpatient Stated Reason for Admissionleft eye cataract surgery Primary Contact Name and NumberEdward [phone] Medications Brought to Hospitalno General Health: Weight in kg92.2 kilogram(s) Weight in ryi851.2 pound(s) Weight Methodactual (measured) Scale Typestanding Height in feet5 feet Height in inches3.98 inch(es) Height in cm162.5 centimeter(s) Height Methodstated BMI (kg/m2)34.915 square meter Patient or Family Member Reaction to Anesthesiano previous reaction; no previous family member reaction Blood Avoidance/Restrictionsnone Previous Transfusion Reactionnot applicable Health Mgmt: Symptoms/Conditions Managed at Homeendocrine Endocrine Symptoms/Conditionsthyroid disease Barriers to Managing Healthnone Relationship/Environ: Lives Withspouse Living Arrangementscondominium Resource/Environmental Concernsnone Anticipated Transition [facility] Anticipated at Transitionnone Tobacco Use: Tobacco Useno Pre-op Checklist: Arrival [id number] Arrival Time12:54 Procedure Typeleft cataract NPOyes Last Food [id number] 22:00 Last Clear Fluid [id number] 22:00 ID Band On Patientpatient ID (name), allergy Consent Signedyes H&P Completeyes Anesthesia Assessment Completedyes EKG Performednot ordered Chest X-Ray Performednot ordered Preop Antibioticsnot ordered Chlorhexadine Bath Givennot applicable Nasal Antiseptic Appliednot applicable Soap and Water Bath the Night Before Surgeryyes Hair Washed with Shampoonot applicable Surgical Site Infection Preventionyes Pain Scales and Managementyes Additional Information: Information Review: Allergies, Home Meds and Significant Events have been Reviewed and Verified with Patient/Familyyes Allergy, Intolerance, Adverse Event: Allergies: penicillin: Drug, Rash, Active sulfa drugs: Drug Category, Itching, Active Intolerances: tramadol: Drug, Confusion, Active carbamazepine: Drug, Fatigue, Active Electronic Signatures: Luci Terrazas) (Signed 03-Oct-2022 12:55) Authored: Initial Info, General Health, Pre-op Checklist, Additional Information Saadia Haney) (Signed 26-Sep-2022 11:11) Authored: Initial Info, General Health, Health Mgmt, Relationship/Environ, Tobacco Use, Pre-op Checklist, Additional Information Last Updated: 03-Oct-2022 12:55 by Luci Terrazas (RN) [facility] Order Reconciliationon 09-19 Order Reconciliation Page 1 Discharge Reconciliation Document Reconciliation Type: Discharge requested on behalf of Yodit Garcia (Physician) done by Yodit Garcia) Discharge - Reconciliation: 19-Sep-2022 09:42 by: Yodit Garcia) Home Medications EnteredHOME MEDICATIONS AT DISCHARGE DateReconciliation Comment/ Additional Information Archana 180 mg oral tablet 1 tab(s) orally once a day 17-Sep-2022 07:07 Archana 180 mg oral tablet 1 tab(s) orally once a day 17-Sep-2022 07:07 Archana 180 mg oral tablet is continued as Archana 180 mg oral tablet [place] Thyroid 60 mg oral tablet 1 tab(s) orally once a day 17-Sep-2022 07:08 [place] Thyroid 60 mg oral tablet 1 tab(s) orally once a day 17-Sep-2022 07:08 [place] Thyroid 60 mg oral tablet is continued as [place] Thyroid 60 mg oral tablet fluticasone 50 mcg/inh nasal spray 1 spray(s) nasal once a day, As Needed - for allergy symptoms 17-Sep-2022 07:08 fluticasone 50 mcg/inh nasal spray 1 spray(s) nasal once a day, As Needed - for allergy symptoms 17-Sep-2022 07:08 fluticasone 50 mcg/inh nasal spray is continued as fluticasone 50 mcg/inh nasal spray lisinopril 5 mg oral tablet 1 tab(s) orally once a day 17-Sep-2022 07:06 lisinopril 5 mg oral tablet 1 tab(s) orally once a day 17-Sep-2022 07:06 lisinopril 5 mg oral tablet is continued as lisinopril 5 mg oral tablet magnesium oxide 500 mg oral tablet 1 tab(s) orally once a day 17-Sep-2022 07:08 magnesium oxide 500 mg oral tablet 1 tab(s) orally once a day 17-Sep-2022 07:08 magnesium oxide 500 mg oral tablet is continued as magnesium oxide 500 mg oral tablet Multiple Vitamins oral tablet 1 tab(s) orally once a day 17-Sep-2022 07:06 Multiple Vitamins oral tablet 1 tab(s) orally once a day 17-Sep-2022 07:06 Multiple Vitamins oral tablet is continued as Multiple Vitamins oral tablet Probiotic Formula oral capsule 1 cap(s) orally once a day 17-Sep-2022 07:08 Probiotic Formula oral capsule 1 cap(s) orally once a day 17-Sep-2022 07:08 Probiotic Formula oral capsule is continued as Probiotic Formula oral capsule Vitamin D3 400 intl units (10 mcg) oral tablet 1 tab(s) orally once a day 17-Sep-2022 07:08 Vitamin D3 400 intl units (10 mcg) oral tablet 1 tab(s) orally once a day 17-Sep-2022 07:08 Vitamin D3 400 intl units (10 mcg) oral tablet is continued as Vitamin D3 400 intl units (10 mcg) oral tablet Home Medications Added During Discharge Reconciliation Additional Patient Instructions Follow printed discharge instructions Discharge Discharge Diagnosis< H25.811 Combined forms of age-related cataract of right eye Discharge Provider, Yodit Garcia Discharge Disposition : .Home Condition at Discharge: Satisfactory Discharge Communication Instructions for Nursing Only: Remove IV prior to discharge from hospital. Do not remove any midline, if present, without an order from the provider. Discharge Instructions - PHR After your discharge from the hospital, two Summary of Care Documents will be available online in your Personal Health Record (PHR). 1.Consolidated-Clinical Document Architecture (C-CDA) Patient Discharge Summary This document is a summary of your hospital stay to be kept for your reference.2.C-CDA Visit Summary This document is a summary of your hospital stay to be shared with your follow-up providers (doctor, medical office receptionist assistant, physical therapist, etc.). Post Procedure Discharge Criteria Criteria: Easily arousable / responding appropriately; Significant complications are absent; SpO2 = or > 92%, or if SpO2 < 92%, maintains within 2% of baseline; Vital signs +/- 20% of preprocedure status; Ambulates without dizziness / age appropriate activity and ambulatory status returns to pre-procedure baseline. All Active Home Medications at time of Discharge Reconciliation: 19-Sep-2022 09:42 Additional Patient Instructions Follow printed discharge instructions Archana 180 mg oral tablet 1 tab(s) orally once a day [place] Thyroid 60 mg oral tablet 1 tab(s) orally once a day Discharge Discharge Diagnosis< H25.811 Combined forms of age-related cataract of right eye Discharge Provider, Yodit Garcia Discharge Disposition : .Home Condition at Discharge: Satisfactory Discharge Communication Instructions for Nursing Only: Remove IV prior to discharge from hospital. Do not remove any midline, if present, without an order from the provider. Discharge Instructions - PHR After your discharge from the hospital, two Summary of Care Documents will be available online in your Personal Health Record (PHR). 1.Consolidated-Clinical Document Architecture (C-CDA) Patient Discharge Summary This document is a summary of your hospital stay to be kept for your reference.2.C-CDA Visit Summary This document is a summary of your hospital stay to be shared with your follow-up providers (doctor, medical office receptionist assistant, physical therapist, etc.). fluticasone 50 mcg/inh nasal spray 1 spray(s) nasal once a day, As Needed (more content not included)... 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 (procedure may be cancelled if no otr company driver), center location, insurance information Prep Instructions Reviewedyes Instructed to Have No Fluids Aftermidnight How to be AddressedSandy Spoken Language PreferredEnglish Source of Informationpatient Stated Reason for AdmissionR cataract Primary Contact Name and NumberEdward [phone] Medications Brought to Hospitalno General Health: Weight in kg92.7 kilogram(s) Weight in bsd920.3 pound(s) Weight Methodactual (measured) Scale Typestanding Height in feet5 feet Height in inches4 inch(es) Height in cm162.5 centimeter(s) Height Methodstated BMI (kg/m2)35.105 square meter Patient or Family Member Reaction to Anesthesiano previous reaction; no previous family member reaction Blood Avoidance/Restrictionsnone Previous Transfusion Reactionnot applicable Health Mgmt: Symptoms/Conditions Managed at Homeendocrine Endocrine Symptoms/Conditionsthyroid disease Barriers to Managing Healthnone Relationship/Environ: Lives Withspouse Living Arrangementscondominium Resource/Environmental Concernsnone Anticipated Transition [facility] Anticipated at Transitionnone Tobacco Use: Tobacco Useno Pre-op Checklist: Arrival [id number] Arrival Time09:38 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 Last Food [id number] 22:00 Last Clear Fluid [id number] 22:00 ID Band On Patientpatient ID (name), allergy Consent Signedyes H&P Completeyes Anesthesia Assessment Completedyes EKG Performednot ordered Chest X-Ray Performednot ordered Preop Antibioticsnot ordered Chlorhexadine Bath Givennot applicable Nasal Antiseptic Appliednot applicable Soap and Water Bath the Night Before Surgeryyes Hair Washed with Shampoonot applicable Surgical Site Infection Preventionyes Pain Scales and Managementyes Additional Information: Information Review: Allergies, Home Meds and Significant Events have been Reviewed and Verified with Patient/Familyyes Allergy, Intolerance, Adverse Event: Allergies: penicillin: Drug, Rash, Active sulfa drugs: Drug Category, Itching, Active Intolerances: tramadol: Drug, Confusion, Active carbamazepine: Drug, Fatigue, Active Problem List: Medical History: Back pain: Catalog Name: Dorsalgia, unspecified AMARI on CPAP: Catalog Name: Obstructive sleep apnea (adult) (pediatric) Hypothyroidism: Catalog Name: Hypothyroidism, unspecified Hypertension: Catalog Name: Essential (primary) hypertension Surg History: History of laparoscopic cholecystectomy: Catalog Name: Acquired absence of other specified parts of digestive tract History of hernia repair: Catalog Name: Other specified postprocedural states Skin cyst: Catalog Name: Follicular cyst of the skin and subcutaneous tissue, unspecified History of anterior colporrhaphy: Catalog Name: Other specified postprocedural states History of hysterectomy: Catalog Name: Acquired absence of both cervix and uterus History of knee replacement: Catalog Name: Presence of unspecified artificial knee joint Electronic Signatures: Detsiny Soriano (LALO) (Signed 19-Sep-2022 10:05) Authored: Initial Info, General Health, Health Mgmt, Relationship/Environ, Pre-op Checklist, Additional Information Saadia HaneyRN) (Signed 17-Sep-2022 07:13) Authored: Initial Info, General Health, Tobacco Use, Additional Information Last Updated: 19-Sep-2022 10:05 by Destiny Soriano) [facility] [place]Ordered By: SYSTEM SYSTEM on 09-11-2022 Calcium [Mass/Vol] 8.9 mg/dL Invalid Interpretation Code 8.4 - 10.2 mg/dL AO ADM SS Chloride [Moles/Vol] 103 mmol/L Invalid Interpretation Code 98 - 107 mmol/L AO ADM SS CO2 [Moles/Vol] 27 mmol/L Invalid Interpretation Code 23 - 31 mmol/L AO ADM SS Creatinine [Mass/Vol] 0.88 mg/dL Invalid Interpretation Code 0.55 - 1.02 mg/dL AO ADM SS Electrolyte Balance 12.0 mEq/L Invalid Interpretation Code 4.0 - 15.0 mEq/L AO ADM SS GFR/1.73 sq M.predicted among blacks MDRD (S/P/Bld) [Vol rate/Area] 76 ml/min/1.73sqm Invalid Interpretation Code AO Chemistry S GFR/1.73 sq M.predicted among non-blacks MDRD (S/P/Bld) [Vol rate/Area] 63 ml/min/1.73sqm Invalid Interpretation Code AO Chemistry S Glucose [Mass/Vol] 106 mg/dL Invalid Interpretation Code 83 - 110 mg/dL AO ADM SS Potassium [Moles/Vol] 4.2 mmol/L Invalid Interpretation Code 3.5 - 5.1 mmol/L AO ADM SS Sodium [Moles/Vol] 142 mmol/L Invalid Interpretation Code 136 - 145 mmol/L AO ADM SS Urea nitrogen [Mass/Vol] 22 mg/dL Invalid Interpretation Code 7 - 18 mg/dL AO ADM SS Urea nitrogen/Creatinine [Mass ratio] 25 ratio Invalid Interpretation Code 7 - 27 ratio AO ADM SS LABORATORYOrdered By: SYSTEM SYSTEM on 05-27-2022 Albumin BCP dye [Mass/Vol] 3.5 G/dL Invalid Interpretation Code 3.4 - 4.8 G/dL AO ADM SS Albumin/Globulin [Mass ratio] 1.0 {ratio} Invalid Interpretation Code 1.1 - 2.5 ratio AO ADM SS ALP [Catalytic activity/Vol] 105 U/L Invalid Interpretation Code 40 - 135 U/L AO ADM SS ALT With P-5'-P [Catalytic activity/Vol] 19 U/L Invalid Interpretation Code 14 - 59 U/L AO ADM SS AST With P-5'-P [Catalytic activity/Vol] 21 U/L Invalid Interpretation Code 10 - 40 U/L AO ADM SS Bilirubin [Mass/Vol] 0.6 mg/dL Invalid Interpretation Code 0.2 - 1.0 mg/dL AO ADM SS Calcium [Mass/Vol] 8.5 mg/dL Invalid Interpretation Code 8.4 - 10.2 mg/dL AO ADM SS Chloride [Moles/Vol] 105 mmol/L Invalid Interpretation Code 98 - 107 mmol/L AO ADM SS CO2 [Moles/Vol] 29 mmol/L Invalid Interpretation Code 23 - 31 mmol/L AO ADM SS Creatinine [Mass/Vol] 0.86 mg/dL Invalid Interpretation Code 0.55 - 1.02 mg/dL AO ADM SS Electrolyte Balance 7.0 mEq/L Invalid Interpretation Code 4.0 - 15.0 mEq/L AO ADM SS GFR 78 ml/min/1.73sqm Invalid Interpretation Code AO Chemistry S GFR Non- 64 ml/min/1.73sqm Invalid Interpretation Code AO Chemistry S Globulin 3.6 G/dL Invalid Interpretation Code AO ADM SS Glucose [Mass/Vol] 101 mg/dL Invalid Interpretation Code 83 - 110 mg/dL AO ADM SS HbA1c (Bld) [Mass fraction] 6.0 % Invalid Interpretation Code 4.3 - 6.4 % AO ADM SS Potassium [Moles/Vol] 4.2 mmol/L Invalid Interpretation Code 3.5 - 5.1 mmol/L AO ADM SS Protein [Mass/Vol] 7.1 G/dL Invalid Interpretation Code 6.4 - 8.2 G/dL AO ADM SS Sodium [Moles/Vol] 141 mmol/L Invalid Interpretation Code 136 - 145 mmol/L AO ADM SS TSH Qn 1.24 m[IU]/L Invalid Interpretation Code 0.36 - 3.74 mcIU/mL AO ADM SS Urea nitrogen [Mass/Vol] 21 mg/dL Invalid Interpretation Code 7 - 18 mg/dL AO ADM SS Urea nitrogen/Creatinine [Mass ratio] 24 ratio Invalid Interpretation Code 7 - 27 ratio AO ADM SS Vit. D 25-Hydroxy 67.7 ng/mL Invalid Interpretation Code AO ADM SS LABORATORYOrdered By: Prachi Mejia on 05-27-2022 Basophil, Absolute 0.0 103/mcL Invalid Interpretation Code 0.0 - 0.2 10^3/mcL AO Workflow SS Basophils/100 WBC (Bld) 0.6 % Invalid Interpretation Code 0.0 - 2.5 % AO Workflow SS Eosinophil, Absolute 0.3 103/mcL Invalid Interpretation Code 0.0 - 0.4 10^3/mcL AO Workflow SS Eosinophils/100 WBC (Bld) 4.9 % Invalid Interpretation Code 0.0 - 7.0 % AO Workflow SS Erythrocyte distribution width (RBC) [Ratio] 14.3 % Invalid Interpretation Code 11.5 - 14.5 % AO Workflow SS Hematocrit (Bld) [Volume fraction] 39.7 % Invalid Interpretation Code 37.0 - 47.0 % AO Workflow SS Hemoglobin (Bld) [Mass/Vol] 13.2 G/dL Invalid Interpretation Code 12.0 - 16.0 G/dL AO Workflow SS Lymphocyte, Absolute 1.7 103/mcL Invalid Interpretation Code 0.8 - 3.9 10^3/mcL AO Workflow SS Lymphocytes/100 WBC (Bld) 31.4 % Invalid Interpretation Code 10.0 - 50.0 % AO Workflow SS MCH (RBC) [Entitic mass] 30.3 pg Invalid Interpretation Code 27.0 - 31.2 pg AO Workflow SS MCHC 33.3 G/dL Invalid Interpretation Code 33.0 - 37.0 G/dL AO Workflow SS MCV (RBC) [Entitic vol] 90.9 fL Invalid Interpretation Code 80.0 - 94.0 fL AO Workflow SS Monocyte, Absolute 0.4 103/mcL Invalid Interpretation Code 0.2 - 1.0 10^3/mcL AO Workflow SS Monocytes/100 WBC (Bld) 7.7 % Invalid Interpretation Code 1.7 - 13.0 % AO Workflow SS Neutrophil, Absolute 3.0 103/mcL Invalid Interpretation Code 2.9 - 6.2 10^3/mcL AO Workflow SS Neutrophils/100 WBC (Bld) 55.4 % Invalid Interpretation Code 37.0 - 80.0 % AO Workflow SS Platelet mean volume (Bld) [Entitic vol] 8.5 fL Invalid Interpretation Code 7.4 - 10.4 fL AO Workflow SS Platelets (Bld) [#/Vol] 178 103/mcL Invalid Interpretation Code 130 - 400 10^3/mcL AO Workflow SS RBC (Bld) [#/Vol] 4.36 106/mcL Invalid Interpretation Code 4.20 - 5.40 10^6/mcL AO Workflow SS WBC (Bld) [#/Vol] 5.4 103/mcL Invalid Interpretation Code 4.6 - 10.8 10^3/mcL AO Workflow SS LABORATORYOrdered By: Kaia Martinez on 05-27-2022 Cholesterol [Mass/Vol] 196 mg/dL Invalid Interpretation Code 0 - 200 mg/dL AO ADM SS Cholesterol in HDL [Mass/Vol] 60 mg/dL Invalid Interpretation Code 40 - 60 mg/dL AO ADM SS Cholesterol in LDL [Mass/Vol] 119 mg/dL Invalid Interpretation Code 0 - 130 mg/dL AO ADM SS Triglyceride [Mass/Vol] 83 mg/dL Invalid Interpretation Code 0 - 150 mg/dL AO ADM SS LABORATORYOrdered By: Kaia Martinez on 01-02-2022 Basophil, Absolute 0.0 103/mcL Invalid Interpretation Code 0.0 - 0.2 10^3/mcL AO Workflow SS Basophils/100 WBC (Bld) 0.1 % Invalid Interpretation Code 0.0 - 2.5 % AO Workflow SS Calcium [Mass/Vol] 8.6 mg/dL Invalid Interpretation Code 8.4 - 10.2 mg/dL AO ADM SS Chloride [Moles/Vol] 101 mmol/L Invalid Interpretation Code 98 - 107 mmol/L AO ADM SS CO2 [Moles/Vol] 29 mmol/L Invalid Interpretation Code 23 - 31 mmol/L AO ADM SS Creatinine [Mass/Vol] 0.89 mg/dL Invalid Interpretation Code 0.55 - 1.02 mg/dL AO ADM SS Electrolyte Balance 6.0 mEq/L Invalid Interpretation Code 4.0 - 15.0 mEq/L AO ADM SS Eosinophil, Absolute 0.0 103/mcL Invalid Interpretation Code 0.0 - 0.4 10^3/mcL AO Workflow SS Eosinophils/100 WBC (Bld) 0.0 % Invalid Interpretation Code 0.0 - 7.0 % AO Workflow SS Erythrocyte distribution width (RBC) [Ratio] 14.1 % Invalid Interpretation Code 11.5 - 14.5 % AO Workflow SS Glucose [Mass/Vol] 147 mg/dL Invalid Interpretation Code 83 - 110 mg/dL AO ADM SS Hematocrit (Bld) [Volume fraction] 36.8 % Invalid Interpretation Code 37.0 - 47.0 % AO Workflow SS Hemoglobin (Bld) [Mass/Vol] 12.3 G/dL Invalid Interpretation Code 12.0 - 16.0 G/dL AO Workflow SS Lymphocyte, Absolute 1.0 103/mcL Invalid Interpretation Code 0.8 - 3.9 10^3/mcL AO Workflow SS Lymphocytes/100 WBC (Bld) 7.1 % Invalid Interpretation Code 10.0 - 50.0 % AO Workflow SS MCH (RBC) [Entitic mass] 30.6 pg Invalid Interpretation Code 27.0 - 31.2 pg AO Workflow SS MCHC 33.4 G/dL Invalid Interpretation Code 33.0 - 37.0 G/dL AO Workflow SS MCV (RBC) [Entitic vol] 91.4 fL Invalid Interpretation Code 80.0 - 94.0 fL AO Workflow SS Monocyte, Absolute 0.9 103/mcL Invalid Interpretation Code 0.2 - 1.0 10^3/mcL AO Workflow SS Monocytes/100 WBC (Bld) 6.1 % Invalid Interpretation Code 1.7 - 13.0 % AO Workflow SS Neutrophil, Absolute 12.4 103/mcL Invalid Interpretation Code 2.9 - 6.2 10^3/mcL AO Workflow SS Neutrophils/100 WBC (Bld) 86.7 % Invalid Interpretation Code 37.0 - 80.0 % AO Workflow SS Platelet mean volume (Bld) [Entitic vol] 8.5 fL Invalid Interpretation Code 7.4 - 10.4 fL AO Workflow SS Platelets (Bld) [#/Vol] 172 103/mcL Invalid Interpretation Code 130 - 400 10^3/mcL AO Workflow SS Potassium [Moles/Vol] 4.3 mmol/L Invalid Interpretation Code 3.5 - 5.1 mmol/L AO ADM SS RBC (Bld) [#/Vol] 4.02 106/mcL Invalid Interpretation Code 4.20 - 5.40 10^6/mcL AO Workflow SS Sodium [Moles/Vol] 136 mmol/L Invalid Interpretation Code 136 - 145 mmol/L AO ADM SS Urea nitrogen [Mass/Vol] 24 mg/dL Invalid Interpretation Code 7 - 18 mg/dL AO ADM SS Urea nitrogen/Creatinine [Mass ratio] 27 ratio Invalid Interpretation Code 7 - 27 ratio AO ADM SS WBC (Bld) [#/Vol] 14.3 103/mcL Invalid Interpretation Code 4.6 - 10.8 10^3/mcL AO Workflow SS LABORATORYOrdered By: SYSTEM SYSTEM on 01-02-2022 GFR 75 ml/min/1.73sqm Invalid Interpretation Code AO Chemistry S GFR Non- 62 ml/min/1.73sqm Invalid Interpretation Code AO Chemistry S LABORATORYOrdered By: Prachi Mejia on 01-01-2022 ABO/Rh Interp Positive Invalid Interpretation Code AO BB SS Antibody Screen Gel Negative ABSC (01/01/22 8:13 AM) Invalid Interpretation Code AO BB SS LABORATORYOrdered By: Connor Uriostegui on 01-01-2022 Glucose [Mass/Vol] 106 mg/dL Invalid Interpretation Code 82 - 115 mg/dL [facility] Work Phone: LABORATORYOrdered By: Ni Moody on 12-21-2021 ABO/Rh Interp Positive Invalid Interpretation Code AO BB SS Antibody Screen Gel Negative ABSC (12/21/21 10:40 AM) Invalid Interpretation Code AO BB SS aPTT Coag (Bld) [Time] 31.0 s Invalid Interpretation Code 24.1 - 34.9 seconds AO Coag SS Heparin dose (APTT) None Invalid Interpretation Code AO Coag SS INR Coag (PPP) [Relative time] 1.1 {INR} Invalid Interpretation Code 0.9 - 1.2 ratio AO Coag SS PT Coag (PPP) [Time] 12.5 s Invalid Interpretation Code 9.7 - 13.9 seconds AO Coag SS LABORATORYOrdered By: Yadira Vaughn on 12-21-2021 Albumin BCP dye [Mass/Vol] 3.4 G/dL Invalid Interpretation Code 3.4 - 4.8 G/dL AO ADM SS Calcium [Mass/Vol] 8.5 mg/dL Invalid Interpretation Code 8.4 - 10.2 mg/dL AO ADM SS Chloride [Moles/Vol] 103 mmol/L Invalid Interpretation Code 98 - 107 mmol/L AO ADM SS CO2 [Moles/Vol] 27 mmol/L Invalid Interpretation Code 23 - 31 mmol/L AO ADM SS Creatinine [Mass/Vol] 0.79 mg/dL Invalid Interpretation Code 0.55 - 1.02 mg/dL AO ADM SS Electrolyte Balance 10.0 mEq/L Invalid Interpretation Code 4.0 - 15.0 mEq/L AO ADM SS Glucose [Mass/Vol] 83 mg/dL Invalid Interpretation Code 83 - 110 mg/dL AO ADM SS Potassium [Moles/Vol] 4.1 mmol/L Invalid Interpretation Code 3.5 - 5.1 mmol/L AO ADM SS Sodium [Moles/Vol] 140 mmol/L Invalid Interpretation Code 136 - 145 mmol/L AO ADM SS Urea nitrogen [Mass/Vol] 22 mg/dL Invalid Interpretation Code 7 - 18 mg/dL AO ADM SS Urea nitrogen/Creatinine [Mass ratio] 28 ratio Invalid Interpretation Code 7 - 27 ratio AO ADM SS LABORATORYOrdered By: Cherry Callahan on 12-21-2021 Basophil, Absolute 0.0 103/mcL Invalid Interpretation Code 0.0 - 0.2 10^3/mcL AO Workflow SS Basophils/100 WBC (Bld) 0.9 % Invalid Interpretation Code 0.0 - 2.5 % AO Workflow SS Eosinophil, Absolute 0.2 103/mcL Invalid Interpretation Code 0.0 - 0.4 10^3/mcL AO Workflow SS Eosinophils/100 WBC (Bld) 3.7 % Invalid Interpretation Code 0.0 - 7.0 % AO Workflow SS Erythrocyte distribution width (RBC) [Ratio] 13.9 % Invalid Interpretation Code 11.5 - 14.5 % AO Workflow SS Hematocrit (Bld) [Volume fraction] 39.8 % Invalid Interpretation Code 37.0 - 47.0 % AO Workflow SS Hemoglobin (Bld) [Mass/Vol] 13.5 G/dL Invalid Interpretation Code 12.0 - 16.0 G/dL AO Workflow SS Lymphocyte, Absolute 1.6 103/mcL Invalid Interpretation Code 0.8 - 3.9 10^3/mcL AO Workflow SS Lymphocytes/100 WBC (Bld) 29.5 % Invalid Interpretation Code 10.0 - 50.0 % AO Workflow SS MCH (RBC) [Entitic mass] 30.7 pg Invalid Interpretation Code 27.0 - 31.2 pg AO Workflow SS MCHC 33.9 G/dL Invalid Interpretation Code 33.0 - 37.0 G/dL AO Workflow SS MCV (RBC) [Entitic vol] 90.5 fL Invalid Interpretation Code 80.0 - 94.0 fL AO Workflow SS Monocyte, Absolute 0.5 103/mcL Invalid Interpretation Code 0.2 - 1.0 10^3/mcL AO Workflow SS Monocytes/100 WBC (Bld) 9.4 % Invalid Interpretation Code 1.7 - 13.0 % AO Workflow SS Neutrophil, Absolute 3.1 103/mcL Invalid Interpretation Code 2.9 - 6.2 10^3/mcL AO Workflow SS Neutrophils/100 WBC (Bld) 56.5 % Invalid Interpretation Code 37.0 - 80.0 % AO Workflow SS Platelet mean volume (Bld) [Entitic vol] 9.1 fL Invalid Interpretation Code 7.4 - 10.4 fL AO Workflow SS Platelets (Bld) [#/Vol] 181 103/mcL Invalid Interpretation Code 130 - 400 10^3/mcL AO Workflow SS RBC (Bld) [#/Vol] 4.40 106/mcL Invalid Interpretation Code 4.20 - 5.40 10^6/mcL AO Workflow SS WBC (Bld) [#/Vol] 5.4 103/mcL Invalid Interpretation Code 4.6 - 10.8 10^3/mcL AO Workflow SS LABORATORYOrdered By: SYSTEM SYSTEM on 12-21-2021 GFR 86 ml/min/1.73sqm Invalid Interpretation Code AO Chemistry S GFR Non- 71 ml/min/1.73sqm Invalid Interpretation Code AO Chemistry S LABORATORYOrdered By: Harika Flores on 12-21-2021 HbA1c (Bld) [Mass fraction] 5.8 % Invalid Interpretation Code 4.3 - 6.4 % AO ADM SS LABORATORYOrdered By: Rito Hammond on 11-27-2021 Albumin BCP dye [Mass/Vol] 3.5 G/dL Invalid Interpretation Code 3.4 - 4.8 G/dL AO ADM SS Albumin/Globulin [Mass ratio] 1.0 {ratio} Invalid Interpretation Code 1.1 - 2.5 ratio AO ADM SS ALP [Catalytic activity/Vol] 100 U/L Invalid Interpretation Code 40 - 135 U/L AO ADM SS ALT With P-5'-P [Catalytic activity/Vol] 19 U/L Invalid Interpretation Code 14 - 59 U/L AO ADM SS AST With P-5'-P [Catalytic activity/Vol] 15 U/L Invalid Interpretation Code 10 - 40 U/L AO ADM SS Bilirubin [Mass/Vol] 0.8 mg/dL Invalid Interpretation Code 0.2 - 1.0 mg/dL AO ADM SS Calcium [Mass/Vol] 8.4 mg/dL Invalid Interpretation Code 8.4 - 10.2 mg/dL AO ADM SS Chloride [Moles/Vol] 105 mmol/L Invalid Interpretation Code 98 - 107 mmol/L AO ADM SS Cholesterol [Mass/Vol] 204 mg/dL Invalid Interpretation Code 0 - 200 mg/dL AO ADM SS Cholesterol in HDL [Mass/Vol] 46 mg/dL Invalid Interpretation Code 40 - 60 mg/dL AO ADM SS Cholesterol in LDL [Mass/Vol] 119 mg/dL Invalid Interpretation Code 0 - 130 mg/dL AO ADM SS CO2 [Moles/Vol] 29 mmol/L Invalid Interpretation Code 23 - 31 mmol/L AO ADM SS Creatinine [Mass/Vol] 0.85 mg/dL Invalid Interpretation Code 0.55 - 1.02 mg/dL AO ADM SS Electrolyte Balance 10.0 mEq/L Invalid Interpretation Code 4.0 - 15.0 mEq/L AO ADM SS Globulin 3.6 G/dL Invalid Interpretation Code AO ADM SS Glucose [Mass/Vol] 103 mg/dL Invalid Interpretation Code 83 - 110 mg/dL AO ADM SS HbA1c (Bld) [Mass fraction] 6.4 % Invalid Interpretation Code 4.3 - 6.4 % AO ADM SS Potassium [Moles/Vol] 4.1 mmol/L Invalid Interpretation Code 3.5 - 5.1 mmol/L AO ADM SS Protein [Mass/Vol] 7.1 G/dL Invalid Interpretation Code 6.4 - 8.2 G/dL AO ADM SS Sodium [Moles/Vol] 144 mmol/L Invalid Interpretation Code 136 - 145 mmol/L AO ADM SS Triglyceride [Mass/Vol] 196 mg/dL Invalid Interpretation Code 0 - 150 mg/dL AO ADM SS TSH Qn 1.03 m[IU]/L Invalid Interpretation Code 0.36 - 3.74 mcIU/mL AO ADM SS Urea nitrogen [Mass/Vol] 20 mg/dL Invalid Interpretation Code 7 - 18 mg/dL AO ADM SS Urea nitrogen/Creatinine [Mass ratio] 24 ratio Invalid Interpretation Code 7 - 27 ratio AO ADM SS LABORATORYOrdered By: SYSTEM SYSTEM on 11-27-2021 GFR 79 ml/min/1.73sqm Invalid Interpretation Code AO Chemistry S GFR Non- 65 ml/min/1.73sqm Invalid Interpretation Code AO Chemistry S LABORATORYOrdered By: Rito Hammond on 07-31-2021 Albumin BCP dye [Mass/Vol] 3.5 G/dL Invalid Interpretation Code 3.4 - 4.8 G/dL AO ADM SS Albumin/Globulin [Mass ratio] 0.9 {ratio} Invalid Interpretation Code 1.1 - 2.5 ratio AO ADM SS ALP [Catalytic activity/Vol] 93 U/L Invalid Interpretation Code 40 - 135 U/L AO ADM SS ALT With P-5'-P [Catalytic activity/Vol] 25 U/L Invalid Interpretation Code 14 - 59 U/L AO ADM SS AST With P-5'-P [Catalytic activity/Vol] 12 U/L Invalid Interpretation Code 10 - 40 U/L AO ADM SS Bilirubin [Mass/Vol] 0.6 mg/dL Invalid Interpretation Code 0.2 - 1.0 mg/dL AO ADM SS Calcium [Mass/Vol] 8.9 mg/dL Invalid Interpretation Code 8.4 - 10.2 mg/dL AO ADM SS Chloride [Moles/Vol] 103 mmol/L Invalid Interpretation Code 98 - 107 mmol/L AO ADM SS Cholesterol [Mass/Vol] 208 mg/dL Invalid Interpretation Code 0 - 200 mg/dL AO ADM SS Cholesterol in HDL [Mass/Vol] 46 mg/dL Invalid Interpretation Code 40 - 60 mg/dL AO ADM SS Cholesterol in LDL [Mass/Vol] 115 mg/dL Invalid Interpretation Code 0 - 130 mg/dL AO ADM SS CO2 [Moles/Vol] 27 mmol/L Invalid Interpretation Code 23 - 31 mmol/L AO ADM SS Creatinine [Mass/Vol] 0.92 mg/dL Invalid Interpretation Code 0.55 - 1.02 mg/dL AO ADM SS Electrolyte Balance 11.0 mEq/L Invalid Interpretation Code 4.0 - 15.0 mEq/L AO ADM SS Globulin 3.9 G/dL Invalid Interpretation Code AO ADM SS Glucose [Mass/Vol] 111 mg/dL Invalid Interpretation Code 83 - 110 mg/dL AO ADM SS HbA1c (Bld) [Mass fraction] 5.9 % Invalid Interpretation Code 4.3 - 6.4 % AO ADM SS Potassium [Moles/Vol] 4.1 mmol/L Invalid Interpretation Code 3.5 - 5.1 mmol/L AO ADM SS Protein [Mass/Vol] 7.4 G/dL Invalid Interpretation Code 6.4 - 8.2 G/dL AO ADM SS Sodium [Moles/Vol] 141 mmol/L Invalid Interpretation Code 136 - 145 mmol/L AO ADM SS Triglyceride [Mass/Vol] 237 mg/dL Invalid Interpretation Code 0 - 150 mg/dL AO ADM SS TSH Qn 0.80 m[IU]/L Invalid Interpretation Code 0.36 - 3.74 mcIU/mL AO ADM SS Urea nitrogen [Mass/Vol] 16 mg/dL Invalid Interpretation Code 7 - 18 mg/dL AO ADM SS Urea nitrogen/Creatinine [Mass ratio] 17 ratio Invalid Interpretation Code 7 - 27 ratio AO ADM SS LABORATORYOrdered By: SYSTEM SYSTEM on 07-31-2021 GFR 73 ml/min/1.73sqm Invalid Interpretation Code AO Chemistry S GFR Non- 60 ml/min/1.73sqm Invalid Interpretation Code AO Chemistry S LABORATORYOrdered By: Kaia Martinez on 02-05-2021 Albumin BCP dye [Mass/Vol] 3.6 G/dL Invalid Interpretation Code 3.4 - 4.8 G/dL AO ADM SS Albumin/Globulin [Mass ratio] 1.0 {ratio} Invalid Interpretation Code 1.1 - 2.5 ratio AO ADM SS ALP [Catalytic activity/Vol] 88 U/L Invalid Interpretation Code 40 - 135 U/L AO ADM SS ALT With P-5'-P [Catalytic activity/Vol] 28 U/L Invalid Interpretation Code 14 - 59 U/L AO ADM SS AST With P-5'-P [Catalytic activity/Vol] 17 U/L Invalid Interpretation Code 10 - 40 U/L AO ADM SS Bilirubin [Mass/Vol] 0.5 mg/dL Invalid Interpretation Code 0.2 - 1.0 mg/dL AO ADM SS Calcium [Mass/Vol] 8.4 mg/dL Invalid Interpretation Code 8.4 - 10.2 mg/dL AO ADM SS Chloride [Moles/Vol] 104 mmol/L Invalid Interpretation Code 98 - 107 mmol/L AO ADM SS Cholesterol [Mass/Vol] 245 mg/dL Invalid Interpretation Code 0 - 200 mg/dL AO ADM SS Cholesterol in HDL [Mass/Vol] 49 mg/dL Invalid Interpretation Code 40 - 60 mg/dL AO ADM SS Cholesterol in LDL [Mass/Vol] 166 mg/dL Invalid Interpretation Code 0 - 130 mg/dL AO ADM SS CO2 [Moles/Vol] 27 mmol/L Invalid Interpretation Code 23 - 31 mmol/L AO ADM SS Creatinine [Mass/Vol] 0.93 mg/dL Invalid Interpretation Code 0.55 - 1.02 mg/dL AO ADM SS Electrolyte Balance 10.0 mEq/L Invalid Interpretation Code AO ADM SS Free T3 [Mass/Vol] 2.33 pg/mL Invalid Interpretation Code 2.30 - 4.00 pg/mL AO ADM SS Free T4 [Mass/Vol] 0.74 ng/dL Invalid Interpretation Code 0.76 - 1.46 ng/dL AO ADM SS Globulin 3.7 G/dL Invalid Interpretation Code AO ADM SS Glucose [Mass/Vol] 117 mg/dL Invalid Interpretation Code 83 - 110 mg/dL AO ADM SS HbA1c (Bld) [Mass fraction] 6.2 % Invalid Interpretation Code 4.3 - 6.4 % AO ADM SS Potassium [Moles/Vol] 4.3 mmol/L Invalid Interpretation Code 3.5 - 5.1 mmol/L AO ADM SS Protein [Mass/Vol] 7.3 G/dL Invalid Interpretation Code 6.4 - 8.2 G/dL AO ADM SS Sodium [Moles/Vol] 141 mmol/L Invalid Interpretation Code 136 - 145 mmol/L AO ADM SS Triglyceride [Mass/Vol] 149 mg/dL Invalid Interpretation Code 0 - 150 mg/dL AO ADM SS TSH Qn 8.54 m[IU]/L Invalid Interpretation Code 0.36 - 3.74 mcIU/mL AO ADM SS Urea nitrogen [Mass/Vol] 23 mg/dL Invalid Interpretation Code 7 - 18 mg/dL AO ADM SS Urea nitrogen/Creatinine [Mass ratio] 25 ratio Invalid Interpretation Code 7 - 27 ratio AO ADM SS Vit. D 25-Hydroxy 60.5 ng/mL Invalid Interpretation Code AO ADM SS LABORATORYOrdered By: SYSTEM SYSTEM on 02-05-2021 GFR 72 ml/min/1.73sqm Invalid Interpretation Code AO Chemistry S GFR Non- 59 ml/min/1.73sqm Invalid Interpretation Code AO Chemistry S CR Hand Complete 3+ Views Christine zurita 12-24-2018 CR Hand Complete 3+ Views Right Patient Name: PRACHI PIERRE Diagnostic Radiology Exam Date/Time 12/24/2018 08:00:00 EDT Exam CR Hand Complete 3+ Views Right Ordering Physician MD LUIS ENRIQUE, MILENA Dunlap Accession Number [id number] CPT4 Codes 79579 () Reason For Exam rt hand pain Report RIGHT HAND History: Hand pain, swelling Findings: Three views show osteoarthritic changes with joint space narrowing, marginal sclerosis and spurs at the first carpometacarpal and lateral intercarpal joints. There are also osteoarthritic changes at most DIP and PIP joints with soft tissue swelling. There is mild narrowing of the first metacarpophalangeal joint space. There is no acute fracture, dislocation, or periosteal reaction. IMPRESSION: Osteoarthritis as described. Report Dictated on Final Dictating Physician: MD CONTRERAS AHMAD Signed Date and Time: 12/24/2018 8:58 am Signed by: MD CONTRERAS AHMAD Transcribed Date and Time: 12/24/2018 8:59 Normal [facility] No Panel Information [facility] Vital Signs Date Time Vital Sign Value Performing Clinician Facility 11-30-2024 11:130400 Body height 162.[address] Hardeep Downey DO Work Phone: [facility] 11-30-2024 11:13-0400 Body mass index (BMI) [Ratio] 29.5 kg/m2 Dr. Hardeep Downey DO Work Phone: [facility] 11-30-2024 11:13-0400 Body weight 78.[address] Hardeep Downey DO Work Phone: [facility] 11-30-2024 11:13-0400 Diastolic blood pressure 82 mm[Hg] Dr. Hardeep Downey DO Work Phone: [facility] 11-30-2024 11:13-0400 Heart rate 65 /min Dr. Hardeep Downey DO Work Phone: [facility] 11-30-2024 11:13-0400 Systolic blood pressure 135 mm[Hg] Dr. Hardeep Downey DO Work Phone: [facility] 11-17-2023 10:26-0400 Diastolic Blood Pressure Non-Invasive 53 mm[Hg] DR CONCEPCIÓN MOORE MD [facility] 11-17-2023 10:26-0400 Heart rate 70 /min DR CONCEPCIÓN MOORE MD [facility] 11-17-2023 10:26-0400 Respiratory rate 22 /min DR CONCEPCIÓN MOORE MD [facility] 11-17-2023 10:26-0400 Systolic Blood Pressure Non-Invasive 119 mm[Hg] DR CONCEPCIÓN MOORE MD [facility] 11-17-2023 10:20-0400 Diastolic Blood Pressure Non-Invasive 69 mm[Hg] DR CONCEPCIÓN MOORE MD [facility] 11-17-2023 10:20-0400 Heart rate 73 /min DR CONCEPCIÓN MOORE MD [facility] 11-17-2023 10:20-0400 Respiratory rate 19 /min DR CONCEPCIÓN MOORE MD [facility] 11-17-2023 10:20-0400 Systolic Blood Pressure Non-Invasive 106 mm[Hg] DR CONCEPCIÓN MOORE MD [facility] 11-17-2023 10:13-0400 Diastolic Blood Pressure Non-Invasive 58 mm[Hg] DR CONCEPCIÓN MOORE MD [facility] 11-17-2023 10:13-0400 Heart rate 72 /min DR CONCEPCIÓN MOORE MD [facility] 11-17-2023 10:13-0400 Respiratory rate 13 /min DR CONCEPCIÓN MOORE MD [facility] 11-17-2023 10:13-0400 Systolic Blood Pressure Non-Invasive 105 mm[Hg] DR CONCEPCIÓN MOORE MD [facility] 11-17-2023 10:02-0400 Body temperature 97.88 [degF] DR CONCEPCIÓN MOORE MD [facility] 11-17-2023 09:55-0400 Respiratory Rate - Anes 14 br/min DR CONCEPCIÓN MOORE MD [facility] 11-17-2023 09:50-0400 Respiratory Rate - Anes 0 br/min DR CONCEPCIÓN MOORE MD [facility] 11-17-2023 09:42-0400 Body height 162.[address] CONCEPCIÓN MOORE MD [facility] 11-17-2023 09:42-0400 Body temperature 96.44 [degF] DR CONCEPCIÓN MOORE MD [facility] 11-17-2023 09:42-0400 Body weight 91.[address] CONCEPCIÓN MOORE MD [facility] 11-17-2023 09:42-0400 Heart rate 70 /min DR CONCEPCIÓN MOORE MD [facility] 09-20-2022 08:42-0400 Diastolic blood pressure 58 mm[Hg] Yodit Garcia MD Work Phone: [facility] 09-20-2022 08:42-0400 Heart rate 71 /min Yodit Garcia MD Work Phone: [facility] 09-20-2022 08:42-0400 Systolic blood pressure 126 mm[Hg] Yodit Garcia MD Work Phone: [facility] 09-17-2022 07:09-0400 Body height 162.5 cm Yodit Garcia MD Work Phone: [facility] 09-17-2022 07:09-0400 Body mass index (BMI) [Ratio] 35.11 kg/m2 Yodit Garcia MD Work Phone: [facility] 09-17-2022 07:09-0400 Body weight 92.7 kg Yodit Garcia MD Work Phone: [facility] 09-16-2022 11:55-0400 Diastolic blood pressure 78 mm[Hg] Yodit Garcia MD Work Phone: [facility] 09-16-2022 11:55-0400 Heart rate 15 /min Yodit Garcia MD Work Phone: [facility] 09-16-2022 11:55-0400 Systolic blood pressure 152 mm[Hg] Yodit Garcia MD Work Phone: [facility] 01-02-2022 13:00-0400 Body temperature 97.88 [degF] DR YELENA HAIDER MD [facility] 01-02-2022 13:00-0400 Diastolic blood pressure 78 mm[Hg] DR YELENA HAIDER MD [facility] 01-02-2022 13:00-0400 Heart rate 83 /min DR YELENA HAIDER MD [facility] 01-02-2022 13:00-0400 Mean blood pressure 101 mm[Hg] DR YELENA HAIDER MD [facility] 01-02-2022 13:00-0400 Systolic blood pressure 146 mm[Hg] DR YELENA HAIDER MD [facility] 01-02-2022 10:07-0400 Reason For Taking VItal Signs DR YELENA HAIDER MD [facility] 01-02-2022 08:49-0400 Body temperature 97.52 [degF] DR YELENA HAIDER MD [facility] 01-02-2022 08:49-0400 Diastolic blood pressure 60 mm[Hg] DR YELENA HAIDER MD [facility] 01-02-2022 08:49-0400 Heart rate 73 /min DR YELENA HAIDER MD [facility] 01-02-2022 08:49-0400 Respiratory rate 18 /min DR YELENA HAIDER MD [facility] 01-02-2022 08:49-0400 Systolic blood pressure 112 mm[Hg] DR YELENA HAIDER MD [facility] 01-02-2022 05:05-0400 Body temperature 97.52 [degF] DR YELENA HAIDER MD [facility] 01-02-2022 05:05-0400 Diastolic blood pressure 61 mm[Hg] DR YELENA HAIDER MD [facility] 01-02-2022 05:05-0400 Heart rate 84 /min DR YELENA HAIDER MD [facility] 01-02-2022 05:05-0400 Systolic blood pressure 137 mm[Hg] DR YELENA HAIDER MD [facility] 01-01-2022 21:19-0400 Heart rate 91 /min DR YELENA HAIDER MD [facility] 01-01-2022 21:19-0400 Mean blood pressure 88 mm[Hg] DR YELENA HAIDER MD [facility] 01-01-2022 16:28-0400 Body temperature 96.8 [degF] DR YELENA HAIDER MD [facility] 01-01-2022 16:28-0400 Heart rate 88 /min DR YELENA HAIDER MD [facility] 01-01-2022 12:32-0400 Body height [address] YELENA HAIDER MD [facility] 01-01-2022 12:32-0400 Body weight [address] YELENA HAIDER MD [facility] 01-01-2022 12:32-0400 Body weight 34.38 kg/m2 DR YELENA HAIDER MD [facility] 01-01-2022 12:28-0400 Body temperature 95.9 [degF] DR YELENA HAIDER MD [facility] 01-01-2022 12:28-0400 Diastolic Blood Pressure NBP [address] YELENA HAIDER MD [facility] 01-01-2022 12:28-0400 Heart rate 74 /min DR YELENA HAIDER MD [facility] 01-01-2022 12:28-0400 Systolic Blood Pressure NBP [address] YELENA HAIDER MD [facility] 01-01-2022 11:55-0400 Diastolic Blood Pressure NBP [address] YELENA HAIDER MD [facility] 01-01-2022 11:55-0400 Systolic Blood Pressure NBP [address] YELENA HAIDER MD [facility] 01-01-2022 11:40-0400 Diastolic Blood Pressure NBP [address] YELENA HAIDER MD [facility] 01-01-2022 11:40-0400 Systolic Blood Pressure NBP [address] YELENA HAIDER MD [facility] 01-01-2022 11:15-0400 Mean blood pressure 64 mm[Hg] DR YELENA HAIDER MD [facility] 01-01-2022 11:10-0400 Body temperature 95.9 [degF] DR YELENA HAIDER MD [facility] 01-01-2022 08:03-0400 Body height [address] YELENA HAIDER MD [facility] 01-01-2022 08:03-0400 Body weight [address] YELENA HAIDER MD [facility] 12-21-2021 09:59-0400 Body height [address] YELENA HAIDER MD [facility] 12-21-2021 09:59-0400 Body weight [address] YELENA HAIDER MD [facility] Encounters Encounter Date Encounter Type Care Provider Facility Start: 12-15-2024 ambulatory Hardeep Santizo ity:[facility] Start: 12-06-2024 End: 12-06-[address] HARDEEP DOWNEY DO Facility:[facility] Start: 12-06-2024 End: 12-06-[address] HARDEEP DOWNEY DO [facility] Start: 11-30-2024 ambulatory [facility] Facility: [facility] Start: 11-30-2024 ambulatory [facility] Facility: [facility] Start: 11-30-2024 End: 11-30-[address] Annmarie Mcdaniel MD -[facility] Work Phone: Start: 11-30-2024 End: 11-30-[address] Hardeep Downey DO Work Phone: -[facility] Start: 11-19-2024 End: 11-19-[address] Hardeep Downey DO Work Phone: -[facility] Start: 11-19-2024 End: 11-19-[address] Hardeep Downey DO -[facility] Work Phone: Start: 11-19-2024 End: 11-19-2024 ambulatory Hardeep Downey Facility:[facility] Start: 09-28-2024 End: 10-02-[address] HARDEEP DOWNEY DO Facility:[facility] Start: 09-28-2024 End: 10-02-[address] HARDEEP DOWNEY DO [facility] Start: 09-28-2024 End: 10-02-[address] HARDEEP DOWNEY DO Facility:[facility] Start: 09-28-2024 End: 10-02-[address] HARDEEP DOWNEY DO [facility] Start: 07-21-2024 End: 09-03-[address] HARDEEP DOWNEY DO Facility:[facility] Start: 07-21-2024 End: 09-03-[address] YELENA HAIDER MD [facility] Start: 06-08-2024 End: 06-08-[address] HARDEEP DOWNEY DO Facility:[facility] Start: 12-16-2023 End: 12-20-[address] HARDEEP DOWNEY DO Facility:[facility] Start: 12-16-2023 End: 12-20-[address] HARDEEP DOWNEY DO [facility] Start: 12-11-2023 End: 12-11-[address] HARDEEP DOWNEY DO Facility:[facility] Start: 12-11-2023 End: 12-11-[address] HARDEEP DOWNEY DO [facility] Start: 12-09-2023 End: 12-09-[address] HARDEEP DOWNEY DO Facility:[facility] Start: 12-09-2023 End: 12-09-[address] HARDEEP DOWNEY DO [facility] Start: 11-18-[address] HARDEEP DOWNEY DO Fac ility:[facility] Start: 11-17-2023 End: 11-17-[address] CONCEPCIÓN MOORE MD Facility:[facility] Start: 11-17-2023 End: 11-17-[address] CONCEPCIÓN MOORE MD [facility] Start: 10-27-[address] CONCEPCIÓN MOORE MD Fa cility:[facility] Start: 10-14-2023 End: 10-14-2023 ambulatory HARDEEP DOWNEY Facility:[facility] Start: 10-14-2023 End: 10-14-2023 Patient encounter procedure Abdirahman Pastrana OD Work Phone: Ophthalmology Comment on above: Floaters, bilateral (Primary Dx); Dry eyes, bilateral; Dermatochalasis of both upper eyelids Start: 09-03-2023 End: 09-03-[address] HARDEEP DOWNEY DO Facility:[facility] Start: 09-03-2023 End: 09-03-[address] HARDEEP DOWNEY DO [facility] Start: 08-07-2023 End: 08-07-[address] HARDEEP DOWNEY DO Facility:[facility] Start: 08-07-2023 End: 08-07-[address] HARDEEP DOWNEY DO [facility] Start: 06-13-2023 End: 06-17-[address] HARDEEP DOWNEY DO Facility:[facility] Start: 06-13-2023 End: 06-17-[address] HARDEEP DOWNEY DO [facility] Start: 06-13-2023 End: 06-13-[address] HARDEEP DOWNEY DO Facility:[facility] Start: 06-13-2023 End: 06-13-[address] HARDEEP DOWNEY DO [facility] Start: 06-03-2023 End: 06-03-[address] HARDEEP DOWNEY DO Facility:[facility] Start: 06-03-2023 End: 06-03-[address] HARDEEP DOWNEY DO [facility] Start: 11-20-2022 End: 11-20-[address] HARDEEP DOWNEY DO Facility:[facility] Start: 11-20-2022 End: 11-20-[address] HARDEEP DOWNEY DO [facility] Start: 11-15-2022 End: 11-15-2022 ambulatory [facility] Work Phone: Start: 11-15-2022 End: 11-15-2022 Patient encounter procedure [facility] Work Phone: Start: 10-04-2022 End: 10-04-2022 Patient encounter procedure Yodit Garcia MD Work Phone: Ophthalmology Comment on above: Status post cataract extraction and insertion of intraocular lens of right eye (Primary Dx); Status post cataract extraction and insertion of intraocular lens of left eye Start: 10-03-2022 End: 10-03-[address] Hardeep Downey Facility:[id number] Start: 10-03-2022 End: 10-03-2022 Subsequent hospital visit by physician Yodit Garcia MD Work Phone: [facility] Comment on above: Combined forms of ag e-related cataract, left eye; Essential (primary) hypertension; Obstructive sleep apnea (adult) (pediatric); Hypothyroidism, unspecified; Presence of unspecified artificial knee joint; Allergy status to sulfonamides; Allergy status to penicillin Start: 09-20-2022 End: 09-20-2022 Patient encounter procedure Yodit Garcia MD Work Phone: Ophthalmology Comment on above: Combined form of age -related cataract, left eye (Primary Dx); Status post cataract extraction and insertion of intraocular lens of right eye; Dermatochalasis of left upper eyelid; Dermatochalasis of right upper eyelid; Unspecified sleep apnea; Arthritis Start: 09-19-2022 End: 09-19-[address] Hardeep Downey Facility:[id number] Start: 09-19-2022 End: 09-19-2022 Subsequent hospital visit by physician Yodit Garcia MD Work Phone: [facility] Comment on above: Combined forms of ag e-related cataract, right eye; Essential (primary) hypertension; Obstructive sleep apnea (adult) (pediatric); Hypothyroidism, unspecified; Allergy status to penicillin; Allergy status to sulfonamides; Obesity, unspecified; Body mass index (BMI) 35.0-35.9, adult Start: 09-16-2022 End: 09-16-2022 Patient encounter procedure Yodit Garcia MD Work Phone: Ophthalmology Comment on above: Combined forms of ag e-related cataract of right eye (Primary Dx); Combined form of age-related cataract, left eye; Dermatochalasis of left upper eyelid; Dermatochalasis of right upper eyelid; Unspecified sleep apnea; Arthritis Start: 09-11-2022 End: 09-11-2022 Patient encounter procedure ALEYDA STACK PA-C [facility] Start: 05-27-2022 End: 05-27-[address] HARDEEP DOWNEY DO [facility] Start: 01-01-2022 End: 01-02-[address] YELENA HAIDER MD [facility] Start: 12-21-2021 End: 12-21-[address] YELENA HAIDER MD [facility] Start: 12-21-2021 End: 12-21-[address] YELENA HAIDER MD [facility] Start: 11-27-2021 End: 11-27-[address] HARDEEP DOWNEY DO [facility] Start: 11-14-2021 End: 11-14-2021 Patient encounter procedure [facility] Start: 07-31-2021 End: 07-31-[address] HARDEEP DOWNEY DO [facility] Start: 02-05-2021 End: 02-05-2021 Patient encounter procedure KINGSLEY YUAN MD [facility] Start: 01-16-2021 End: 01-16-[address] HARDEEP DOWNEY DO [facility] Procedures Date Procedure Procedure Detail Performing Clinician Start: 11-19-2024 Screening mammography Paris Downey DO Work Phone: Start: 11-15-2022 Screening mammography Start: 09-28-2022 Cataract (disorder) DR HARDEEP DOWNEY DO Comment on above: Left Start: 09-20-2022 IOL BIOMETRY W/ IOL CALC OS (LEFT EYE) Yodit Garcia MD Work Phone: Start: 09-16-2022 IOL BIOMETRY W/ IOL CALC OU (BOTH EYES) Yodit Garcia MD Work Phone: Start: 08-29-2022 Cataract (disorder) DR HARDEEP DOWNEY DO Comment on above: Right Start: 01-01-2022 Structure of left kn ee (body structure) DR YELENA HAIDER MD Start: 11-14-2021 Screening mammography Start: 03-31-2013 Malignant neoplasm o f skin (disorder) DR HARDEEP DOWNEY DO Comment on above: skin cancer removed from face. [facility] Start: 03-31-2003 Cystocele (disorder) DR HARDEEP DOWNEY DO Start: 03-31-2003 Herniation of rectum into vagina (disorder) DR HARDEEP DOWNEY DO Start: 03-31-[address] OSEI DOWNEY DO Start: 03-31-1988 Decompression of med josé miguel nerve DR HARDEEP DOWNEY DO Comment on above: right Start: 03-31-[address] HARDEEP DIAMOND DO Start: 03-31-[address] HARDEEP DIAMOND DO Comment on above: complete- due to ble eding. Abdominal hysterectomy DR ALCIDES DOWNEY DO Appendectomy DR HARDEEP Clifton DO Comment on above: 1981 Carpal tunnel syndro me of right wrist (disorder) DR HARDEEP DOWNEY DO Comment on above: [address] YELENA Clifton MD Combined anteroposte rior colporrhaphy DR HARDEEP DOWNEY DO Hernia of abdominal cavity (disorder) DR HARDEEP DOWNEY DO Comment on above: umbilical Hernia repair DR HARDEEP MOSQUERA DO Comment on above: umbilical Laparoscopic cholecystectomy DR HARDEEP DOWNEY DO Malignant neoplasm o f skin (disorder) DR HARDEEP DOWNEY DO Comment on above: face-2013 Sinus (morphologic abnormality) DR YELENA HAIDER MD Vaccine refused by patient COVID -19 vaccination declined( Confirmed ) DR HARDEEP DOWNEY DO Plan of Treatment Date Care Activity Detail Author Start: 12-23-2028 Urine microalbumin profile DTaP,Tdap,Td Vaccine (2 - Td or Tdap) [facility] Start: 10-26-2024 End: 10-26-2024 Patient encounter procedure 10/26/2024 10:00 AM EDT Office Visit [facility] [address] [place] [address] Abdirahman Pastrana, OD [address] [id number] floaters 1 year Ophthalmology Comment on above: floaters 1 year Start: 11-30-2023 Influenza vaccination Influenza Vacc ine (#1) [facility] Start: 03-31-2023 Advance Directive Discussion Advance Directive Discussion [facility] Start: 03-31-2023 Behavioral Health Screening Behavioral Health Screening [facility] Start: 11-29-2022 Covid-19 Vaccine ( season) Covid-19 Vaccine ( season) [facility] Start: 11-29-2022 Influenza vaccination C [facility] Start: 03-31-2022 ADVANCE DIRECTIVE DISCUSSION ADVANCE DIRECTIVE DISCUSSION [facility] Start: 03-31-2022 DEPRESSION ASSESSMENT DEPRESSION ASS ESSMENT [facility] Start: 12-12-2014 Shingrix Vaccine (2 of 2) Shingrix Vaccine (2 of 2) [facility] Start: 08-14-2012 BONE DENSITY BONE DENSITY [facility] Start: 08-14-2012 Pneumococcal Vaccine : 65+ Years (1 - PCV) Pneumococcal Vaccine: 65+ Years (1 - PCV) [facility] Start: 08-14-2012 PNEUMOCOCCAL: 65+ (1 - PCV) PNEUMOCOCCAL: 65+ (1 - PCV) [facility] Start: 08-14-2012 Screening for osteoporosis Bone Density Screening [facility] Start: 2007 RSV Vaccine (1 - 1-d ose 60+ series) RSV Vaccine (1 - 1-dose 60+ series) [facility] Start: 08-14-1997 SHINGRIX VACCINE (1 of 2) SHINGRIX VACCINE (1 of 2) [facility] Start: 08-14-1997 Zoster Vaccines (1 o f 2) Zoster Vaccines (1 of 2) [facility] Start: 08-14-1992 COLOGUARD (FIT-DNA) COLOGUARD (FIT-D NA) [facility] Start: 08-14-1992 Colonoscopy COLONOSCOPY [facility] Start: 08-14-1992 COLORECTAL CANCER SCREENING COLORECTAL CANCER SCREENING [facility] Start: 08-14-[address] COLONOGRAPHY [facility] Start: 08-14-1992 DIABETES SCREEN DIABETES SCREEN [facility] Start: 08-14-1992 Diabetes Screening Diabetes Screenin g [facility] Start: 08-14-1992 FECAL OCCULT BLOOD FECAL OCCULT BLOO D [facility] Start: 08-14-1992 LIPID SCREEN LIPID SCREEN [facility] Start: 08-14-1992 SIGMOIDOSCOPY SIGMOIDOSCOPY [facility] Start: 08-14-1969 DTaP/Tdap/Td Vaccine s (1 - Tdap) DTaP/Tdap/Td Vaccines (1 - Tdap) [facility] Start: 08-14-1966 Urine microalbumin profile DTAP,TDAP,TD (1 - Tdap) [facility] Start: 08-14-1965 HEPATITIS C SCREENING HEPATITIS C [facility] Start: 08-14-1965 Hepatitis C screening Hepatitis C [facility] Start: 02-15-1948 COVID-19 VACCINE (#1) COVID-19 VACCI NE (#1) [facility] Start: 1947 Lipid panel Lipid Panel [facility] Start: 1947 Screening for malign ant neoplasm of colon [facility] Start: 1947 Screening for osteoporosis Bone Density Scan [facility] Start: 1947 Thyroid stimulating hormone measurement TSH Level [facility] Start: 1947 Yearly Adult Physical Yearly Adult P hysical [facility] Basic metabolic 2008 panel with ionized calcium - Serum or Plasma [facility] CT Abdomen and Pelvi s WO and W contrast IV [facility] Immunizations Immunization Date Immunization Notes Care Provider Andrae temple 02-28-2023 Pneumococcal conjuga te PCV20, polysaccharide [id number] conjugate, adjuvant, PF; Translations: [Prevnar 20] DR HARDEEP DOWNEY DO [facility] 12-23-2018 tetanus toxoid, redu jarett diphtheria toxoid, and acellular pertussis vaccine, adsorbed DR HARDEEP DOWNEY DO [facility] 08-01-2015 pneumococcal conjuga te vaccine, [address] HARDEEP DOWNEY DO [facility] 10-17-[address] HARDEEP DOWNEY DO [facility] 09-28-2013 pneumococcal polysaccharide vaccine, [address] HARDEEP DOWNEY DO [facility] Payers Date Payer Category Payer Self-pay [id number] 2024 Private Health Insurance [id number] 2022 Unknown MMO MMO MEDICARE SUPPLEMENT [id number] 2022-Present [phone] [address] [place] [address] Indemnity [id number] 2022 Unknown [id number] 2012 Medicare [id number] 2012 Medicare [id number] 1945 Unknown [id number] 2.16.840.1.690432.3.579.2. 1947 Unknown [id number] 2.16.840.1.864408.3.579.2. 1947 Unknown [id number] 2..840.1.394927.3.579.2. 1947 Unknown [id number] 2..840.1.461764.3.579.2. 1947 Unknown [id number] 2..840.1.814713.3.579.2 1947 Unknown [id number] 2..840.1.303515.3.579.2 1947 Unknown [id number] 2.840.1.151277.3.579.2 1947 Unknown [id number] 2.840.1.089764.3.579.2 1947 Unknown [id number] 2.840.1.464578.3.579.2 1947 Unknown [id number] 2..840.1.328304.3.579.2 1947 Unknown [id number] 2.840.1.654410.3.579.2 1947 Unknown [id number] 2..840.1.873971.3.579.2. 1947 Unknown [id number] 2..840.1.480368.3.579.2 1947 Unknown [id number] 2.16.840.1.505570.3.579.2 1947 Unknown [id number] 2.16.840.1.251792.3.579.2 1947 Unknown [id number] 2.16.840.1.418978.3.579.2. 627 1947 Unknown [id number] 2.16.840.1.902709.3.579.2. 627 1947 Unknown [id number] 2.16.840.1.569639.3.579.2. 1069 1947 Unknown [id number] 2.16.840.1.215971.3.579.2. 1069 Medicare [id number] Unknown [id number] Unknown [id number] 2.16.840.1.935807.3.579.2. 462 Unknown [id number] 2.16.840.1.398444.3.579.2. 462 Unknown [id number] 2.16.840.1.023954.3.579.2. 462 Unknown [id number] 2.16.840.1.250448.3.579.2. 462 Unknown [id number] 2.16.840.1.351233.3.579.2. 462 Social History Date Type Detail Facility Start: 10-09-2018 End: 09-07-2024 Never smoked tobacco (finding) [facility] Start: 1945 Sex Assigned At Female A [facility] Start: 08-27-2013 [facility] Start: 09-16-2022 End: 10-14-2023 Alcohol intake Current non-drinker of alcohol (finding) [facility] Start: 1945 Sex Assigned At Not on file [facility] Start: 10-04-2022 Gender identity Not on file [facility] Work Phone: Start: 10-04-2022 History of Social function [facility] National Score (1-10 0), lower number is lower risk 66 [facility] Sexual Orientation Ashely Moon Start: 05-21-2018 Sex Female (finding) [facility] Medical Equipment Procedure Code Equipment Code Equipment Origin al Text Equipment Identifier Dates See Instructions , onetouch verio test strips 1 strip 3 times daily # 300 for 90 days and 3 refills., # 1 EA, 0 Refill(s), [facility] [address] Diabetes, 163, cm, 08/24/20 9:26:00 EDT, Height, 97.3, kg, 08/24/20 9:26:00 EDT, Dosing Weight Start: 08-24-2020 See Instructions , onetouch verio test strips 1 strip 3 times daily # 300 for 90 days and 3 refills., # 1 EA, 0 Refill(s), [facility] Diabetes, 163, cm, 08/24/20 9:26:00 EDT, Height, 97.3, kg, 08/24/20 9:26:00 EDT, Dosing Weight Start: 08-24-2020 See Instructions , onetouch verio test strips 1 strip 3 times daily # 300 for 90 days and 3 refills., # 1 EA, 0 Refill(s), [facility] Diabetes, 163, cm, 08/24/20 9:26:00 EDT, Height, 97.3, kg, 08/24/20 9:26:00 EDT, Dosing Weight Start: 08-24-2020 See Instructions , onetouch verio test strips 1 strip 3 times daily # 300 for 90 days and 3 refills., # 1 EA, 0 Refill(s), [facility] Diabetes, 163, cm, 08/24/20 9:26:00 EDT, Height, 97.3, kg, 08/24/20 9:26:00 EDT, Dosing Weight Start: 08-24-2020 Functional Status Date Assessment Result Facility 11-17-2023 Functional Status Maintained [facility] 01-02-2022 Functional Status Door open, Room check performed [facility] 01-02-2022 Functional Status [facility] 01-02-2022 Functional Status [facility] 01-02-2022 Functional Status bilateral knee high [facility] 01-02-2022 Functional Status [facility] 01-02-2022 Functional Status [facility] 01-01-2022 Functional Status Dinner Percent 75 [facility] 01-01-2022 [facility] 01-01-[facility] Functional Status 1st floor bedr oom, 1st floor bathroom, 1st floor laundry [facility] 01-01-2022 Functional Status ice on, tension pillow off [facility] 01-01-2022 [facility] Functional Status Sensory Deficits None A [facility] Mental Status Date Assessment Result Facility 01-02-2022 Mental Status Oriented x 4 [facility] 01-02-2022 Mental Status [facility] 01-01-2022 Mental Status [facility] 01-01-2022 Mental Status [facility] 01-01-2022 Mental Status [facility] Clinical Notes 01-01-2022 to 10-01-2024 Note Date & Type Note Facility 10-01-2024 Note . MICRO - Microbiology PROCEDURE: Urine Culture [*1] SOURCE: Urine, Clean Catch BODY SITE: COLLECTED DATE/TIME: 09/28/2024 09:54 EDT RECEIVED DATE/TIME: 09/29/2024 15:48 EDT START DATE/TIME: 09/29/2024 15:48 EDT FREE TEXT SOURCE: FINAL REPORTS Final Report [] Verified Date/Time/Personnel: 10/01/2024 07:19 EDT No growth at 48 hours. PRELIMINARY REPORTS Preliminary Report [] Verified Date/Time/Personnel: 09/30/2024 09:11 EDT No growth to date Preliminary Report [] Verified Date/Time/Personnel: 09/29/2024 16:59 EDT Specimen received in lab. Performing Locations *1: This test was performed at: [facility], [address] [place] [address], [phone] , [facility] [place] 11-17-2023 Evaluation + Plan note Extrac randy from: Title:Clinical Document Author:CONCEPCIÓN MOORE Date:11/17/23 [place] ADMISSION HISTORY AN D PHYSICIAL CHIEF COMPLAINT: HISTORY OF PRESENT ILLNESS: REVIEW OF SYSTEMS: ACTIVE PROBLEMS: (19) Anxiety (41178428) Claustrophobia (24836112) COVID-19 vaccination declined (6879624371) Fibromyalgia (924273991) Hyperglycemia (678652294) Hyperglycemia (141183463) Hyperlipidemia (04347795) HYPERTENSION (5949324414) Hypothyroidism (77610190) Hypothyroidism (99796982) Increased BMI (05778641) Knee osteoarthritis s/p TKA 2021 (421007218) Moderate recurrent major depression (269066935) AMARI on CPAP (360525260) Seasonal allergies (9942077554) Severe obesity (BMI 35.0-35.9 with comorbidity) (6719813512) Squamous cell carcinoma (04943310) Tinea pedis of left foot (79416174) Vitamin D deficiency (27242746) MEDICATIONS: Active Inpt Meds: None Active PRN Meds: None One Time Meds: (Completed) lidocaine (Xylocaine 2% 5 mL syringe (ANES) (ANES)) IV Push, Once, Stop: 11/17/23 10:00:00 EDT (Completed) propofol (propofol (ANES)) IV Push, Once, Stop: 11/17/23 10:00:00 EDT Active IV Meds: Lactated Ringers Infusion 1,000 mL (LR 1,000 mL) Start: 11/17/23 9:30:00 EDT, Rate: 50 mL/hr, 11/17/23 9:30:00 EDT ALLERGIES: (4) penicillin sulfa drugs TEGretol traMADol FAMILY HISTORY: SOCIAL HISTORY: PHYSICAL EXAM: VITALS: [id number](kg) 11/16 09:55----67--98.2--11/16 91.4 11/16 09:50----76------ 11/16 09:4235.8--877473WL 24 Hr Tmax: 35.8 at 11/16 09:42 36 Hr Tmax: 35.8 at 11/16 09:42 Vital Signs are the last 5 in the past 48 hours. Weights display the last 5 within 7 days. Initial Wt: 11/16 91.4 kg 201 lb Current Wt: 11/16 91.4 kg 201 lb GENERAL: HEENT: CARDIOVASCULAR: RESPIRATORY: ABDOMEN: EXREMETIES: NEUROLOGICAL: PSYCHIATRIC: LABS: No 36hr Lab Data DIAGNOSTICS: IMPRESSION: PLAN: History and Physical Update I have examined the patient; reviewed the H&P and there are no changes to the H&P unless noted below. Future Appointments Appointment Date:12/16/2023 02:00:00 PM Scheduled Provider:HARDEEP DOWENY DO Location:[facility] Appointment Type: OV Future Scheduled Tests Laboratory* Thyroid Stimulating Hormone 12/14/23 * A1C Hemoglobin 12/14/23 * Complete Blood Count 12/14/23 * Lipid Profile 12/14/23 * Vitamin D Level 12/14/23 * Complete Metabolic Panel 12/14/23 Radiology* MA Mammo Screening Bilateral w/ Milad 11/07/23 [facility] 08-19-2024 Hospital Discharge instructions Patient Education 11/17/2023 10:11:32 Monitored Anesthesia Care, Care After Monitored Anesthesia Care, Care After These instructions provide you with information about caring for yourself after your procedure. Your health care provider may also give you more specific instructions. Your treatment has been plannedaccording to current medical practices, but problems sometimes occur. Call your health care provider if you have any problems or questions after your procedure. What can I expect after the procedure? After your procedure, you may: Feel sleepy for several hours. Feel clumsy and have poor balance for several hours. Feel forgetful about what happened after the procedure. Have poor judgment for several hours. Feel nauseous or vomit. Have a sore throat if you had a breathing tube during the procedure. Follow these instructions at home: For at least 24 hours after the procedure: Have a responsible adult stay with you. It is important to have someone help care for you until youare awake and alert. Rest as needed. Do not: ?Participate in activities in which you could fall or become injured. ?Drive. ?Use heavy machinery. ?Drink alcohol. ?Take sleeping pills or medicines that cause drowsiness. ?Make important decisions or sign legal documents. ?Take care of children on your own. Eating and drinking Follow the diet that is recommended by your health care provider. If you vomit, drink water, juice, or soup when you can drink without vomiting. Make sure you have little or no nausea before eating solid foods. General instructions Take vdhs-fxt-octkxdo and prescription medicines only as told by your health care provider. If you have sleep apnea, surgery and certain medicines can increase your risk for breathing problems. Follow instructions from your health care provider about wearing your sleep device: ?Anytime you are sleeping, including during daytime naps. ?While taking prescription pain medicines, sleeping medicines, or medicines that make you drowsy. If you smoke, do not smoke without supervision. Keep all follow-up visits as told by your health care provider. This is important. Contact a health care provider if: You keep feeling nauseous or you keep vomiting. You feel light-headed. You develop a rash. You have a fever. Get help right away if: You have trouble breathing. Summary For several hours after your procedure, you may feel sleepy and have poor judgment. Have a responsible adult stay with you for at least 24 hours or until you are awake and alert. This information is not intended to replace advice given to you by your health care provider. Make sure you discuss any questions you have with your health care provider. Document Released: 07/07/2016 Document Revised: 06/15/2018 Document Reviewed: 07/07/2016 [employer] Patient Education 2020 [employer]. 11/17/2023 10:11:22 Esophagogastroduodenoscopy, Care After (76938) Esophagogastroduodenoscopy, Care After Refer to this sheet in the next few weeks. These instructions provide you with information about caring for yourself after your procedure. Your health care provider may also give you more specific instructions. Your treatment has been planned according to current medical practices, but problems sometimes occur. Call your health care provider if you have any problems or questions after your procedure. What can I expect after the procedure? After the procedure, it is common to have: A sore throat. Nausea. Bloating. Dizziness. Fatigue. Follow these instructions at home: Do not eat or drink anything until the numbing medicine (local anesthetic) has worn off and your gag reflex has returned. You will know that the local anesthetic has worn off when you can swallow comfortably. Do not drive for 24 hours if you received a medicine to help you relax (sedative). If your health care provider took a tissue sample for testing during the procedure, make sure to get your test results. This is your responsibility. Ask your health care provider or the department performing the test when your results will be ready. Keep all follow-up visits as told by your health care provider. This is important. Contact a health care provider if: You cannot stop coughing. You are not urinating. You are urinating less than usual. Get help right away if: You have trouble swallowing. You cannot eat or drink. You have throat or chest pain that gets worse. You are dizzy or light-headed. You faint. You have nausea or vomiting. You have chills. You have a fever. You have severe abdominal pain. You have black, tarry, or bloody stools. This information is not intended to replace advice given to you by your health care provider. Make sure you discuss any questions you have with your health care provider. Document Released: 03/03/2013 Document Revised: 08/22/2016 Document Reviewed: 02/08/2016 [employer] Interactive Patient Education 2019 [employer]. Follow Up Care 10/27/2023 11:16:26 With:CONCEPCIÓN MOORE MD [facility] [phone] When: Unknown Comments:CALL DR MOORE WITH ANY QUESTIONS OR CONCERNS. GO TO THE EMERGENCY ROOM WITH ANY URGENT CONCERNS. BIOPSIES WERE TAKEN TODAY AND SENT TO THE LAB FOR EVALUATION. YOU SHOULD HEAR FROM THE OFFICE BY THE END OF THE WEEK OF THESE RESULTS. IF YOU DO NOT HEAR FROM THEM, PLEASE CALL THEM. [facility] Note Discharge Instructions Thank you for allowing [facility] to assist you with your healthcare needs. The following is importantdischarge information regarding your hospital visit. Your Care Team HARDEEP DOWNEY DO DR. CONCEPCIÓN MOORE Your Diagnosis EGD WITH BIOPSIES What to do next Scheduled Follow-Up Appointments Appointment Type When With Where Contact Information StatusPC OV 12/16/2023 02:00 PM EDT HARDEEP DOWNEY DO [facility] [place] [address] [place] [address] Confirmed Follow Up Appointments Follow Up with CONCEPCIÓN MOORE MD Where:[address] [facility] [address] [place] [address] [phone] Additional Information: CALL DR MOORE WITH ANY QUESTIONS OR CONCERNS. GO TO THE EMERGENCY ROOM WITH ANY URGENT CONCERNS. BIOPSIES WERE TAKEN TODAY AND SENT TO THE LAB FOR EVALUATION. YOU SHOULD HEARFROM THE OFFICE BY THE END OF THE WEEK OF THESE RESULTS. IF YOU DO NOT HEAR FROM THEM, PLEASE CALL THEM. The Following Activity and Diet Have Been Ordered for You Discharge Activity - Ordered -- NO activity restrictions, 11/17/23 10:04:00 EDT Discharge Diet - Ordered -- Follow the post-operative/post-procedure diet instructions provided by your physician's office.,11/17/23 10:04:00 EDT The Following Equipment Has Been Ordered for You Discharge Home Equipment Discharge Wound Care - Ordered -- Follow the post-operative/post-procedure wound care instructions provided by your physician's office., 11/17/23 10:04:00 EDT Allergies penicillin(Severe) Rash TEGretol Fatigue, Dizziness sulfa drugs itching traMADol forgetfulness, Memory impairment Medications Please ask your primary doctor or pharmacist before taking any other medication not listed, including over the counter drugs, herbal medications, vitamins and or supplements as they may interact withyour home medications. What How Much When Why Instructions Last Dose Unchanged acetaminophen (Tylenol) 1,000 Milligram by mouth Every 8 hours not to exceed 3000 mg/ day Unchanged albuterol (albuterol MDI (90 mcg/ inh) CFC free inhalation aerosol) See instructions Wheezing 1 to 2 puff(s) Inhalation q4h, As needed for Shortness of breath or wheezing Unchanged ascorbic acid (Vitamin C) 500 Milligram by mouth Once a day Unchanged cholecalciferol (Vitamin D3) 2,000 by mouth Every day Unchanged clobetasol topical (clobetasol 0.05% topical solution) MASSAGE INTO THE SCALP AND LEAVE ON OVERNIGHT EVERY NIGHT FOR 2WKS, THEN USE 2- 3X WEEK NEEDED Unchanged fexofenadine (Archana 24 Hour Allergy oral tablet) 1 tab(s) by mouth Every day Unchanged herbal/ nutritional product (cranberry oral capsule) Unchanged herbal/ nutritional product (Probiotic) 1 cap by mouth Every day Unchanged ketoconazole topical (ketoconazole 2% topical shampoo) LATHER THE SCALP AND ALLOW TO SIT FOR 5-10 MINUTES BEFORE RINSING 3-4 DAYS A WEEK Unchanged levothyroxine (levothyroxine 75 mcg (0.075 mg) oral tablet) 1 tab(s) by mouth Once a day Unchanged liothyronine (liothyronine 5 mcg oral tablet) 1 tab(s) by mouth Every day Unchanged lisinopril (lisinopril 5 mg oral tablet) 1 tab(s) by mouth Once a day (in the evening) Unchanged metroNIDAZOLE topical (metroNIDAZOLE 0.75% topical gel) APPLY TO THE FULL FACE ONCE DAILY, MAY MIX 50/ 50 WITH A GENTLE MOISTURIZER. Unchanged multivitamin (Multivitamin) 1 tab(s) by mouth Every day Unchanged omeprazole by mouth Once a day Unchanged omeprazole (omeprazole 20 mg oral delayed release capsule) 1 cap by mouth Once a day Unchanged zinc sulfate (Zinc) 30 Milligram by mouth Once a day Please take this list to your next doctor s visit. Bring all medications you take, including over the counter medications, herbals and other supplements with you to your doctor s visit. Patients and families are reminded to discard old lists and to update any records with all medication providers or retail pharmacies. Education Materials Monitored Anesthesia Care, Care After These instructions provide you with information about caring for yourself after your procedure. Your health care provider may also give you more specific instructions. Your treatment has been plannedaccording to current medical practices, but problems sometimes occur. Call your health care provider if you have any problems or questions after your procedure. What can I expect after the procedure? After your procedure, you may: Feel sleepy for several hours. Feel clumsy and have poor balance for several hours. Feel forgetful about what happened after the procedure. Have poor judgment for several hours. Feel nauseous or vomit. Have a sore throat if you had a breathing tube during the procedure. Follow these instructions at home: For at least 24 hours after the procedure: Have a responsible adult stay with you. It is important to have someone help care for you until youare awake and alert. Rest as needed. Do not: ? Participate in activities in which you could fall or become injured. ? Drive. ? Use heavy machinery. ? Drink alcohol. ? Take sleeping pills or medicines that cause drowsiness. ? Make important decisions or sign legal documents. ? Take care of children on your own. Eating and drinking Follow the diet that is recommended by your health care provider. If you vomit, drink water, juice, or soup when you can drink without vomiting. Make sure you have little or no nausea before eating solid foods. General instructions Take mhpe-cms-yccibfs and prescription medicines only as told by your health care provider. If you have sleep apnea, surgery and certain medicines can increase your risk for breathing problems. Follow instructions from your health care provider about wearing your sleep device: ? Anytime you are sleeping, including during daytime naps. ? While taking prescription pain medicines, sleeping medicines, or medicines that make you drowsy. If you smoke, do not smoke without supervision. Keep all follow-up visits as told by your health care provider. This is important. Contact a health care provider if: You keep feeling nauseous or you keep vomiting. You feel light-headed. You develop a rash. You have a fever. Get help right away if: You have trouble breathing. Summary For several hours after your procedure, you may feel sleepy and have poor judgment. Have a responsible adult stay with you for at least 24 hours or until you are awake and alert. This information is not intended to replace advice given to you by your health care provider. Make sure you discuss any questions you have with your health care provider. Document Released: 07/07/2016 Document Revised: 06/15/2018 Document Reviewed: 07/07/2016 [employer] Patient Education 2020 [employer] Esophagogastroduodenoscopy, Care After Refer to this sheet in the next few weeks. These instructions provide you with information about caring for yourself after your procedure. Your health care provider may also give you more specific instructions. Your treatment has been planned according to current medical practices, but problems sometimes occur. Call your health care provider if you have any problems or questions after your procedure. What can I expect after the procedure? After the procedure, it is common to have: A sore throat. Nausea. Bloating. Dizziness. Fatigue. Follow these instructions at home: Do not eat or drink anything until the numbing medicine (local anesthetic) has worn off and your gag reflex has returned. You will know that the local anesthetic has worn off when you can swallow comfortably. Do not drive for 24 hours if you received a medicine to help you relax (sedative). If your health care provider took a tissue sample for testing during the procedure, make sure to get your test results. This is your responsibility. Ask your health care provider or the department performing the test when your results will be ready. Keep all follow-up visits as told by your health care provider. This is important. Contact a health care provider if: You cannot stop coughing. You are not urinating. You are urinating less than usual. Get help right away if: You have trouble swallowing. You cannot eat or drink. You have throat or chest pain that gets worse. You are dizzy or light-headed. You faint. You have nausea or vomiting. You have chills. You have a fever. You have severe abdominal pain. You have black, tarry, or bloody stools. This information is not intended to replace advice given to you by your health care provider. Make sure you discuss any questions you have with your health care provider. Document Released: 03/03/2013 Document Revised: 08/22/2016 Document Reviewed: 02/08/2016 [employer] Interactive Patient Education 2019 [employer] Additional Information VACCINATE! IT SAVES LIVES! Members of the community who have not yet received the COVID-19 vaccine and would like to receive it can visit one of [facility] vaccine clinics. There are many vaccine clinic locations within the [facility]. For locations and available times, please visit [email or web address].[place].gov/. It is important to note that some COVID mobile vaccine clinics are held outdoors and may be canceled in rainy or stormy conditions. To learn more about pediatric vaccinations (ages 5-11), we invite you to visit the [facility] webpage. https://www.[email or web address].org/pages/6883-Lznwi-Hxytfippgoz-Trfrgwnbsk-Jgxog-Iiw stions.htmlTo learn more about the COVID-19 vaccine, we invite you to visit the CDC website for a list of frequently asked questions.https://www.cdc.gov/coronavirus/2019-ncov/vaccines/faq.html [employer] Patient Portal Access Instructions: Stay connected with your healthcare team and access your personal medical information anytime with the [employer] Patient Portal. Please follow the directions below to create your [employer] account: 1.Access the email account you provided upon registration to the hospital/physician office.2.Look for an invitation email from [facility].3.Open the email and access the invitation link: AcceptInvitation to [employer]4.Fill in the required olivier to create your account. To access your account, visit [employer]hart. Click the blue button labeled Access Patient Portal and then log in with the username and password that you created in the steps above. You will be able to view your test results, lab results, a summary of your visits, upcoming appointments and more. There is also a convenient messaging option where you can send secure messages to your p [employer]. In addition, you will have the ability to download any documents or summaries to your computer and/or send the information securely to a physician. Remember that your healthcare information is confidential, so carefully consider who you will allowto register on the [employer] Patient Portal for access to your information. You can also access the [employer] Patient Portal on the [employer] chantell. Simply click on Patient Portal and then log into your account. If you would like to receive a full copy of your medical records, please contact the [facility] Medical Records Department by calling [phone], Friday through Friday between 8 a.m. and 4:30 p.m. HOW TO SAFELY DISPOSE OF PRESCRIPTION MEDICATIONS Please use one of the following methods to safely dispose of your unused medications. 1.Use a drug disposal kit: the drug disposal pouch allows you to safely discard your old and unuseddrugs. Ask your nurse to give you one when you are discharged.2.Visit a local take-back location: Many local pharmacies and police departments have programs that collect old and unwanted prescriptiondrugs. Call your local pharmacy or go to http://Tradersmail.com.CAPNIA/0I7Jz1l to find one close to you.3.Make use of household items: Use cat litter or old coffee grounds to dispose medications if other options arenot available. Mix your drugs with these household products, seal them in an airtight container andthrow it into the garbage. Call [facility]: [phone] to be sure your drugs can be disposed of in this way. Some medicines may require a different approach.4.Never flush your medications down the toilet. IF YOU HAVE BEEN PRESCRIBED AN OPIOID FOR PAIN If you have been prescribed an opioid (such as hydrocodone, oxycodone or morphine), it is critical to understand the possible side effects and risks of opioid pain medications. Even when taken as directed, opioids can have several side effects including: Tolerance, meaning you might need to take more of a medication for the same pain relief. Nausea, vomiting and/or constipation. Sleepiness, dizziness, dry mouth, confusion, depression or itching. Physical dependence, meaning you have withdrawal symptoms when a medication is stopped, can develop within a few days. KNOW YOUR RESPONSIBILITIES It is important to know exactly how much and how often to take the opioid pain medications you are prescribed. Never take opioids in higher amounts or more often than prescribed. Do not combine opioids with alcohol or other drugs that cause drowsiness, such as benzodiazepines, also known as benzos, including diazepam and alprazolam, muscle relaxants or sleep aids. Never sell or share prescription opioids. This is illegal. Store opioids in a secure place and out of reach of others (including children, family, friends and visitors). The last page of this document has been signed and retained as a CHART COPY. Signatures Patient Education Materials Monitored Anesthesia Care, Care After Esophagogastroduodenoscopy, Care After (21367) Medication Leaflets My discharge plan and instructions have been reviewed and explained to me and I,PRACHI PIERRE understand my current condition and have read and understand these discharge instructions. I have received a written copy of the plan/instructions. If I have questions, I am aware that I should contact my doctor. Patient/A P Manager Signature: Date/Time: Relationship to Patient: Witness Name/Signature: Date/Time: [facility]08-19-2024 Note Date of Service 11/17/2023 Procedure Name EGD with biopsy Consent Taken before procedure Indication Patient with epigastric pain history of peptic ulcer disease. Location [facility] Pre-Procedure Exam Epigastric pain Procedural Sedation Anesthesia provided a MAC Technique The patient was brought the endoscopy suite and placed left shoulder down. The endoscope was passedvisualization down to the esophagus the Z-line was 32 cm from the incisors. There was no evidence of Johnson's mucosa or inflammation of the esophagus. The stomach was easily insufflated there were no ulcers seen the bulb of the duodenum was normal the sweep of the duodenum was normal. Retroflexionperformed in the stomach showed no abnormalities around the cardia. The gastric mucosa appeared to show some erythema and multiple biopsies were taken of the antral region. The stomach was decompressed the endoscope was withdrawn the patient tolerated the procedure well. Post-Procedure Exam EGD with biopsy Findings Gastritis Complications None apparent Total Time Approximately 15 minutes Assessment/Plan Orders: Lactated Ringers Infusion 1,000 mL(LR 1,000 mL), 1000 mL, Intravenous Bedrest, 11/17/23 10:04:00 EDT, Strict, continuous, Constant order, Lying on side until alert or asordered Bedrest, 11/17/23 10:04:00 EDT, Strict, continuous, Constant order, Lying on side until alert or asordered Call Parameters, 11/17/23 10:04:00 EDT, Notify for vomiting, severe pain, signs of bleeding, severeabdominal pain, distention or rigidity, Constant order Communication Order (scheduled), 11/17/23 9:30:00 EDT, Once, 11/17/23 9:30:00 EDT, Pathology TissueRequest Communication Order (scheduled), 11/17/23 9:30:00 EDT, Once, 11/17/23 9:30:00 EDT, Urine Test or waiver for women of child bearing age Communication Order (scheduled), 11/17/23 9:30:00 EDT, Once, 11/17/23 9:30:00 EDT, Fasting Blood Sugar priot to procedure of patient is diabetic Diet Order, 11/17/23 10:04:00 EDT, Start Meal: Next meal, Clear Liquid Diet, Post exam or after gagreflex returns if EGD, Constant Order, : N/A, : N/A Discharge, 11/17/23 9:30:00 EDT, Discharged to: Home, when able to ambulate and after being seen byphysician Discharge Activity, NO activity restrictions, 11/17/23 10:04:00 EDT Discharge Diet, Follow the post-operative/post-procedure diet instructions provided by your physician's office., 11/17/23 10:04:00 EDT Discharge Wound Care, Follow the post-operative/post-procedure wound care instructions provided by your physician's office., 11/17/23 10:04:00 EDT Pathology Tissue Request, 11/17/23 9:59:00 EDT, Collected, Routine, Nurse Collect, AP Specimen, GASTRIC ANTRUM, SEE H&P, ESOPHAGOGASTRODUODENOSCOPY, EPIGASTRIC PAIN, EPIGASTRIC PAIN, Preferred Lab: [facility], [id number] Post Procedure Assessment, 11/17/23 10:04:00 EDT, Stop Date 11/17/23 10:04:00 EDT, [facility] in [facility] Recovery Room until Patrick Score of 12 or Preprocedure Sign Consent, 11/17/23 9:30:00 EDT, Once, For EGD Vital Signs, 11/17/23 10:04:00 EDT, q15min, 1 hour(s), 11/17/23 11:00:00 EDT Vital Signs, 11/17/23 10:04:00 EDT, q30min, 1 hour(s), 11/17/23 11:00:00 EDT Vital Signs PRN, 11/17/23 10:04:00 EDT, PRN order Follow Up/Recommendation Follow-up the biopsies continue the patient on a PPI. Digitally Signed by CONCEPCIÓN MOORE MD on 11/17/2023 10:07 AM [facility]08-19-2024 Note [place] ADMISSION HISTORY AND PHYSICIAL CHIEF COMPLAINT: HISTORY OF PRESENT ILLNESS: REVIEW OF SYSTEMS: ACTIVE PROBLEMS: (19) Anxiety (73037112) Claustrophobia (68520578) COVID-19 vaccination declined (2063581098) Fibromyalgia (479933851) Hyperglycemia (185096651) Hyperglycemia (008051564) Hyperlipidemia (67877201) HYPERTENSION (2425547960) Hypothyroidism (14016931) Hypothyroidism (91825473) Increased BMI (34939986) Knee osteoarthritis s/p TKA 2021 (876094393) Moderate recurrent major depression (929972627) AMARI on CPAP (574019733) Seasonal allergies (1357725714) Severe obesity (BMI 35.0-35.9 with comorbidity) (9226956691) Squamous cell carcinoma (96417689) Tinea pedis of left foot (64449318) Vitamin D deficiency (09730894) MEDICATIONS: Active Inpt Meds: None Active PRN Meds: None One Time Meds: (Completed) lidocaine (Xylocaine 2% 5 mL syringe (ANES) (ANES)) IV Push, Once, Stop: 11/17/23 10:00:00 EDT (Completed) propofol (propofol (ANES)) IV Push, Once, Stop: 11/17/23 10:00:00 EDT Active IV Meds: Lactated Ringers Infusion 1,000 mL (LR 1,000 mL) Start: 11/17/23 9:30:00 EDT, Rate: 50 mL/hr, 11/17/23 9:30:00 EDT ALLERGIES: (4) penicillin sulfa drugs TEGretol traMADol FAMILY HISTORY: SOCIAL HISTORY: PHYSICAL EXAM: VITALS: IrxiexXszqUXHzprqNYPbY0ENT1AarmGq(kg) 11/16 09:55----67--98.2--11/16 91.4 11/16 09:50----76------ 11/16 09:4235.8--507517WC 24 Hr Tmax: 35.8 at 11/16 09:42 36 Hr Tmax: 35.8 at 11/16 09:42 Vital Signs are the last 5 in the past 48 hours. Weights display the last 5 within 7 days. Initial Wt: 11/16 91.4 kg 201 lb Current Wt: 11/16 91.4 kg 201 lb GENERAL: HEENT: CARDIOVASCULAR: RESPIRATORY: ABDOMEN: EXREMETIES: NEUROLOGICAL: PSYCHIATRIC: LABS: No 36hr Lab Data DIAGNOSTICS: IMPRESSION: PLAN: History and Physical Update I have examined the patient; reviewed the H&P and there are no changes to the H&P unless noted below. Digitally Signed by CONCEPCIÓN MOORE MD on 11/17/2023 10:04 AM [facility]08-19-2024 Anesthesiology Consult note Patient: PRACHI PIERRE Age: 78 years Sex: Female : 1945 Associated Diagnoses: None Author: JESSE ALMARAZ Preoperative Information Time of last food or liquid consumption: 11/17/2023 00:00:00 Anesthesia history Patient's history: negative. Family's history: negative. Review of Systems Ear/Nose/Mouth/Throat: Negative. Respiratory: Sleep apnea. Cardiovascular: htn. Gastrointestinal: obese. Genitourinary: Negative. Endocrine: hypothyroid. Musculoskeletal: Negative. Integumentary: Negative. Neurologic: Negative. Health Status Allergies: Allergic Reactions (Selected) Severe Penicillin- Rash. Severity Not Documented Sulfa drugs- Itching. TEGretol- Dizziness and fatigue. TraMADol- Memory impairment and forgetfulness., Allergies (4) ActiveSeverityReaction penicillinSevereRash traMADolMemory impairment, forgetfulness sulfa drugsitching TEGretolDizziness, Fatigue Current medications: (Selected) Inpatient Medications Ordered LR 1,000 mL: 50 mL/hr, Intravenous Prescriptions Prescribed albuterol MDI (90 mcg/inh) CFC free inhalation aerosol: See Instructions, 1 to 2 puff(s) Kkglopsequb0d, PRN: Shortness of breath or wheezing, 18 gram(s), 0 Refill(s) levothyroxine 75 mcg (0.075 mg) oral tablet: 75 mcg, 1 tab(s), Oral, qDay, 90 tab(s), 1 Refill(s) liothyronine 5 mcg oral tablet: 5 mcg, 1 tab(s), Oral, Daily, 90 tab(s), 1 Refill(s) lisinopril 5 mg oral tablet: 5 mg, 1 tab(s), Oral, qPM, 90 tab(s), 3 Refill(s) omeprazole 20 mg oral delayed release capsule: 20 mg, 1 cap(s), Oral, qDay, 90 cap(s), 0 Refill(s) Documented Medications Documented Archana 24 Hour Allergy oral tablet: 180 mg, 1 tab(s), Oral, Daily Multivitamin: 1 tab(s), Oral, Daily, 0 Refill(s) Probiotic: 1 cap(s), Oral, Daily, 0 Refill(s) Tylenol: 1,000 mg, 2 tab(s), Oral, q8hr, not to exceed 3000 mg/day, 0 Refill(s) Vitamin C: 500 mg, Oral, qDay, 0 Refill(s) Vitamin D3: 2,000, Oral, Daily, 0 Refill(s) Zinc: 30 mg, Oral, qDay, 0 Refill(s) clobetasol 0.05% topical solution: MASSAGE INTO THE SCALP AND LEAVE ON OVERNIGHT EVERY NIGHT FOR 2WKS, THEN USE 2-3X WEEK NEEDED cranberry oral capsule: 0 Refill(s) ketoconazole 2% topical shampoo: LATHER THE SCALP AND ALLOW TO SIT FOR 5-10 MINUTES BEFORE RINSING 3-4 DAYS A WEEK metroNIDAZOLE 0.75% topical gel: APPLY TO THE FULL FACE ONCE DAILY, MAY MIX 50/50 WITH A GENTLE MOISTURIZER. omeprazole: Oral, qDay, 0 Refill(s), Medications (1) Active Scheduled: (0) Continuous: (1) Lactated Ringers Infusion 1,000 mL 1,000 mL, Intravenous, 50 mL/hr PRN: (0) Problem list: Medical Anxiety / SNOMED CT 75150700 / Confirmed Claustrophobia / SNOMED CT 64012467 / Confirmed Fibromyalgia / SNOMED CT 333807441 / Confirmed Hyperglycemia / SNOMED CT 599162384 / Confirmed Hyperglycemia / SNOMED CT 105581713 / Confirmed Hyperlipidemia / SNOMED CT 81780038 / Confirmed HYPERTENSION / SNOMED CT 2039763487 / Confirmed Hypothyroidism / SNOMED CT 01794834 / Confirmed Hypothyroidism / SNOMED CT 56215446 / Confirmed Increased BMI / SNOMED CT 45721056 / Confirmed AMARI on CPAP / SNOMED CT 903241504 / Confirmed Knee osteoarthritis s/p TKA 2021 / SNOMED CT 404742094 / Confirmed Moderate recurrent major depression / SNOMED CT 173617773 / Confirmed Seasonal allergies / SNOMED CT 8945125186 / Confirmed Severe obesity (BMI 35.0-35.9 with comorbidity) / SNOMED CT 7908959156 / Confirmed Squamous cell carcinoma / SNOMED CT 19321231 / Confirmed Tinea pedis of left foot / SNOMED CT 36558876 / Confirmed COVID-19 vaccination declined / SNOMED CT 8178597779 / Confirmed Vitamin D deficiency / SNOMED CT 08927983 / Confirmed, Active Problems (19) Anxiety Claustrophobia COVID-19 vaccination declined Fibromyalgia Hyperglycemia Hyperglycemia Hyperlipidemia HYPERTENSION Hypothyroidism Hypothyroidism Increased BMI Knee osteoarthritis s/p TKA 2021 Moderate recurrent major depression AMARI on CPAP Seasonal allergies Severe obesity (BMI 35.0-35.9 with comorbidity) Squamous cell carcinoma Tinea pedis of left foot Vitamin D deficiency Histories Past Medical History: No active or resolved past medical history items have been selected or recorded. Family History: Diabetes mellitus Mother () Breast cancer Mother Hypertension Mother Brother Heart disease Father CHF - Congestive heart failure Father () Stroke Father Father () Cancer Mother () Comments: 10/12/2018 15:19 Constanza Jesus LPN breast; family members in general HTN - Hypertension Mother () Brother Diabetes Mother Procedure history: Cataract (174734146) in the month of 09/2022 at 77 Years. Comments: 02/28/2023 8:21 Kathrine Evans LPN Left Cataract ([id number]) in the month of 08/2022 at 77 Years. Comments: 02/28/2023 8:21 Kathrine Evans LPN Right Left knee ([id number]) on 01/01/2022 at 76 Years. Skin cancer (3366823049) in 2013 at 68 Years. Comments: 10/12/2018 15:08 Constanza Pierre LPN skin cancer removed from face. [facility] [place] [place] Cholecystectomy (70153869) in 1992 at 47 Years. Appendectomy (135229782) in 1981 at 36 Years. Anterior and posterior repair of vagina (65138885). Abdominal hysterectomy (955743738). Hernia repair (15923017). Comments: 10/09/2018 15:35 Leana Knight LPN umbilical Carpal tunnel syndrome of right wrist ([id number]). Comments: 10/09/2018 15:35 Leana Knight LPN 1989 Colonoscopy (337910385). Sinus (3752999731). Social History: Social & Psychosocial Habits Alcohol 11/17/2023 Use: Never Substance Abuse 11/17/2023 Use: Never Tobacco 11/17/2023 Tobacco Use: Never (less than 100 in l Exposure to Tobacco Smoke Lives in non-smoking home Home/Environment 11/17/2023 Domestic Concerns None Living situation: Home/Independent Safe place to go: Yes Lives In Single level home Current Home Treatments Apnea monitoring, Blood Glucose monitoring Financial concerns: No Spouse Name Edaníbal Marital Status of Patient if Patient Independent Adult: Nutrition/Health 11/17/2023 Type of diet: Diabetic Caffeine intake amount: none currently Appetite Excellent Eating Difficulties None Physical Examination No qualifying data available General: Alert and oriented. Airway: Normal temporomandibular joint mobility. Mallampati classification: II (soft palate, fauces, uvula visible). Head: Normocephalic. Dentition Evaluation: Own teeth. Neck: Supple. Respiratory: Lungs are clear to auscultation. Cardiovascular: Normal rate. Heart Sounds: Normal. Gastrointestinal: Soft. Musculoskeletal Normal range of motion. Integumentary: Intact. Neurologic: Alert, Oriented. Review / Management Results review: No qualifying data available , Lab results 11/17/2023 9:45 EDT SN - Proc - Anesthesia Type MAC SN - Proc - EBL 0 mL SN - Proc - Actual Procedure ESOPHAGOGASTRODUODENOSCOPY 11/17/2023 9:45 EDT SN - PP - Body Position Lateral Right Side-up Standard Intra-op 11/17/2023 9:45 EDT SN - GCD - Post-operative Diagnosis EPIGASTRIC PAIN SN - GCD - Case Level OPD Level 3 11/17/2023 9:44 EDT SN - CAt - Case Attendee SN - CAt - Case Attendee SN - CAt - Case Attendee SN - CAt - Case Attendee SN - CAt - Case Attendee SN - CAt - Case Attendee SN - CAt - Case Attendee SN - CAt - Case Attendee SN - CAt - Role Performed Primary Surgeon SN - CAt - Role Performed [employer] SN - CAt - Role Performed Bowling Ball Grader 1 SN - CAt - Role Performed Calciner Operator 11/17/2023 9:42 EDT Urinary Elimination Voiding, no difficulties IV Present Present Allergies Yes Consent Form Signed Yes Patient Dressed In Hospital gown History & Physical Update On Chart Yes History & Physical On Chart Yes Obstructive Sleep Apnea Assess Completed Yes NPO Status Maintained Allergy Band on and Verified Yes Patient ID Band on and Verified Yes Implants Verified Yes Pacemaker/AICD Verified Yes Anesthesia Consent Signed Yes Last Fluid Intake 11/16/2023 0:00 Last Food Intake 11/17/2023 23:00 Last Void 11/17/2023 9:43 11/17/2023 9:38 EDT Designated Person #1 We May Share PHI Designated Person #1 We May Share PHI Designated Person #1 Relationship Spouse Designated Person #2 We May Share PHI Nydia Oneal- [phone] Designated Person #2 Relationship Daughter Additional Designated Person Share PHI Suzie Aden (daughter) - [phone] Privacy Restrictions Requested None Status N/A Sensory Deficits None Diagnosed With Sleep Apnea Yes Advanced Directives Yes Advance Directive Type [facility] Power of Forging Machine Hand for [facility] [place], [place] Declaration (Living Will) Advance Directive Location Family instructed to bring in copy Infectious Disease Symptoms Patient states no symptoms Infectious Disease Recent Exposure No Alcohol and Drug Use No Employee of Institutional Living No Health Care Employee No History of Exposure to TB No History of Positive Chest X-Ray for TB No History of Positive TB Skin Test No Homeless No Known Immunosuppression No Recent Immigrant No Resident of Institutional Living No Bloody Sputum No Fatigue No Fever No Loss of Appetite No Night Sweats No Persistent Cough > 3 Weeks No Weight Loss No Barriers to Learning None evident Teaching Method Explanation Preferred Spoken Language Urdu Preferred Written Language Urdu Teaching Evaluation No further teaching needed Safety Brochure Information Reviewed Unable to complete Ashely Neumann Video Viewed No Information Given by Unable to obtain Patient's Current Physicians SHAYAN History of Malignant Hyperthermia No Discharge To, Anticipated Home with family care Prev Test Positive/Diagnosis w/COVID-19 Yes Previous COVID-19 Positive Date Previous COVID-19 Positive Date Current Quarantine/Isolated any Illness No Any Contact with Sick Animals/Birds No Traveled Anywhere in Last 30 Days No Lost Weight Unintentionally Recently No Eat Poorly Due to Decreased Appetite No Total MST Score 0 N/A Personal Devices, Patient Valuables None Anesthesia/Transfusions Prior anesthesia Admission Note-Nursing Same Day Patient History . Assessment and Plan [place] [employer] (ASA) physical status classification: Class III. Anesthetic Preoperative Plan Anesthetic technique: MAC. Postoperative pain management: Per surgeon. Informed consent: signed by patient. Digitally Signed by JESSE ALMARAZ on 11/17/2023 09:47 AM [facility]07-16-2024 Instructions* Patient Instructions* Abdirahman Pastrana OD - 10/14/2023 11:03 AM EDT ASSESSMENT/PLAN: 1. Floaters, bilateral - ICD9: 379.24, ICD10: H43.393 (primary diagnosis) Vitreal floaters stable both eyes. Retinas flat and intact with no apparent retinal tear or traction. Discussed symptoms of retinal tear/detachment and if seen patient will return to clinic without delay. 2. Dry eyes, bilateral - ICD9: 375.15, ICD10: H04.123 Recommended the use of artificial tears four times per day to maintain good vision and comfort. Discussed contacting the office if there is a change in comfort or vision. Suggested the use of SystaneComplete and also discussed the option of an ointment at bedtime 3. Dermatochalasis of both upper eyelids - ICD9: 374.87, ICD10: H02.831, H02.834 Continue to monitor. Recommended yearly exams. [facility] NoteHNO ID: [id number] Author: ABDIRAHMAN PASTRANA OD Service: ? Author Type: AUTOMOTIVE MACHINIST APPRENTICE Type: Progress Notes Filed: 10/14/2023 11:03 Note Text: ASSESSMENT/PLAN: 1. Floaters, bilateral - ICD9: 379.24, ICD10: H43.393 (primary diagnosis) Vitreal floaters stable both eyes. Retinas flat and intact with no apparent retinal tear or traction. Discussed symptoms of retinal tear/detachment and if seen patient will return to clinic without delay. 2. Dry eyes, bilateral - ICD9: 375.15, ICD10: H04.123 Recommended the use of artificial tears four times per day to maintain good vision and comfort. Discussed contacting the office if there is a change in comfort or vision. Suggested the use of Systane Complete and also discussed the option of an ointment at bedtime 3. Dermatochalasis of both upper eyelids - ICD9: 374.87, ICD10: H02.831, H02.834 Continue to monitor. Recommended yearly exams. Abdirahman Pastrana OD I have confirmed and edited as necessary the relevant ophthalmic history, ROS, and the neuro exam findings as obtained by others.[facility] 10-14-2023 History of Present illness Narrative* Abdirahman Pastrana OD - 10/14/2023 11:01 AM EDT ASSESSMENT/PLAN: 1. Floaters, bilateral - ICD9: 379.24, ICD10: H43.393 (primary diagnosis) Vitreal floaters stable both eyes. Retinas flat and intact with no apparent retinal tear or traction. Discussed symptoms of retinal tear/detachment and if seen patient will return to clinic without delay. 2. Dry eyes, bilateral - ICD9: 375.15, ICD10: H04.123 Recommended the use of artificial tears four times per day to maintain good vision and comfort. Discussed contacting the office if there is a change in comfort or vision. Suggested the use of SystaneComplete and also discussed the option of an ointment at bedtime 3. Dermatochalasis of both upper eyelids - ICD9: 374.87, ICD10: H02.831, H02.834 Continue to monitor. Recommended yearly exams. Abdirahman Pastrana OD I have confirmed and edited as necessary the relevant ophthalmic history, ROS, and the neuro exam findings as obtained by others. [facility] Instructions* Patient Instructions* Yodit Garcia MD - 10/04/2022 10:34 AM EDT Current Ophthalmic Meds prednisoLONE acetate (PRED FORTE) 1 % ophthalmic suspension Use 1 Drop in the left eye four times daily. keTORolac (ACULAR) 0.5 % ophthalmic solution Use 1 Drop in the left eye four times daily. keTORolac (ACULAR) 0.5 % ophthalmic solution Use 1 Drop in the right eye three times daily. prednisoLONE acetate (PRED FORTE) 1 % ophthalmic suspension Use 1 Drop in the right eye three timesdaily. Continue: Systane Complete solution instill 1 drop 3 times daily Both Eyes. Continue post-operative care with Dr. Whitehead. If you have any questions please contact our office at [phone]. After office hours or on the weekend, please call Dr. Garcia on his cell phone at [phone]. [facility] History of Present illness Narrative* Yodit Garcia MD - 10/04/2022 10:33 AM EDT ASSESSMENT/PLAN: 1. Status post cataract extraction and insertion of intraocular lens of right eye - ICD9: V45.61, V43.1, ICD10: Z98.41, Z96.1 (primary diagnosis) 2. Status post cataract extraction and insertion of intraocular lens of left eye - ICD9: V45.61, V43.1, ICD10: Z98.42, Z96.1 Current Ophthalmic Meds prednisoLONE acetate (PRED FORTE) 1 % ophthalmic suspension Use 1 Drop in the left eye four times daily. keTORolac (ACULAR) 0.5 % ophthalmic solution Use 1 Drop in the left eye four times daily. keTORolac (ACULAR) 0.5 % ophthalmic solution Use 1 Drop in the right eye three times daily. prednisoLONE acetate (PRED FORTE) 1 % ophthalmic suspension Use 1 Drop in the right eye three timesdaily. Continue: Systane Complete solution instill 1 drop 3 times daily Both Eyes. Continue post-operative care with Dr. Whitehead. Yodit Garcia MD I have confirmed and edited as necessary the relevant ophthalmic history, review of systems, surgical history, and ophthalmological examination findings as obtained by the ophthalmic technical staff.I have seen and examined Prachi Pierre. I have discussed the examination findings, diagnosis, andtreatment options with Prachi Pierre and/or her family. I have also reviewed and agree with the assessment and plan as stated above and agree with all its relevant components. I gave the patient the opportunity to ask questions about the findings, diagnosis, and treatment options. documented in this [facility] NotePost Operative Note: Post-Procedure Diagnosis: 1. Combined Form Age Related Cataract Left Eye Procedure: 1. Cataract Extraction with Intraocular Lens Implant Left Eye Surgeon: Yodit Garcia MD Resident/Fellow/Other Sales And Support Center Agent: None Estimated Blood Loss (mL): none Specimen: no Findings: 1. Combined Form Age Related Cataract Left Eye Operative Report Dictated: Dictation: not applicable - note contains Operative Report Operative Report: The patient was correctly identified in the preop area and the operative eye was marked with a marking pen. The operative eye was dilated in the preoperative area. The patient was then taken to the operating room where timeout was performed before starting the procedure. Combined anesthesia with intravenous sedation and topical tetracaine eyedrops were given the left eye. The operative eye was prepped and draped in the standard sterile ophthalmic fashion in preparation for ophthalmic surgery. A Valerio wire speculum was then inserted between the eyelids of the left eye and the operating microscope was placed over the left eye. A paracentesis incision was made approximately 30 away from the planned surgical incision site with the help of MVR blade. 1% lidocaine MPF with Phenylephrine 1.5% PF was injected into the anterior chamber through the paracentesis incision. A near limbal clear corneal incision was fashioned in the temporal quadrant just outside the vascular arcade and Viscoat was injected into anterior chamber to firm the eye. A bent needle cystotome was used and Utrata forceps were utilized to create a continuous curvilinear capsulorrhexis. BSS was injected beneath the anterior capsule to hydrodissect the nucleus from adjacent cortex and capsule. The residual cortex were then aspirated with irrigation aspiration handpiece. The posterior capsule was then polished with the help of soft irrigation-aspiration tip. Provisc viscoelastic was then injected into the eye to reform the anterior chamber and to open the capsular bag. The intraocular lens implant was taken from its sterile wrapping, inspected under the surgical microscope and found to be in good condition. The intraocular lens implant 21.5D was injected into the capsule bag. The Provisc was then aspirated from the anterior chamber and from behind the intraocular lens implant. The anterior chamber was inflated with the help of BSS to moderate tension. The edges of the surgical incision were then hydrated with the help of BSS. Vigamox was then injected into the anterior chamber and into the capsule bag through the paracentesis incision. The surgical wound was then inspected and found to be watertight. The wire speculum and drapes were then removed. Pred Forte eyedrops, Acular eyedrops and Betadine 5% sterile ophthalmic solution were instilled in the conjunctival sac. The patient tolerated the procedure well and was taken to recovery room in stable condition. Attestation: Note Completion: Attending AttestationI performed the procedure without a resident Electronic Signatures: Yodit Garcia) (Signed 03-Oct-2022 14:18) Authored: Post Operative Note, Note Completion Last Updated: 03-Oct-2022 14:18 by Yodit Garcia)[facility] 10-03-2022 NoteHistory & Physical Reviewed: I have reviewed the History and Physical dated: 20-Sep-2022 History and Physical reviewed and relevant findings noted. Patient examined to review pertinent physical findings.: No significant changes Home Medications Reviewed: no changes noted Allergies Reviewed: no changes noted ERAS (Enhanced Recovery After Surgery): ERAS Patient: no Consent: COVID-19 Consent: COVID-19 Risk ConsentSurgeon has reviewed schafer risks related to the risk of sary COVID-19 and if they contract COVID-19 what the risks are. Electronic Signatures: Yodit Garcia) (Signed 03-Oct-2022 12:55) Authored: History & Physical Reviewed, ERAS, Consent, Note Completion Last Updated: 03-Oct-2022 12:55 by Yodit Garcia)[facility] 10-03-2022 Miscellaneous Notes* Op Note - Yodit Garcia MD - 10/03/2022 2:17 PM EDT Post Operative Note: Post-Procedure Diagnosis: 1. Combined Form Age Related Cataract Left Eye Procedure: 1. Cataract Extraction with Intraocular Lens Implant Left Eye Surgeon: Yodit Garcia MD Resident/Fellow/Other Sales And Support Center Agent: None Estimated Blood Loss (mL): none Specimen: no Findings: 1. Combined Form Age Related Cataract Left Eye Operative Report Dictated: Dictation: not applicable - note contains Operative Report Operative Report: The patient was correctly identified in the preop area and the operative eye was marked with a marking pen. The operative eye was dilated in the preoperative area. The patient was then taken to the operating room where timeout was performed before starting the procedure. Combined anesthesia with intravenous sedation and topical tetracaine eyedrops were given the left eye. The operative eye was prepped and draped in the standard sterile ophthalmic fashion in preparation for ophthalmic surgery. ALieberman wire speculum was then inserted between the eyelids of the left eye and the operating microscope was placed over the left eye. A paracentesis incision was made approximately 30 away from the planned surgical incision site with the help of MVR blade. 1% lidocaine MPF with Phenylephrine 1.5% PF was injected into the anterior chamber through the paracentesis incision. A near limbal clear corneal incision was fashioned in the temporal quadrant just outside the vascular arcade and Viscoat was injected into anterior chamber to firm the eye. A bent needle cystotome was used and Utrata forceps were utilized to create a continuous curvilinear capsulorrhexis. BSS was injected beneath the anterior capsule to hydrodissect the nucleus from adjacent cortex and capsule. The residual cortex were then aspirated with irrigation aspiration handpiece. The posterior capsule was then polished with t he help of soft irrigation-aspiration tip. Provisc viscoelastic was then injected into the eye to reform the anterior chamber and to open the capsular bag. The intraocular lens implant was taken fromits sterile wrapping, inspected under the surgical microscope and found to be in good condition. The intraocular lens implant 21.5D was injected into the capsule bag. The Provisc was then aspirated from the anterior chamber and from behind the intraocular lens implant. The anterior chamber was inflated with the help of BSS to moderate tension. The edges of the surgical incision were then hydratedwith the help of BSS. Vigamox was then injected into the anterior chamber and into the capsule bag through the paracentesis incision. The surgical wound was then inspected and found to be watertight.The wire speculum and drapes were then removed. Pred Forte eyedrops, Acular eyedrops and Betadine 5% sterile ophthalmic solution were instilled in the conjunctival sac. The patient tolerated the procedure well and was taken to recovery room in stable condition. Attestation: Note Completion: Attending Attestation I performed the procedure without a resident Electronic Signatures: Yodit Garcia) (Signed 03-Oct-2022 14:18) Authored: Post Operative Note, Note Completion Last Updated: 03-Oct-2022 14:18 by Yodit Garcia) documented in this [facility] Work Phone: 1(703) 226-549107-06-2023 Note* Op Note - Yodit Garcia MD - 10/03/2022 2:17 PM EDT Post Operative Note: Post-Procedure Diagnosis: 1. Combined Form Age Related Cataract Left Eye Procedure: 1. Cataract Extraction with Intraocular Lens Implant Left Eye Surgeon: Yodit Garcia MD Resident/Fellow/Other Sales And Support Center Agent: None Estimated Blood Loss (mL): none Specimen: no Findings: 1. Combined Form Age Related Cataract Left Eye Operative Report Dictated: Dictation: not applicable - note contains Operative Report Operative Report: The patient was correctly identified in the preop area and the operative eye was marked with a marking pen. The operative eye was dilated in the preoperative area. The patient was then taken to the operating room where timeout was performed before starting the procedure. Combined anesthesia with intravenous sedation and topical tetracaine eyedrops were given the left eye. The operative eye was prepped and draped in the standard sterile ophthalmic fashion in preparation for ophthalmic surgery. ALieberman wire speculum was then inserted between the eyelids of the left eye and the operating microscope was placed over the left eye. A paracentesis incision was made approximately 30 away from the planned surgical incision site with the help of MVR blade. 1% lidocaine MPF with Phenylephrine 1.5% PF was injected into the anterior chamber through the paracentesis incision. A near limbal clear corneal incision was fashioned in the temporal quadrant just outside the vascular arcade and Viscoat was injected into anterior chamber to firm the eye. A bent needle cystotome was used and Utrata forceps were utilized to create a continuous curvilinear capsulorrhexis. BSS was injected beneath the anterior capsule to hydrodissect the nucleus from adjacent cortex and capsule. The residual cortex were then aspirated with irrigation aspiration handpiece. The posterior capsule was then polished with t he help of soft irrigation-aspiration tip. Provisc viscoelastic was then injected into the eye to reform the anterior chamber and to open the capsular bag. The intraocular lens implant was taken fromits sterile wrapping, inspected under the surgical microscope and found to be in good condition. The intraocular lens implant 21.5D was injected into the capsule bag. The Provisc was then aspirated from the anterior chamber and from behind the intraocular lens implant. The anterior chamber was inflated with the help of BSS to moderate tension. The edges of the surgical incision were then hydratedwith the help of BSS. Vigamox was then injected into the anterior chamber and into the capsule bag through the paracentesis incision. The surgical wound was then inspected and found to be watertight.The wire speculum and drapes were then removed. Pred Forte eyedrops, Acular eyedrops and Betadine 5% sterile ophthalmic solution were instilled in the conjunctival sac. The patient tolerated the procedure well and was taken to recovery room in stable condition. Attestation: Note Completion: Attending Attestation I performed the procedure without a resident Electronic Signatures: Yodit Garcia) (Signed 03-Oct-2022 14:18) Authored: Post Operative Note, Note Completion Last Updated: 03-Oct-2022 14:18 by Yodit Garcia) [facility] Work Phone: 1(388) 915-177007-06-2023 History and physical note* Yodit Garcia MD - 10/03/2022 12:53 PM EDT History & Physical Reviewed: I have reviewed the History and Physical dated: 20-Sep-2022 History and Physical reviewed and relevant findings noted. Patient examined to review pertinent physical findings.: No significant changes Home Medications Reviewed: no changes noted Allergies Reviewed: no changes noted ERAS (Enhanced Recovery After Surgery): ERAS Patient: no Consent: COVID-19 Consent: COVID-19 Risk Consent Surgeon has reviewed schafer risks related to the risk of sary COVID-19 and if they contract COVID-19 what the risks are. Electronic Signatures: Yodit Garcia) (Signed 03-Oct-2022 12:55) Authored: History & Physical Reviewed, ERAS, Consent, Note Completion Last Updated: 03-Oct-2022 12:55 by Yodit Garcia) [facility] Work Phone: 1(411) 456-747707-06-2023 History and physical note* Yodit Garcia MD - 10/03/2022 12:53 PM EDT History & Physical Reviewed: I have reviewed the History and Physical dated: 20-Sep-2022 History and Physical reviewed and relevant findings noted. Patient examined to review pertinent physical findings.: No significant changes Home Medications Reviewed: no changes noted Allergies Reviewed: no changes noted ERAS (Enhanced Recovery After Surgery): ERAS Patient: no Consent: COVID-19 Consent: COVID-19 Risk Consent Surgeon has reviewed schafer risks related to the risk of sary COVID-19 and if they contract COVID-19 what the risks are. Electronic Signatures: Yodit Garcia) (Signed 03-Oct-2022 12:55) Authored: History & Physical Reviewed, ERAS, Consent, Note Completion Last Updated: 03-Oct-2022 12:55 by Yodit Garcia) documented in this encounterTri[facility] Work Phone: 1(518) 295-565306-23-2023 Instructions* Patient Instructions* Yodit Garcia MD - 09/20/2022 9:24 AM EDT Current Ophthalmic Meds keTORolac (ACULAR) 0.5 % ophthalmic solution Use 1 Drop in the right eye four times daily. For 7 days, then 3 times daily until 10/24/2022 prednisoLONE acetate (PRED FORTE) 1 % ophthalmic suspension Use 1 Drop in the right eye four times daily. For 7 days, then 3 times daily until 10/24/2022 Systane Complete Artificial Tears - Use 1 Drop into both eyes three times a day. Current Ophthalmic Meds fluorometholone (FML LIQUID FILM) 0.1 % ophthalmic suspension Use 1 Drop in the left eye three times daily. Surgery is scheduled for 10/03/2022 left eye at [facility] If you have any questions please contact our office at [phone]. After office hours or on the weekend, please call Dr. Garcia on his cell phone at [phone]. documented in this [facility] History of Present illness Narrative* Yodit Garcia MD - 09/20/2022 8:45 AM EDT ASSESSMENT/PLAN: 1. Combined form of age-related cataract, left eye - ICD9: 366.19, ICD10: H25.812 (primary diagnosis) PHYSICAL EXAM: Vital Signs: Blood pressure 126/58, pulse 71. Respiratory: Normal breath sounds, no wheezing. CARD: Normal heart sounds 1 & 2, normal sinus rhythm. Prachi Pierre has confirmed that she is no longer able to function adequately on a day-to-day basis because of her current visual condition. Further, it is my medical opinion that the cataract is the primary cause, or at least a significantcause of her visual dysfunction. Other eye diseases have been ruled out as primary cause of decreased vision. It is my expectation that visual function and quality of life will improve significantly with cataract extraction and intraocular lens implantation. The risks, benefits, alternatives, and complications of cataract surgery with intraocular lens implantation were discussed with Prachi Germán Pierre in detail. Prachi Dunlap Gabby appeared to understand and asked that I proceed with plans for cataract surgery. A complete, comprehensive eye examination and biometry has been performed on Prachi Pierre. Upon eye examination, patient was found to have a visually significant cataract left eye 3Discussed cataract surgery with patient and different intraocular lens implant options with patient: basic monofocal intraocular lens implant, Toric intraocular lens implant, and presbyopia correction intraocular lens implant. In my medical opinion, based on medical history and ocular examination, cataract surgery with intraocular lens implant will correct patient's vision and improve quality of patient's daily living activities. Patient wishes to have traditional cataract surgery with basic intraocular lens left eye 10/03/2022. Patient wishes to have cataract surgery with the option stated above. Patient understands that an intraocular lens implant does not necessarily replace the need forglasses. Patient understands that it is impossible for the surgeon to inform him/her of every possible complication that may occur. The surgeon has answered all of the patient's questions. Patient und erstands that if he/she has a mature or dense cataract, pseudoexfoliation cataract, or history of use of Flomax, he/she may require the use of Maluyugin Ring and/or Vision Blue during surgery. Patient understands the risks, benefits, and alternatives to surgery. Reviewed Dr. Whitehead's examination and notes today Patient understands she will need prism in her glasses to correct the muscle weakness 2. Status post cataract extraction and insertion of intraocular lens of right eye - ICD9: V45.61, V43.1, ICD10: Z98.41, Z96.1 Current Ophthalmic Meds keTORolac (ACULAR) 0.5 % ophthalmic solution Use 1 Drop in the right eye four times daily. For 7 days, then 3 times daily until 10/24/2022 prednisoLONE acetate (PRED FORTE) 1 % ophthalmic suspension Use 1 Drop in the right eye four times daily. For 7 days, then 3 times daily until 10/24/2022 Systane Complete Artificial Tears - Use 1 Drop into both eyes three times a day. 3. Dermatochalasis of left upper eyelid - ICD9: 374.87, ICD10: H02.834 4. Dermatochalasis of right upper eyelid - ICD9: 374.87, ICD10: H02.831 Patient may need to consult ocular plastics in the future 5. Unspecified sleep apnea - ICD9: 780.57, ICD10: G47.30 6. Arthritis - ICD9: 716.90, ICD10: M19.90 Continue care with primary care physician Yodit Garcia MD I have confirmed and edited as necessary the relevant ophthalmic history, review of systems, surgical history, and ophthalmological examination findings as obtained by the ophthalmic technical staff.I have seen and examined Prachi Pierre. I have discussed the examination findings, diagnosis, andtreatment options with Prachi Pierre and/or her family. I have also reviewed and agree with the assessment and plan as stated above and agree with all its relevant components. I gave the patient the opportunity to ask questions about the findings, diagnosis, and treatment options. [facility] NotePost Operative Note: Post-Procedure Diagnosis: 1. Combined Form Age Related Cataract Right Eye Procedure: 1. Cataract Extraction with Intraocular Lens Implant Right Eye Surgeon: Yodit Garcia MD Resident/Fellow/Other [employer] Agent: None Estimated Blood Loss (mL): none Specimen: no Findings: 1. Combined Form Age Related Cataract Right Eye Operative Report Dictated: Dictation: not applicable - note contains Operative Report Operative Report: The patient was correctly identified and the patient's operative eye was marked with a marking pen and verified with the patient in the pre-operative area. The operative eye was dilated in the preoperative area. The patient was then taken to the operating room where timeout was performed before starting the procedure. Combined anesthesia with intravenous sedation and topical tetracaine eyedrops were instilled into the right eye. The operative eye was prepped and draped in the standard sterile ophthalmic fashion in preparation for ophthalmic surgery. A Valerio wire speculum was then inserted between the eyelids of the right eye and the operating microscope was placed over the right eye. A paracentesis incision was made approximately 30 away from the planned surgical incision site with the help of MVR blade. 1% lidocaine MPF with Phenylephrine 1.5% PF was injected into the anterior chamber through the paracentesis incision. A near limbal clear corneal incision was fashioned in the temporal quadrant just outside the vascular arcade and Viscoat was injected into anterior chamber to firm the eye. A bent needle cystotome was used and Utrata forceps were utilized to create a continuous curvilinear capsulorrhexis. BSS was injected beneath the anterior capsule to hydrodissect the nucleus from adjacent cortex and capsule. The residual cortex was then aspirated with irrigation/aspiration handpiece. The posterior capsule was then polished with the help of soft irrigation-aspiration tip. Provisc viscoelastic was then injected into the eye to reform the anterior chamber and to open the capsular bag. The intraocular lens implant was taken from its sterile wrapping, inspected under the surgical microscope and found to be in good condition. The intraocular lens implant 21.0D was injected into the capsule bag. The Provisc was then aspirated from the anterior chamber and from behind the intraocular lens implant. The anterior chamber was inflated with the help of BSS to moderate tension. And the edges of the surgical incision were then hydrated with the help of BSS. Vigamox was then injected into the anterior chamber and into the capsule bag through the paracentesis incision. The surgical wound was then inspected and found to be watertight. The wire speculum and drapes were then removed. Pred Forte eyedrops, Acular eyedrops and Betadine 5% sterile ophthalmic solution were instilled in the conjunctival sac. The patient tolerated the procedure well and was taken to recovery room in stable condition. Attestation: Note Completion: Attending AttestationI performed the procedure without a resident Electronic Signatures: Yodit Garcia) (Signed 19-Sep-2022 11:50) Authored: Post Operative Note, Note Completion Last Updated: 19-Sep-2022 11:50 by Yodit Garcia)[facility] 09-19-2022 Miscellaneous Notes* Op Note - Yodit Garcia MD - 09/19/2022 11:40 AM EDT Post Operative Note: Post-Procedure Diagnosis: 1. Combined Form Age Related Cataract Right Eye Procedure: 1. Cataract Extraction with Intraocular Lens Implant Right Eye Surgeon: Yodit Garcia MD Resident/Fellow/Other Sales [employer] Support Center Agent: None Estimated Blood Loss (mL): none Specimen: no Findings: 1. Combined Form Age Related Cataract Right Eye Operative Report Dictated: Dictation: not applicable - note contains Operative Report Operative Report: The patient was correctly identified and the patient's operative eye was marked with a marking pen and verified with the patient in the pre-operative area. The operative eye was dilated in the preoperative area. The patient was then taken to the operating room where timeout was performed before starting the procedure. Combined anesthesia with intravenous sedation and topical tetracaine eyedrops were instilled into the right eye. The operative eye was prepped and draped in the standard sterile ophthalmic fashion in preparation for ophthalmic surgery. A Valerio wire speculum was then insertedbetween the eyelids of the right eye and the operating microscope was placed over the right eye. A paracentesis incision was made approximately 30 away from the planned surgical incision site with the help of MVR blade. 1% lidocaine MPF with Phenylephrine 1.5% PF was injected into the anterior chamber through the paracentesis incision. A near limbal clear corneal incision was fashioned in the temporal quadrant just outside the vascular arcade and Viscoat was injected into anterior chamber to firm the eye. A bent needle cystotome was used and Utrata forceps were utilized to create a continuouscurvilinear capsulorrhexis. BSS was injected beneath the anterior capsule to hydrodissect the nucleus from adjacent cortex and capsule. The residual cortex was then aspirated with irrigation/aspiration handpiece. The posterior capsule was then polished with the help of soft irrigation-aspiration tip. Provisc viscoelastic was then injected into the eye to reform the anterior chamber and to open the capsular bag. The intraocular lens implant was taken from its sterile wrapping, inspected under the surgical microscope and found to be in good condition. The intraocular lens implant 21.0D was injected into the capsule bag. The Provisc was then aspirated from the anterior chamber and from behind the intraocular lens implant. The anterior chamber was inflated with the help of BSS to moderate tension. And the edges of the surgical incision were then hydrated with the help of BSS. Vigamox was then injected into the anterior chamber and into the capsule bag through the paracentesis incision. The surgical wound was then inspected and found to be watertight. The wire speculum and drapes were then removed. Pred Forte eyedrops, Acular eyedrops and Betadine 5% sterile ophthalmic solution were instilled in the conjunctival sac. The patient tolerated the procedure well and was taken to recovery room in stable condition. Attestation: Note Completion: Attending Attestation I performed the procedure without a resident Electronic Signatures: Yodit Garcia) (Signed 19-Sep-2022 11:50) Authored: Post Operative Note, Note Completion Last Updated: 19-Sep-2022 11:50 by Yodit Garcia) documented in this [facility] Work Phone: 1(270) 304-908606-22-2023 NoteHistory & Physical Reviewed: I have reviewed the History and Physical dated: 16-Sep-2022 History and Physical reviewed and relevant findings noted. Patient examined to review pertinent physical findings.: No significant changes Home Medications Reviewed: no changes noted Allergies Reviewed: no changes noted ERAS (Enhanced Recovery After Surgery): ERAS Patient: no Consent: COVID-19 Consent: COVID-19 Risk ConsentSurgeon has reviewed schafer risks related to the risk of sary COVID-19 and if they contract COVID-19 what the risks are. Electronic Signatures: Yodit Garcia) (Signed 19-Sep-2022 09:40) Authored: History & Physical Reviewed, ERAS, Consent, Note Completion Last Updated: 19-Sep-2022 09:40 by Yodit Garcia)[facility] 09-[facility] Note* Op Note - Yodit Garcia MD - 09/19/2022 11:40 AM EDT Post Operative Note: Post-Procedure Diagnosis: 1. Combined Form Age Related Cataract Right Eye Procedure: 1. Cataract Extraction with Intraocular Lens Implant Right Eye Surgeon: Yodit Garcia MD Resident/Fellow/Other [employer] Agent: None Estimated Blood Loss (mL): none Specimen: no Findings: 1. Combined Form Age Related Cataract Right Eye Operative Report Dictated: Dictation: not applicable - note contains Operative Report Operative Report: The patient was correctly identified and the patient's operative eye was marked with a marking pen and verified with the patient in the pre-operative area. The operative eye was dilated in the preoperative area. The patient was then taken to the operating room where timeout was performed before starting the procedure. Combined anesthesia with intravenous sedation and topical tetracaine eyedrops were instilled into the right eye. The operative eye was prepped and draped in the standard sterile ophthalmic fashion in preparation for ophthalmic surgery. A Valerio wire speculum was then insertedbetween the eyelids of the right eye and the operating microscope was placed over the right eye. A paracentesis incision was made approximately 30 away from the planned surgical incision site with the help of MVR blade. 1% lidocaine MPF with Phenylephrine 1.5% PF was injected into the anterior chamber through the paracentesis incision. A near limbal clear corneal incision was fashioned in the temporal quadrant just outside the vascular arcade and Viscoat was injected into anterior chamber to firm the eye. A bent needle cystotome was used and Utrata forceps were utilized to create a continuouscurvilinear capsulorrhexis. BSS was injected beneath the anterior capsule to hydrodissect the nucleus from adjacent cortex and capsule. The residual cortex was then aspirated with irrigation/aspiration handpiece. The posterior capsule was then polished with the help of soft irrigation-aspiration tip. Provisc viscoelastic was then injected into the eye to reform the anterior chamber and to open the capsular bag. The intraocular lens implant was taken from its sterile wrapping, inspected under the surgical microscope and found to be in good condition. The intraocular lens implant 21.0D was injected into the capsule bag. The Provisc was then aspirated from the anterior chamber and from behind the intraocular lens implant. The anterior chamber was inflated with the help of BSS to moderate tension. And the edges of the surgical incision were then hydrated with the help of BSS. Vigamox was then injected into the anterior chamber and into the capsule bag through the paracentesis incision. The surgical wound was then inspected and found to be watertight. The wire speculum and drapes were then removed. Pred Forte eyedrops, Acular eyedrops and Betadine 5% sterile ophthalmic solution were instilled in the conjunctival sac. The patient tolerated the procedure well and was taken to recovery room in stable condition. Attestation: Note Completion: Attending Attestation I performed the procedure without a resident Electronic Signatures: Yodit Garcia) (Signed 19-Sep-2022 11:50) Authored: Post Operative Note, Note Completion Last Updated: 19-Sep-2022 11:50 by Yodit Garcia) [facility] Work Phone: 1(754) 523-979806-22-2023 History and physical note* Yodit Garcia MD - 09/19/2022 9:40 AM EDT History & Physical Reviewed: I have reviewed the History and Physical dated: 16-Sep-2022 History and Physical reviewed and relevant findings noted. Patient examined to review pertinent physical findings.: No significant changes Home Medications Reviewed: no changes noted Allergies Reviewed: no changes noted ERAS (Enhanced Recovery After Surgery): ERAS Patient: no Consent: COVID-19 Consent: COVID-19 Risk Consent Surgeon has reviewed schafer risks related to the risk of sary COVID-19 and if they contract COVID-19 what the risks are. Electronic Signatures: Yodit Garcia) (Signed 19-Sep-2022 09:40) Authored: History & Physical Reviewed, ERAS, Consent, Note Completion Last Updated: 19-Sep-2022 09:40 by Yodit Garcia) [facility] Work Phone: 1(259) 578-776106-22-2023 History and physical note* Yodit Garcia MD - 09/19/2022 9:40 AM EDT History & Physical Reviewed: I have reviewed the History and Physical dated: 16-Sep-2022 History and Physical reviewed and relevant findings noted. Patient examined to review pertinent physical findings.: No significant changes Home Medications Reviewed: no changes noted Allergies Reviewed: no changes noted ERAS (Enhanced Recovery After Surgery): ERAS Patient: no Consent: COVID-19 Consent: COVID-19 Risk Consent Surgeon has reviewed schafer risks related to the risk of sary COVID-19 and if they contract COVID-19 what the risks are. Electronic Signatures: Yodit Garcia) (Signed 19-Sep-2022 09:40) Authored: History & Physical Reviewed, ERAS, Consent, Note Completion Last Updated: 19-Sep-2022 09:40 by Yodit Garcia) documented in this encounterTri[facility] Work Phone: 1(807) 307-262806-19-2023 History of Present illness Narrative* Yodit Garcia MD - 09/16/2022 11:57 AM EDT ASSESSMENT/PLAN: 1. Combined forms of age-related cataract of right eye - ICD9: 366.19, ICD10: H25.811 (primary diagnosis) PHYSICAL EXAM: Vital Signs: Blood pressure 152/78, pulse (!) 15. Respiratory: Normal breath sounds, no wheezing. CARD: Normal heart sounds 1 & 2, normal sinus rhythm. Reviewed Dr. Whitehead's examination and notes today Patient understands she will need prism in her glasses to correct the muscle weakness Cataract Presurgical Documentation Cataract: Right eye (OD) Current Visual Acuity Right Eye Distance CC 20/50 Left Eye Distance CC 20/40 Visual Function: Prachi Pierre states that the decline in vision from the cataract impedes her abilities as listed in the HPI, as well as other activities of daily living. Prachi Pierre has confirmed that she is no longer able to function adequately on a day-to-day basis because of her current visual condition. Further, it is my medical opinion that the cataract is the primary cause, or at least a significantly contributory cause of her visual dysfunction. With uncomplicated cataract surgery and lens implantation, it is my expectation that her visual function and quality of life will improve, significantly. The risks, benefits, alternatives, personnel and complications of cataract surgery with lens implantation were discussed with Prachi Pierre in detail. she appeared to understand and asked that I proceed with plans for surgery. Upon eye examination, patient was found to have a visually significant cataract right eye 09/19/2022. Discussed cataract surgery with patient and different intraocular lens implant options with patient: basic monofocal intraocular lens implant, Toric intraocular lens implant, and presbyopia correction intraocular lens implant. In my medical opinion, based on medical history and ocular examination, cataract surgery with intraocular lens implant will correct patient's vision and improve quality of patient's daily living activities. Patient wishes to have traditional cataract surgery with basic intraocular lens right eye 09/19/2022. Patient wishes to have cataract surgery with the option stated above. Patient understands that an intraocular lens implant does not necessarily replace the need for glasses. Patient understands that it is impossible for the surgeon to inform him/her of every possible complication that may occur. The surgeon has answered all of the patient's questions. Patient understands that if he/she has a mature or dense cataract, pseudoexfoliation cataract, or history of use of Flomax, he/she may require the use of Maluyugin Ring and/or Vision Blue during surgery. Patient understands the risks, benefits, and alternatives to surgery. Patient is scheduled for physical/EKG on 09/10/2022 Begin medications as directed: Current Ophthalmic Meds fluorometholone (FML LIQUID FILM) 0.1 % ophthalmic suspension Use 1 Drop in both eyes three times daily. Systane Complete Artificial Tears - Use 1 Drop into both eyes three times a day. 2. Combined form of age-related cataract, left eye - ICD9: 366.19, ICD10: H25.812 Plan surgery left eye once right eye is stable 3. Dermatochalasis of left upper eyelid - ICD9: 374.87, ICD10: H02.834 4. Dermatochalasis of right upper eyelid - ICD9: 374.87, ICD10: H02.831 Patient may need to consult ocular plastics in the future 5. Unspecified sleep apnea - ICD9: 780.57, ICD10: G47.30 Continue care with primary care physician 6. Arthritis - ICD9: 716.90, ICD10: M19.90 Continue care with primary care physician Yodit Garcia MD I have confirmed and edited as necessary the relevant ophthalmic history, review of systems, surgical history, and ophthalmological examination findings as obtained by the ophthalmic technical staff.I have seen and examined Prachi Pierre. I have discussed the examination findings, diagnosis, andtreatment options with Prachi Pierre and/or her family. I have also reviewed and agree with the assessment and plan as stated above and agree with all its relevant components. I gave the patient the opportunity to ask questions about the findings, diagnosis, and treatment options. documented in this [facility] History of Past illness Narrative* Problem Noted Date Resolved Date Combined forms of age-related cataract of right eye 09/09/2022 09/20/2022 documented as of this encounter (statuses as of 09/20/2022) [facility] History of Past illness Narrative* Problem Noted Date Resolved Date Combined forms of age-related cataract of right eye 09/09/2022 09/20/2022 documented as of this encounter (statuses as of 10/04/2022) [facility] Hospital Discharge instructions Patient Education 01/02/2022 08:05:03 5 - [facility] Post-op Instruction 10/2016 ([id number]) [facility] Post-operative Instructions PLEASE FOLLOW [facility] POST-OP INSTRUCTIONS GIVEN WATCH FOR SIGNS OF INFECTION: call the office ([phone]) if experencing any of the following: (Usually appears 36-48 hours after surgery) Increased temperature (101 degrees Fahrenheit or higher) Redness or swelling Increased uncontrolled pain Foul odor or drainage Calf discomfort Significant swelling Or if having any chest pain, shortness of breath, or difficulty breathing or swallowing call the office or go the nearest Emergency Room. If you have any questions, please call your doctor at the number listed on your follow up instructions. Form: 338A (75152) R: 08/04 Follow Up Care 11/21/2021 14:40:45 With:[facility] Address: [address] [place] [phone] When:01/04/2022 10:30:00 Comments:This is your first physical therapy appointment. Follow-up as scheduled. With:CHLOE BOO PA-C, Orthopedic Address: [facility] [address] [place] [phone]- When:01/14/2022 13:45:00 Comments:This is your post-op appointment. Follow-up as scheduled. [facility] 10-05-2022 Note Discharge Instructions Thank you for allowing [facility] to assist you with your healthcare needs. The following is importantdischarge information regarding your hospital visit. Your Care Team Dr. Meliza Hickman APRN-ROPE TIER Your Diagnosis Status post total left knee replacement What to do next Scheduled Follow-Up Appointments Appointment Type When With Where Contact InformationPC OV [facility] 10[facility] [address] [place] [address] Follow Up Appointments Follow Up with CHLOE BOO PA-C, Orthopedic When 01/14/2022 01:45 PM EDT Why: This is your post-op appointment. Follow-up as scheduled. Where: [facility] [address] [place] [phone]- Follow Up with [facility] When 01/04/2022 10:30 AM EDT Why: This is your first physical therapy appointment. Follow-up as scheduled. Where: [address] [place] [address] [place] [phone]- [phone] The Following Activity and Diet Have Been Ordered for You Activity: Full weight bearing. Diet: No changes were made to your diet. The Following Treatments Have Been Ordered for You Discharge Labs No qualifying data available. Discharge Radiology No qualifying data available. Other Therapies No qualifying data available. Post Acute Orders No qualifying data available. Allergies penicillin (Rash) TEGretol (Fatigue, Dizziness) sulfa drugs (itching) traMADol (forgetfulness, Memory impairment) Medications Please ask your primary doctor or pharmacist before taking any other medication not listed, including over the counter drugs, herbal medications, vitamins and or supplements as they may interact withur home medications. What How Much When Why Instructions Last Dose New aspirin (aspirin 81 mg oral delayed release tablet) 1 tab(s) by mouth Two (2) times a day Duration: 30 Days Take 81 mg aspirin twice daily with food for 4 weeks postoperatively for DVT prophylaxis Pickup at [facility] #[id number] 01/02/22 at 0829 New docusate-senna (Senokot S 50 mg-8.6 mg oral tablet) 2 tab(s) by mouth Two (2) times a day Take until first bowel movement, then as needed Pickup at [facility] #[id number] 01/02/22 at 0829 New famotidine (Pepcid 20 mg oral tablet) 1 tab(s) by mouth Once a day Pickup at [facility] #[id number] 01/02/22 at 0829 New meloxicam (Mobic 7.5 mg oral tablet) 1 tab(s) by mouth Twice daily with meals Do not take any other nonsteroidal anti-inflammatories while on meloxicam/ Mobic Pickup at [facility] #[id number] START 01/03/22 New oxyCODONE (oxyCODONE 5 mg oral tablet ( IMMEDIATE release )) See instructions Status post total left knee replacement 1-2 tab(s) Oral q4h Pickup at [facility] #[id number] 01/02/22 at 0829 Changed acetaminophen (Tylenol) 1,000 Milligram by mouth Every 8 hours not to exceed 3000 mg/ day 01/02/22 at 0604 Unchanged ascorbic acid (Vitamin C) 500 Milligram by mouth Once a day none Unchanged cholecalciferol (Vitamin D3) 2,000 by mouth Every day none Unchanged fexofenadine (Archana 24 Hour Allergy oral tablet) 1 tab(s) by mouth Every day none Unchanged herbal/ nutritional product (Cinnamon 500 mg oral capsule) 1 cap by mouth Once a day none Unchanged herbal/ nutritional product (Probiotic) 1 cap by mouth Every day none Unchanged lisinopril (lisinopril 5 mg oral tablet) 1 tab(s) by mouth Once a day (in the evening) 01/01/22 at 10:30pm Unchanged magnesium oxide (magnesium oxide 500 mg oral tablet) 1 tab(s) by mouth Once a day none Unchanged multivitamin (Multivitamin) 1 tab(s) by mouth Every day none Unchanged thyroid desiccated (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 60 mg oral tablet) 1 tab(s) by mouth Once a day 01/02/22 at 0504 Unchanged zinc sulfate (Zinc) 30 Milligram by mouth Once a day none Pharmacy Information [id number]: [address], [place] [id number] [phone] What How Much When Why Comments Stop Taking DME (DME MISCellaneous) See instructions Diabetes onetouch verio test strips 1 strip 3 times daily # 300 for 90 days and 3 refills. Please take this list to your next doctor s visit. Bring all medications you take, including over the counter medications, herbals and other supplements with you to your doctor s visit. Patients and families are reminded to discard old lists and to update any records with all medication providers or retail pharmacies. Education Materials [facility] Post-operative Instructions PLEASE FOLLOW [facility] POST-OP INSTRUCTIONS GIVEN WATCH FOR SIGNS OF INFECTION: call the office ([phone]) if experencing any of the following: (Usually appears 36-48 hours after surgery) Increased temperature (101 degrees Fahrenheit or higher) Redness or swelling Increased uncontrolled pain Foul odor or drainage Calf discomfort Significant swelling Or if having any chest pain, shortness of breath, or difficulty breathing or swallowing call the office or go the nearest Emergency Room. If you have any questions, please call your doctor at the number listed on your follow up instructions. Form: 338A ([id number]) R: 08/04 Additional Information VACCINATE! IT SAVES LIVES! Members of the community who have not yet received the COVID-19 vaccine and would like to receive it can visit one of [facility] vaccine clinics. There are many vaccine clinic locations within the [facility]. For locations and available times, please visit [email or web address] It is important to note that some COVID mobile vaccine clinics are held outdoors and may be canceled in rainy or stormy conditions. To learn more about pediatric vaccinations (ages 5-11), we invite you to visit the [facility] webpage. [email or web address] learn more about the COVID-19 vaccine, we invite you to visit the [facility] website for a list of frequently asked questions. [email or web address] [facility] Patient Portal Access Instructions: Stay connected with your healthcare team and access your personal medical information anytime with the [facility] Patient Portal.If you would like a full copy of your medical records, please contact the [facility] Medical Records Department, Friday through Friday between 8a.m. and 4:30p.m. Please follow the directions below to access the portal: 1.Access the email account you provided upon registration to the hospital.2.Look for an invitation email from [facility].3.Open the email and access the invitation link: Accept Invitation to [facility]4.Fill in the required olivier to create your account. Sign into [email or web address] with your username and password that you created in the above steps to stay up to date. You can then view a summary of results, a summary of your visits, and the ability to download your summaries to your computer or send the information securely to a physician. Remember that your healthcare information is confidential, so carefully consider who you will allow to register on the [facility] Patient Portal for access to your information. You can also access the [facility] Patient Portal on the [employer]. Simply click on Health Records under [facility] and then click on the [employer] logo. HOW TO SAFELY DISPOSE OF PRESCRIPTION MEDICATIONS Please use one of the following methods to safely dispose of your unused medications. 1.Use a drug disposal kit: the drug disposal pouch allows you to safely discard your old and unuseddrugs. Ask your nurse to give you one when you are discharged.2.Visit a local take-back location: Many local pharmacies and police departments have programs that collect old and unwanted prescriptiondrugs. Call your local pharmacy or go to [email or web address] to find one close to you.3.Make use of household items: Use cat litter or old coffee grounds to dispose medications if other options arenot available. Mix your drugs with these household products, seal them in an airtight container andthrow it into the garbage. Call [facility]: [phone] to be sure your drugs can be disposed of in this way. Some medicines may require a different approach.4.Never flush your medications down the toilet. IF YOU HAVE BEEN PRESCRIBED AN OPIOID FOR PAIN If you have been prescribed an opioid (such as hydrocodone, oxycodone or morphine), it is critical to understand the possible side effects and risks of opioid pain medications. Even when taken as directed, opioids can have several side effects including: Tolerance, meaning you might need to take more of a medication for the same pain relief. Nausea, vomiting and/or constipation. Sleepiness, dizziness, dry mouth, confusion, depression or itching. Physical dependence, meaning you have withdrawal symptoms when a medication is stopped, can develop within a few days. KNOW YOUR RESPONSIBILITIES It is important to know exactly how much and how often to take the opioid pain medications you are prescribed. Never take opioids in higher amounts or more often than prescribed. Do not combine opioids with alcohol or other drugs that cause drowsiness, such as benzodiazepines, also known as benzos, including diazepam and alprazolam, muscle relaxants or sleep aids. Never sell or share prescription opioids. This is illegal. Store opioids in a secure place and out of reach of others (including children, family, friends and visitors). The last page of this document has been signed and retained as a CHART COPY. Signatures Patient Education Materials Norma Burns Post-op Instruction 10/2016 ([id number]) Medication Leaflets My discharge plan and instructions have been reviewed and explained to me and I,GABBY PRACHI understand my current condition and have read and understand these discharge instructions. I have received a written copy of the plan/instructions. If I have questions, I am aware that I should contact my doctor. Patient/A P Manager Signature: Date/Time: Relationship to Patient: Witness Name/Signature: Date/Time: [facility]10-05-2022 Note Date of Service January 02, 2022 Subjective The patient was sitting in bed upon examination. Patient denies any chest pain, shortness of breath, dizziness, lightheadedness, nausea or vomiting, or calf pain. No adverse overnight events. Pain has been controlled on medications. Patient states yesterday when she took the oxycodone she felt a little woozy. However she feels it could have been her blood sugar and when she ate she was better. She did not have that feeling again. Patient overall is doing well this morning. She is wanting to try to go home today. Objective Vitals and Measurements T: 36.4 C (Oral) TMIN: 35.5 C (Temporal Artery) TMAX: 36.4 C (Oral) HR: 84(Apical) RR: 18 BP: 137/61 SpO2: 93% HT: 160 cm WT: 88 kg BMI: 34.38 Intake and Output 7AM Yesterday to 7AM Today Intake and Output (Last 24 hours) Intake Administration Information 1553.46 Oral Intake 200.00 Supplement Intake 180.00 Output Intra-Op EBL 25.00 Stool Count 0.00 Urine Count 1.00 Total Summary Total Intake 1933.46 Total Output 25.00 Fluid Balance 1908.46 Physical Exam Vital signs stable, afebrile SCDs and RANDY hose are in place bilaterally Patient is able to plantarflex and dorsiflex actively Sensation is intact to saphenous, sural, superficial and deep peroneal, and tibial distribution Dressing is clean dry and intact Negative signs and symptoms of DVT, negative Homans bilaterally Weight Dosing Weight: 88 kg (01/01/22) Dosing Weight: 88 kg (01/01/22) Medications Medications (25) Active Scheduled: (14) acetaminophen 500 mg Tablet 1,000 mg 2 tab(s), Oral, q8hr aspirin 81 mg Chewable 81 mg 1 tab(s), Oral, BIDM bisacodyl 5 mg EC tablet 10 mg 2 tab(s), Oral, Once dexamethasone 10 mg/mL (1mL) SDV 10 mg 1 mL, IV Push, AsDirected docusate sodium 100 mg Capsule 100 mg 1 cap(s), Oral, BID docusate-senna (Senokot S) 50 mg-8.6 mg Tablet 2 tab(s), Oral, BID famotidine 20 mg tablet 20 mg 1 tab(s), Oral, qDay lisinopril 5 mg tablet 5 mg 1 tab(s), Oral, qPM magnesium hydroxide 8% Suspension 30 mL UD 30 mL, Oral, Daily magnesium oxide 400 mg Tablet 500 mg 1.25 tab(s), Oral, qDay meloxicam 7.5 mg tablet 7.5 mg 1 tab(s), Oral, BIDM multivitamin (Myadec) with minerals Therapeutic Multiple Vitamins with Minerals Tablet 1 tab(s), Oral, qDayM thyroid desiccated 60 mg tablet 60 mg 1 tab(s), Oral, qDay tranexamic acid PMX 1 gram(s) 100 mL, IV Piggyback, AsDirected Continuous: (1) Lactated Ringers 1,000 mL 1,000 mL, Intravenous, 100 mL/hr PRN: (10) acetaminophen 325 mg Tablet 650 mg 2 tab(s), Oral, q4h diphenhydramine 25 mg tablet 25 mg 1 tab(s), Oral, q6h diphenhyDRAMINE 50 mg/mL (1 mL) INJ 25 mg 0.5 mL, IV Push, q6h ketorolac 30 mg/mL (1 mL) vial 15 mg 0.5 mL, IV Push, q6h morphine 2 mg/mL 1 mL syringe 2 mg 1 mL, IV Push, q1h ondansetron 2 mg/ 1 mL 2 mL INJ 4 mg 2 mL, IV Push, q8h oxycodone 5 mg tablet (immediate release) 5 mg 1 tab(s), Oral, q4h oxycodone 5 mg tablet (immediate release) 10 mg 2 tab(s), Oral, q4h prochlorperazine 10 mg/2 mL vial 5 mg 1 mL, IV Push, q6h sodium biphosphate-sodium phosphate 19 gm-7 gm Enema 133 mL, Rectal, qDay Lab Results 01/02 05:27 WBC: 14.3 H Hgb: 12.3 Hct: 36.8 L Platelet: 172 Neutrophil %: 86.7 H Glucose Level: 147 H Sodium Level: 136 Potassium Level: 4.3 BUN: 24 H Creatinine Lvl (s): 0.89 EKG No qualifying data available. Assessment/Plan 1. Status post left total knee arthroplasty postop day #1 2. Continue pain medications: Tylenol, meloxicam, oxycodone. Do not take any other nonsteroidal anti-inflammatories while on meloxicam/Mobic 3. DVT prophylaxis: Take 81 mg aspirin twice daily with food for 4 weeks postoperatively for DVT prophylaxis 4. Physical therapy: Weightbearing as tolerated with walker 5. H & H: 12.3/36.8, asymptomatic. Postoperative anemia secondary to acute blood loss from surgery without intraoperative complications. 6. Reactive leukocytosis: Currently 14.3, afebrile. Patient did receive Decadron intraoperatively 7. Encouraged incentive spirometry 8. Continue postoperative medical management per medicine 9. Disposition: Overall patient is doing well this morning. Plan will be for discharge home today as long as pain is well controlled, tolerates therapy, and medically cleared. Patient would like her prescriptions E scribed to [facility] in [facility]. She has outpatient physical therapy established. She will follow-up per postop instructions. Upon discharge she will contact her office with any concerns or questions. I have reviewed the [place] Automated Rx Reporting System (OARRS) report for this patient for refill pattern and other prescriber involvement as part of the appropriate surveillance for the provision ofacute and chronic controlled medications. The report was requested and reviewed on the date of thisentr, and was considered in the prescribing process This dictation was created using voice recognition software. Phonetic and/or grammatical errors mayexist. Digitally Signed by CHLOE BOO PA-C on 01/02/2022 08:03 AM [facility]10-04-2022 Note ORIGINAL EXAMINATION: TWO XRAY VIEWS OF THE LEFT KNEE 01/01/2022 11:29 am COMPARISON: Prior CT of the knee dated 12/21/2021. HISTORY: ORDERING SYSTEM PROVIDED HISTORY: Reason for Exam: Status Post Arthroplasty FINDINGS: Postsurgical changes status post total knee arthroplasty are appreciated. No acute fracture, dislocation, or hardware failure is appreciated. Subcutaneous emphysema is seen. No unexpected radiopaque foreign body. Normal flabella is noted. IMPRESSION: Expected postsurgical changes status post left total knee arthroplasty. Interpreted by: Anibal Pickett MD Preliminary Report By: Anibal Pickett MD Electronically signed By Anibal Pickett MD Dictated Date: 01/01/2022 1:32:53 PM Prelim Date: 01/01/2022 1:33:38 PM Sign Date: 01/01/2022 1:33:38 PM Ordering Provider: YELENA HAIDER [facility]10-04-2022 Anesthesiology Consult note Patient: PRACHI PIERRE Age: 76 years Sex: Female : 1945 Associated Diagnoses: None Author: PENNIE ELIZABETH Assessment Postanesthesia assessment Vitals: Reviewed Results: Vital signs from flowsheet : Vital Signs(Date Range: 12/31/2021 0:00 EDT -01/01/2022 12:44 EDT) . Mental status: at preoperative baseline. Respiratory function: lungs are clear to auscultation. Respiratory support: none. CV function: Normal rate. Cardiovascular support: none. Pain. Nausea status: denies nausea. Postoperative hydration status: within normal limits. Digitally Signed by PENNIE ELIZABETH on 01/01/2022 12:44 PM [facility]10-04-2022 Note ORIGINAL EXAMINATION: TWO XRAY VIEWS OF THE LEFT KNEE 01/01/2022 11:29 am COMPARISON: Prior CT of the knee dated 12/21/2021. HISTORY: ORDERING SYSTEM PROVIDED HISTORY: Reason for Exam: Status Post Arthroplasty FINDINGS: Postsurgical changes status post total knee arthroplasty are appreciated. No acute fracture, dislocation, or hardware failure is appreciated. Subcutaneous emphysema is seen. No unexpected radiopaque foreign body. Normal flabella is noted. IMPRESSION: Expected postsurgical changes status post left total knee arthroplasty. Interpreted by: Anbial Pickett MD Preliminary Report By: Anibal Pickett MD Electronically signed By Anibal Pickett MD Dictated Date: 01/01/2022 1:32:53 PM Prelim Date: 01/01/2022 1:33:38 PM Sign Date: 01/01/2022 1:33:38 PM Ordering Provider: YELENA [facility]10-04-2022 Anesthesiology Consult note Patient: PRACHI PIERRE Age: 76 years Sex: Female : 1945 Associated Diagnoses: None Author: PENNIE ELIZABETH Preoperative Information Time of last food or liquid consumption: 01/01/2022 00:00:00 Anesthesia history Patient's history: negative. Family's history: negative. Health Status Allergies: Allergic Reactions (Selected) Severe Penicillin- Rash. Severity Not Documented Sulfa drugs- Itching. TEGretol- Dizziness and fatigue. TraMADol- Memory impairment and forgetfulness., Allergies (4) ActiveReaction penicillinRash sulfa drugsitching TEGretolFatigue traMADolMemory impairment Current medications: (Selected) Inpatient Medications Ordered Betadine 10% topical solution: 17.5 mL, mL/hr, Topical (INT), PREOP pharm Decadron: 10 mg, 1 mL, IV Push, AsDirected Kefzol: 2 gram(s), 200 mL/hr, IV Piggyback, PREOP pharm LR 1000 mL: 20 mL/hr, Intravenous, Stop: 01/02/22 17:59:00 EDT Naropin 25 mg + Toradol 15 mg + EPINEPHrine 1 mg/mL injectable solution 0.3 mg + morphine 2.5 mg...: 25 mg, 5 mL, mL/hr, Other, PREOP pharm Naropin 25 mg + Toradol 15 mg + EPINEPHrine 1 mg/mL injectable solution 0.3 mg + morphine 2.5 mg...: 25 mg, 5 mL, mL/hr, Other, PREOP pharm tranexamic acid 1 g / 100 mL 0.7% NaCl PMX: 1 gram(s), 100 mL, 300 mL/hr, IV Piggyback, AsDirected tranexamic acid 1 g / 100 mL 0.7% NaCl PMX: 1 gram(s), 100 mL, 300 mL/hr, IV Piggyback, AsDirected Prescriptions Prescribed DME MISCellaneous: See Instructions, onetouch verio test strips 1 strip 3 times daily # 300 for 90 days and 3 refills., 1 EA, 0 Refill(s) 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 60 mg oral 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: 60 mg, 1 tab(s), Oral, qDay, 90 tab(s), 1 Refill(s) lisinopril 5 mg oral tablet: 5 mg, 1 tab(s), Oral, qDay, 90 tab(s), 3 Refill(s) Documented Medications Documented Archana: Oral Cinnamon 500 mg oral capsule: See Instructions, 0 Refill(s) Multivitamin: 1 tab(s), Oral, Daily, 0 Refill(s) Probiotic: Oral, Daily, 0 Refill(s) Tylenol: 325 mg, Oral, Daily, 0 Refill(s) Vitamin C: 500 mg, Oral, qDay, 0 Refill(s) Vitamin D3: 2,000, Oral, Daily, 0 Refill(s) Zinc: 30 mg, Oral, qDay, 0 Refill(s) magnesium oxide 500 mg oral tablet: 500 mg, 1 tab(s), Oral, qDay, 0 Refill(s), Medications (8) Active Scheduled: (7) ceFAZolin 2 gram(s), IV Piggyback, PREOP pharm dexamethasone 10 mg/mL (1mL) SDV 10 mg 1 mL, IV Push, AsDirected povidone iodine topical 17.5 mL, Topical (INT), PREOP pharm ropivacaine 25 mg + ketorolac 15 mg + epinephrine 0.3 mg + morphine 2.5 mg 25 mg 5 mL, Other, PREOPpharm ropivacaine 25 mg + ketorolac 15 mg + epinephrine 0.3 mg + morphine 2.5 mg 25 mg 5 mL, Other, PREOPpharm tranexamic acid PMX 1 gram(s) 100 mL, IV Piggyback, AsDirected tranexamic acid PMX 1 gram(s) 100 mL, IV Piggyback, AsDirected Continuous: (1) Lactated Ringers 1000 mL 1,000 mL, Intravenous, 20 mL/hr PRN: (0) Problem list: Medical Anxiety / SNOMED CT 95543622 / Confirmed BMI 37.0-37.9, adult / SNOMED CT 341065575 / Confirmed Claustrophobia / SNOMED CT 31709048 / Confirmed Fibromyalgia / SNOMED CT 174104704 / Confirmed Hyperlipidemia / SNOMED CT 01059183 / Confirmed HYPERTENSION / SNOMED CT 5584375934 / Confirmed Hypothyroidism / SNOMED CT 07119015 / Confirmed Hypothyroidism / SNOMED CT 50395970 / Confirmed Increased BMI / SNOMED CT 03788445 / Confirmed Morbid obesity / SNOMED CT 246741730 / Confirmed AMARI on CPAP / SNOMED CT 648155796 / Confirmed Knee osteoarthritis / SNOMED CT 150346377 / Confirmed Prediabetes / SNOMED CT 6791848005 / Confirmed Moderate recurrent major depression / SNOMED CT 568424793 / Confirmed Squamous cell carcinoma / SNOMED CT 13244723 / Confirmed Tinea pedis of left foot / SNOMED CT 45633037 / Confirmed COVID-19 vaccination declined / SNOMED CT 1382354705 / Confirmed Vitamin D deficiency / SNOMED CT 53966055 / Confirmed, Active Problems (18) Anxiety BMI 37.0-37.9, adult Claustrophobia COVID-19 vaccination declined Fibromyalgia Hyperlipidemia HYPERTENSION Hypothyroidism Hypothyroidism Increased BMI Knee osteoarthritis Moderate recurrent major depression Morbid obesity AMARI on CPAP Prediabetes Squamous cell carcinoma Tinea pedis of left foot Vitamin D deficiency Histories Past Medical History: No active or resolved past medical history items have been selected or recorded., HTN, AMARI, NIDDM/prediabetes, elevated BMI Family History: Diabetes mellitus Mother () Breast cancer Mother Hypertension Mother Brother Heart disease Father CHF - Congestive heart failure Father () Stroke Father Father () Cancer Mother () Comments: 10/12/2018 15:19 Constanza Jesus LPN breast; family members in general HTN - Hypertension Mother () Brother Diabetes Mother Procedure history: Skin cancer (4622234140) in 2013 at 68 Years. Comments: 10/12/2018 15:08 Constanza Pierre LPN skin cancer removed from face. [facility] [place] Cholecystectomy (42058688) in 1992 at 47 Years. Appendectomy (027018719) in 1981 at 36 Years. Anterior and posterior repair of vagina (71766294). Abdominal hysterectomy (403638662). Hernia repair (73928708). Comments: 10/09/2018 15:35 Leana Knight LPN umbilical Carpal tunnel syndrome of right wrist ([id number]). Comments: 10/09/2018 15:35 Leana Knight LPN 1989 Colonoscopy (605427743). Sinus (2053593695). Social History Social & Psychosocial Habits Alcohol 10/09/2018 Use: Never Substance Abuse 10/09/2018 Use: Never Tobacco 06/22/2021 Tobacco Use: Never (less than 100 in l Exposure to Tobacco Smoke Lives in non-smoking home Home/Environment 06/22/2021 Living situation: Home/Independent Nutrition/Health 10/09/2018 Caffeine intake amount: 1 serving daily 01/01/2022 Type of diet: Diabetic Appetite Excellent Eating Difficulties None . Physical Examination Vital Signs 01/01/2022 8:03 EDT Temperature Temporal Artery 36.4 DegC Apical Heart Rate 81 bpm Respiratory Rate 15 br/min Systolic Blood Pressure NBP 138 mmHg Diastolic Blood Pressure NBP 68 mmHg Vital Signs(last 24 hrs) Last Charted Resp Rate 15 br/min (JAN 01 08:03) CVA250 mmHg (JAN 01 08:03) DBP68 mmHg (JAN 01 08:03) Measurements from flowsheet : Measurements 01/01/2022 8:03 EDT Height 160 cm Height in inches 63 inch(es) Admission Weight 88 kg Weight Lbs 193.6 lb [place] Body Weight 52.38 kg Admission Body Mass Index 34.37 m2 Pain assessment: Pain Assessment 01/01/2022 8:31 EDT Primary Pain Intensity 0 01/01/2022 8:03 EDT Primary Pain Intensity 0 Pain Scale Type 0-10 Pain scale . General: Alert and oriented. Airway: Normal temporomandibular joint mobility. Mallampati classification: II (soft palate, fauces, uvula visible). Head: Normocephalic. Dentition Evaluation: Intact. Neck: Supple. Respiratory: Lungs are clear to auscultation. Cardiovascular: Normal rate. Heart Sounds: Normal. Gastrointestinal: Soft. Musculoskeletal Normal range of motion. Integumentary: Intact. Neurologic: Alert. Review / Management Results review: No qualifying data available , Lab results 01/01/2022 8:36 EDT SN - Preop - CTm Pt in SDS Room 01/01/2022 7:53 SN - Preop - CTm Pt Ready for OR/Proced 01/01/2022 8:36 01/01/2022 8:31 EDT Primary Pain Intensity 0 famotidine 20 mg mg oxyCODONE 10 mg mg Lactated Ringers Injection 1,000 mL mL 01/01/2022 8:22 EDT Antecubital Right 01/01/2022 20 gauge Peripheral IV Activity: Insert new site Peripheral IV Dressing Condition: Clean, Dry, Intact Peripheral IV Dressing Activity: Applied Peripheral IV Line Status/Patency: Flushes easily Peripheral IV Site Condition: No complications Peripheral IV Number of Attempts: 1 01/01/2022 8:13 EDT citric acid-sodium citrate Not Done: Other (Not Done) 01/01/2022 8:03 EDT Blood Glucose, Capillary 106 mg/dL Height 160 cm Height in inches 63 inch(es) Admission Weight 88 kg Weight Lbs 193.6 lb [place] Body Weight 52.38 kg Admission Body Mass Index 34.37 m2 Temperature Temporal Artery 36.4 DegC Apical Heart Rate 81 bpm Respiratory Rate 15 br/min Systolic Blood Pressure NBP 138 mmHg Diastolic Blood Pressure NBP 68 mmHg Primary Pain Intensity 0 Pain Scale Type 0-10 Pain scale Monitor Alarms On and Limits Checked Nail Bed Color [place] Capillary Refill < 2 seconds Heart Rhythm Regular All Lobes Breath Sounds Clear Oxygen Therapy Room air Oxygen Saturation 96 % Abdomen Description Non-distended Abdomen Palpation Non-Tender Bowel Sounds All Quadrants Present Urinary Elimination Voiding, no difficulties Skin Temperature Warm Skin Description Normal for ethnicity Skin Integrity Intact Mucous Membrane Color [place] IV Present Present Extremity Movement Equal Characteristics of Speech Clear Level of Consciousness Alert Strength All Extremities Strong Tone All Extremities Normal Sensation All Extremities Intact Affect/Behavior Appropriate, Calm, Cooperative Orientation Oriented x 4 Allergies Yes Consent Form Signed Yes Patient Dressed In Hospital gown, Hospital top CHG Preoperative Wash/Wipe Night before procedure, Day of procedure Preop Nasal Swab Povidone-Iodine CHG Skin Prep Completed for Eligible Surgery History & Physical Update On Chart Yes History & Physical On Chart Yes Obstructive Sleep Apnea Assess Completed Yes Orientation Assessment Oriented x 4 Belongings At Bedside Glasses, Pants, Shoes, Socks, Sweatshirt, T-shirt, Undergarments Activity Status ADL Awake, Resting Assistive Device None SCD On/Re-applied right knee high Antiembolism Stocking On/Re-applied right thigh high NPO Status Maintained Standard Safety ID band on, Allergy Band on, Call device within reach, Bed in low position, Wheels locked, Upper/Half-Length side-rails up, Phone within reach, personal items within reach Demonstrates Correct Call Light Use Yes Allergy Band on and Verified Yes Blood Band on and Verified Yes Patient ID Band on and Verified Yes Implants Verified Yes Pacemaker/AICD Verified Yes Anesthesia Consent Signed Yes Blood Consent Signed Yes Last Fluid Intake 12/31/2021 22:30 Last Food Intake 12/31/2021 22:30 Last Void 01/01/2022 8:06 01/01/2022 8:00 EDT Sleep Apnea Snore No Sleep Apnea Tired No Sleep Apnea Obstruction No Sleep Apnea Pressure No Sleep Apnea BMI No Sleep Apnea Age Yes Sleep Apnea Neck No Sleep Apnea Gender No Sleep Apnea Score 1 Infectious Disease Symptoms Patient states no symptoms Safety Brochure Information Reviewed Yes [facility] Video Viewed No Teaching Evaluation Verbalizes/Nonverbally indicates understanding Admission Note-Nursing Same Day Patient History (Modified) . Assessment and Plan [place] [employer] (ASA) physical status classification: Class III. Anesthetic Preoperative Plan Premedication: intravenous. Anesthetic technique: Spinal. Regional: Spinal, Adductor Canal Block. Postoperative pain management: Per surgeon. Risks discussed: nausea, vomiting, headache, sore throat, dental injury, hypotension, allergic reaction, serious complications. Informed consent: signed by patient. Digitally Signed by PENNIE ELIZABETH on 01/01/2022 08:50 AM [facility]ments Appointment Date:02/15/2021 09:30:00 AM Scheduled Provider:KINGSLEY YUAN MD Location:[facility] Appointment Type:ENDO OV Appointment Date:05/15/2021 10:20:00 AM Scheduled Provider:HARDEEP DOWNEY DO Location:[facility] Appointment Type:PC OV Future Scheduled Tests Laboratory* Thyroid Stimulating Hormone 02/24/21 * Free T4 02/24/21 * A1C Hemoglobin 02/24/21 * Free T3 02/24/21 * Lipid Profile 02/24/21 * Vitamin D Level 02/24/21 * Complete Metabolic Panel 02/24/21 Radiology* MA Mammo Screening Bilateral w/ Milad 06/27/20 [facility] Evaluation + Plan note Future Appointments Appointment Date:02/15/2021 09:30:00 AM Scheduled Provider:KINGSLEY YUAN MD Location:[facility] Appointment Type:ENDO OV Appointment Date:05/15/2021 10:20:00 AM Scheduled Provider:HARDEEP DOWNEY DO Location:[facility] Appointment Type:PC OV Future Scheduled Tests Radiology* MA Mammo Screening Bilateral w/ Milad 06/27/20 [facility] Evaluation + Plan note Future Appointments Appointment Date:08/07/2021 11:00:00 AM Scheduled Provider:HARDEEP DOWNEY DO Location:[facility] Appointment Type:PC OV Follow Up [facility] Evaluation + Plan note Future Appointments Appointment Date:12/04/2021 10:30:00 AM Scheduled Provider:HARDEEP DOWNEY DO Location:[facility] Appointment Type:PC OV Follow Up Appointment Date:12/21/2021 11:00:00 AM Scheduled Provider: Location:[facility] Appointment Type:CT Knee w/o Contrast Left Future Scheduled Tests Radiology* CT Knee w/o Contrast Left 12/21/21 [facility] Evaluation + Plan note Future Appointments Appointment Date:02/28/2022 10:45:00 AM Scheduled Provider:HARDEEP DOWNEY DO Location:[facility] Appointment Type:PC OV [facility] Evaluation + Plan note Future Appointments Appointment Date:05/30/2022 11:30:00 AM Scheduled Provider:HARDEEP DOWNEY DO Location:[facility] Appointment Type:PC OV [facility] Evaluation + Plan note Future Appointments Appointment Date:11/28/2022 10:00:00 AM Scheduled Provider:HARDEEP DOWNEY DO Location:[facility] Appointment Type:PC OV Future Scheduled Tests Laboratory* Thyroid Stimulating Hormone 11/30/22 * A1C Hemoglobin 11/30/22 * Complete Blood Count 11/30/22 * Lipid Profile 11/30/22 * Vitamin D Level 11/30/22 * Complete Metabolic Panel 11/30/22 [facility] [employer]ivealuation + Plan note Future Appointments Appointment Date:11/28/2022 10:00:00 AM Scheduled Provider:HARDEEP DOWNEY DO Location:[facility] Appointment Type:PC OV [facility] Evaluation + Plan note Future Appointments Appointment Date:06/13/2023 09:30:00 AM Scheduled Provider:HARDEEP DOWNEY DO Location:[facility] Appointment Type:PC OV Diagnostic Tests Pending * Vitamin D Level 06/03/23 [facility] Evaluation + Plan note Future Appointments Appointment Date:12/16/2023 02:00:00 PM Scheduled Provider:HARDEEP DOWNEY DO Location:[facility] Appointment Type:PC OV Diagnostic Tests Pending * Lyme Disease Serology w/Reflex 06/13/23 Future Scheduled Tests Laboratory* Thyroid Stimulating Hormone 12/14/23 * A1C Hemoglobin 12/14/23 * Complete Blood Count 12/14/23 * Lipid Profile 12/14/23 * Vitamin D Level 12/14/23 * Complete Metabolic Panel 12/14/23 [facility] Evaluation + Plan note Future Appointments Appointment Date:12/16/2023 02:00:00 PM Scheduled Provider:HARDEEP DOWNEY DO Location:[facility] Appointment Type: OV Future Scheduled Tests Laboratory* Thyroid Stimulating Hormone 12/14/23 * A1C Hemoglobin 12/14/23 * Complete Blood Count 12/14/23 * Lipid Profile 12/14/23 * Vitamin D Level 12/14/23 * Complete Metabolic Panel 12/14/23 [facility] Evaluation + Plan note Future Appointments Appointment Date:08/12/2023 02:30:00 PM Scheduled Provider:HARDEEP DOWNEY DO Location:[facility] Appointment Type: OV Appointment Date:12/16/2023 02:00:00 PM Scheduled Provider:HARDEEP DOWNEY DO Location:[facility] Appointment Type: OV Future Scheduled Tests Laboratory* Thyroid Stimulating Hormone 12/14/23 * A1C Hemoglobin 12/14/23 * Complete Blood Count 12/14/23 * Lipid Profile 12/14/23 * Vitamin D Level 12/14/23 * Complete Metabolic Panel 12/14/23 [facility] Evaluation + Plan note Future Appointments Appointment Date:09/11/2023 09:00:00 AM Scheduled Provider:HARDEEP DOWNEY DO Location:[facility] Appointment Type: OV Appointment Date:12/16/2023 02:00:00 PM Scheduled Provider:HARDEEP DOWNEY DO Location:[facility] Appointment Type: OV Future Scheduled Tests Laboratory* Thyroid Stimulating Hormone 12/14/23 * A1C Hemoglobin 12/14/23 * Complete Blood Count 12/14/23 * Lipid Profile 12/14/23 * Vitamin D Level 12/14/23 * Complete Metabolic Panel 12/14/23 [facility] Evaluation + Plan note Future Appointments Appointment Date:12/11/2023 11:30:00 AM Scheduled Provider: Location:[facility] Appointment Type:PF PFT w/[place] Appointment Date:12/16/2023 02:00:00 PM Scheduled Provider:HARDEEP DOWNEY DO Location:[facility] Appointment Type: OV [facility] evaluation + Plan note Future Appointments Appointment Date:06/15/2024 02:00:00 PM Scheduled Provider:HARDEEP DOWNEY DO Location:[facility] Appointment Type:[facility] Future Scheduled Tests Laboratory* Thyroid Stimulating Hormone 06/14/24 * A1C Hemoglobin 06/14/24 * Complete Blood Count 06/14/24 * Lipid Profile 06/14/24 * Vitamin D Level 06/14/24 * Complete Metabolic Panel 06/14/24 [facility] evaluation + Plan note Future Appointments Appointment Date:12/16/2023 02:00:00 PM Scheduled Provider:HARDEEP DOWNEY DO Location:[facility] Appointment Type:[facility] evaluation + Plan note Future Appointments Appointment Date:12/14/2024 02:00:00 PM Scheduled Provider:HARDEEP DOWNEY DO Location:[facility] Appointment Type:PC [facility]ness Medicare Future Scheduled Tests Laboratory* Thyroid Stimulating Hormone 12/16/24 * Free T4 12/16/24 * A1C Hemoglobin 12/16/24 * Complete Blood Count 12/16/24 * Free T3 12/16/24 * Lipid Profile 12/16/24 * Vitamin D Level 12/16/24 * Complete Metabolic Panel 12/16/24 [facility] evaluation + Plan note Future Appointments Appointment Date:12/14/2024 02:00:00 PM Scheduled Provider:HARDEEP DOWNEY DO Location:[facility] Appointment Type:PC Wellness Medicare Future Scheduled Tests Radiology* MA Mammo Screening Bilateral w/ Milad 11/02/24 [facility] evaluation noteNo assessment information available [facility] Work Phone: evaluation note* Diagnosis Combined forms of age-related cataract of right eye- Primary Other and combined forms of senile cataract Combined form of age-related cataract, left eye Dermatochalasis of left upper eyelid Dermatochalasis Dermatochalasis of right upper eyelid Dermatochalasis Unspecified sleep apnea Arthritis Arthropathy, unspecified, site unspecified Combined form of age-related cataract, right eye documented in this encounter [facility]* Diagnosis Combined form of age-related cataract, left eye- Primary Status post cataract extraction and insertion of intraocular lens of right eye Dermatochalasis of left upper eyelid Dermatochalasis Dermatochalasis of right upper eyelid Dermatochalasis Unspecified sleep apnea Arthritis Arthropathy, unspecified, site unspecified documented in this encounter [facility] note* Diagnosis Status post cataract extraction and insertion of intraocular lens of right eye- Primary Status post cataract extraction and insertion of intraocular lens of left eye documented in this encounter [facility] note* Diagnosis Combined forms of age-related cataract, left eye Essential (primary) hypertension Unspecified essential hypertension Obstructive sleep apnea (adult) (pediatric) Hypothyroidism, unspecified Presence of unspecified artificial knee joint Allergy status to sulfonamides Allergy status to penicillin documented in this encounter [facility] Work Phone: Evaluation note* Diagnosis Combined forms of age-related cataract, right eye Essential (primary) hypertension Unspecified essential hypertension Obstructive sleep apnea (adult) (pediatric) Hypothyroidism, unspecified Allergy status to penicillin Allergy status to sulfonamides Obesity, unspecified Body mass index (BMI) 35.0-35.9, adult documented in this encounter [facility] Work Phone: Evaluation note* Diagnosis Floaters, bilateral- Primary Dry eyes, bilateral Tear film insufficiency, unspecified Dermatochalasis of both upper eyelids documented in this encounter [facility] note* Diagnosis Onset Date Resolution Status Admit Date Hematuria acute November 30, 2024 10:40am [facility] Work Phone: Hospital course Narrative No data available for this section [facility] Hospital Discharge instructions No data available for this section [facility] Progress note No data available for this section [facility] Reason for referral (narrative)No reason for referral [facility]: Summary Purpose Family History No Family History Records FoundNo Family History Records Found No data available for this section No data available for this section No data available for this section No data available for this section No data available for this section No data available for this section No Family History Records Found No data available for this section No Family History Records Found No data available for this section No data available for this section No data available for this section No data available for this section No data available for this section No data available for this section No Family History Records Found No data available for this section No Family History Records Found Advance Directives No Advanced Directives Records FoundNo Advanced Directives Records FoundNo Advanced Directives Records FoundNo Advanced Directives Records FoundNo Advanced Directives Records FoundNo Advanced Directives Records Found Chief Complaint and Reason for Visit Chief Complaint SCREENING Chief Complaint Admit Date SCREENING November 19, 2024 7: 47am Chief Complaint Admit Date SCREENING November 19, 2024 7: 47am bleeding w/o infection November 30 10:40am Reason for Visit Admit Date Hematuria November 30, 2024 10:40am Medications Administered Section Active Administered Medications - up to 3 most recent administrations Medication Order MAR Action Action Date Dose Rate Site proparacaine 0.5 % 1 Drop (ALCAINE) 1 Drop, BOTH EYES, DIRECTED, Starting on Fri09/16/22 at 1200, Until Fri09/16/22 at 2359, Administer for pneumo tonometry, tonopen tonometry, or pachymetry. In the event of a proparacaine shortage, administer tetracaine 0.5% ophthalmic drops 1 drop in the left eye as directed for pneumo tonometry, tonopen tonometry, or pachymetry Given 09/16/2022 12:00 PM EDT 1 Drop Additional Source Comments INFORMATION SOURCE (unrecogn ized section and content) DATE CREATED AUTHOR 01/20/2019 [facility] DATE CREATED AUTHOR AUTHOR'S ORGANIZ ATION 11/02/2022 [facility] DATE CREATED AUTHOR AUTHOR'S ORGANIZ ATION 10/18/2023 [facility] DATE CREATED AUTHOR AUTHOR'S ORGANIZ ATION 11/19/2023 [facility] [place] DATE CREATED AUTHOR AUTHOR'S ORGANIZ ATION 12/07/2024 [facility] DATE CREATED AUTHOR AUTHOR'S ORGANIZ ATION 12/12/2024 [facility] Care Team (unrecognized sect ion and content) 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 Relationship Specialty Start Date End Date Hardeep Downey, DO [address] [place] [id number] PCP - General Family Medicine 09/06/22 Fidel Whitehead [address] [facility], [place] [id number] Ophthalmology 09/06/22 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 Relationship Specialty Start Date End Date Hardeep Downey, DO [address] [place] [phone] PCP - General Family Medicine 09/06/22 Fidel Whitehead [address] [facility], [place] [phone] Ophthalmology 09/06/22 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 Relationship Specialty Start Date End Date Hardeep Downey DO [address] [place] [phone] PCP - General Family Medicine 09/06/22 Fidel Whitehead [address] [place], [place] [phone] Ophthalmology 09/06/22 Team Status: Active Member Role Status Dates Dr. Hardeep Downey DO Family Provider Active Dr. Hardeep Downey DO Primary Care Provider Activ e Team Status: Inactive Member Role Status Dates Dr. Hardeep Downey DO Primary Care Provider, Attending Provider, Referring Provider Active 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 Relationship Specialty Start Date End Date Hardeep Downey DO PCP - General 09/19/22 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 Relationship Specialty Start Date End Date Hardeep Downey DO [address] [place] [phone] PCP - General Family Medicine 09/06/22 Fidel Whitehead [address] [place], [place] [id number] Ophthalmology 09/06/22 Team Status: Active Member Role/Relationship Status Dates Dr. Hardeep Downey DO Primary Care Provider Activ e Team Status: Inactive Member Role/Relationship Status Dates Dr. Hardeep Downey DO Primary Care Provider Activ e Start: November 19, 2024 End: November 19, 2024 Dr. Hardeep Downey DO Attending Provider Active Start: November 19, 2024 End: November 19, 2024 Dr. Hardeep Downey DO Referring Provider Active Start: November 19, 2024 End: November 19, 2024 Team Status: Inactive Member Role/Relationship Status Dates Dr. Hardeep Downey DO Primary Care Provider Activ e Start: November 30, 2024 End: November 30, 2024 Dr. Hardeep Downey DO Referring Provider Active Start: November 30, 2024 End: November 30, 2024 Dr. Annmarie Mcdaniel MD Attending Provider Active Start: November 30, 2024 End: November 30, 2024 Goals (unrecognized section and content) Goals may be documented in a n alternate section Care Team (unrecognized sect ion and content) Care Team Personnel Name: Ronel King PT Position: P3 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 Advanced Member Role: Other Name: HARDEEP DOWNEY DO Position: P4 Physician - Primary Care Member Role: Primary Care Physician Address: Address: [address] [place] [id number] [place] [address] Care Team Related Persons Name: ZHEN PIERRE Address: Home [address] [place] [phone] [place] Care Team Personnel Name: Ronel King PT Position: P3 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 Advanced Member Role: Other Name: HARDEEP DOWNEY DO Position: P4 Physician - Primary Care Med Service: Active Provider Member Role: Primary Care Physician Address: Address: [address] [place] [address] Care Team Related Persons Name: NYDIA ONEAL Name: ZHEN PIERRE Address: Home [address] [place], [place] [id number] [place] Name: SUZIE ADEN Care Team Personnel Name: Ronel King Clerk Luann PT Position: P3 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 Advanced Member Role: Other Name: HARDEEP DOWNEY DO Position: P4 Physician - Primary Care Med Service: Active Provider Member Role: Primary Care Physician Address: Address: [address] [place] [address] Care Team Related Persons Name: NYDIA ONEAL Name: GABBY ZHEN Address: Home [address] [place] [phone] [place] Name: SUZIE ADEN Care Team Personnel Name: Ronel King Clerk Luann PT 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: P3 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 Advanced Member Role: Other Name: HARDEEP DOWNEY DO Position: P4 Physician - Primary Care Med Service: Active Provider Member Role: Primary Care Physician Address: Address: [address] [place] [address] Care Team Related Persons Name: NYDIA ONEAL Name: GABBY ZHEN Address: Home [address] [place] [phone] [place] Name: SUZIE ADEN Care Team Personnel Name: Ronel King Clerjolene Kong PT Position: P3 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 Advanced Member Role: Other Name: HARDEEP DOWNEY DO Position: P4 Physician - Primary Care Member Role: Primary Care Physician Address: Address: [address] [place] [address] Care Team Related Persons Name: NYDIA ONEAL Name: GABBY ZHEN Address: Home [address] [place] [phone] [place] Name: EDUARDOLT SUZIE Source Comments (unrecognize d section and content) In the event this informatio n is protected by the Federal Confidentiality of Alcohol and Drug Abuse Patient Records regulations: The Federal rules restrict any use of the information to criminally investigate or prosecute any alcohol or drug abuse patient.[facility] the event this information is protected by the Federal Confidentiality of Alcohol and Drug Abuse Patient Records regulations: The Federal rules restrict any use of the information to criminally investigate or prosecute any alcohol or drug abuse patient.[facility] the event this information is protected by the Federal Confidentiality of Alcohol and Drug Abuse Patient Records regulations: The Federal rules restrict any use of the information to criminally investigate or prosecute any alcohol or drug abuse patient.[facility] the event this information is protected by the Federal Confidentiality of Alcohol and Drug Abuse Patient Records regulations: The Federal rules restrict any use of the information to criminally investigate or prosecute any alcohol or drug abuse patient.[facility] Reason for Visit (unrecogniz ed section and content) Reason Comments Cataract Follow Up Reason Comments Post-op Cataract OD 09/19/2022 Cataract Follow Up Left eye Reason Comments Post-op Cataract OD Status Post Cataract Surgery with Monofocal Intraocular Lens Implant Right Eye (09/19/2022) Post-op Cataract OS Status Post Cataract Surgery with Monofocal Intraocular Lens Implant Left Eye (10/03/2022) Reason Comments Other Combined forms of ag e-related cataract, left eye Reason Comments Other Combined forms of ag e-related cataract, right eye Reason Comments Tearing Both Eyes In the mornings both eyes Dry Eye(s) Both Eyes Droopy Both Upper Lids FOR RECORDS PERTAINING TO PATIENTS WHO ARE OR HAVE BEEN ENROLLED IN A CHEMICAL DEPENDENCY/SUBSTANCEABUSE PROGRAM, SOME INFORMATION MAY BE OMITTED. This clinical summary was aggregated from multiple sources. Caution should be exercised in using it in the provision of clinical care. This summary normalizes information from multiple sources, and as a consequence, information in this document may materially change the coding, format and clinical context of patient data. In addition, data may be omitted in some cases. CLINICAL DECISIONS SHOULD BE BASED ON THE PRIMARY CLINICAL RECORDS. [employer] provides no warranty or guarantee of the accuracy or completeness of information in this document.
== END | disposition home or self-care (01) ==
LOC: CT 06:08
PROVIDERS: Referring Provider Urology; Visit Provider Urology
DX: R31.9 Hematuria, unspecified (principal)
CPT/HCPCS: 74178; Q9967; A4216